=== PATIENT | male | born 1945 | race Caucasian/White ===

== ENCOUNTER → 2018-07-07 07:32 | Outpatient (CLI) | payer OTHER, SELFPAY ==
[2018-07-07 08:11] LABS: Add Manual Diff / Slide Review NO; Basophils Percent Auto 0.6 % (0-2); Eosinophils Percent Auto 6.1 % (2-4); Hemoglobin 13.8 g/dL (13.5-17.5); Lymphocytes Percent Auto 51.2 % (25-40); Mean Corpuscular HGB Conc 33.8 % (30-36); Mean Corpuscular Hemoglobin 30.9 PG (26-34); Mean Corpuscular Volume 91.4 fL (80-100); Monocytes Percent Auto 5.9 % (3-14); Neutrophils Absolute Auto 2000 /uL (3000-5900); Neutrophils Percent Auto 36.2 % (50-75); Platelet Count 222 X10^3/uL (150-400); Red Blood Cell Count 4.48 X10^6/uL (4.5-5.9); White Blood Cell Count 5.7 X10^3/uL (4.5-11.0)
[2018-07-07 08:58] LABS: Thyroid Stimulating Hormone 1.35 uIU/mL (0.47-4.68)
[2018-07-07 09:05] LABS: Alanine Aminotransferase 39 IU/L (21-72); Albumin 4.3 g/dL (3.5-5.0); Albumin Globulin Ratio 1.7 (1.0-2.8); Alkaline Phosphatase 44 U/L (38-126); Aspartate Aminotransferase 29 IU/L (17-59); BUN Creatinine Ratio 16.4 (6-22); Bilirubin Total 0.5 mg/dL (0.2-1.3); Blood Urea Nitrogen 18 mg/dL (9-20); Calcium 9.5 mg/dL (8.4-10.2); Carbon Dioxide 27 mmol/L (22-32); Chloride 106 mmol/L (98-107); Cholesterol 170 mg/dL (140-199); Estimated Glomerular Filt Rate > 60.0 mL/min (>60); Globulin 2.5 g/dL (1.7-4.1); Glucose 99 mg/dL (80-110); HDL Cholesterol 37 mg/dL (40-60); HEMOLYSIS < 15 (0-50); LDL Cholesterol Calculated 105 mg/dL (<100); Potassium 4.7 mmol/L (3.4-5.1); Sodium 142 mmol/L (137-145); Total Protein 6.8 g/dL (6.3-8.2); Triglycerides 141 mg/dL (35-150)
[2018-07-07 09:34] LABS: Prostate Specific Antigen Scrn 3.96 ng/mL (0.1-4.0)
== END ==
PROVIDERS: Family Provider Family Medicine; PCP Family Medicine; Visit Provider Family Medicine
DX: E78.5 Hyperlipidemia, unspecified (principal); I10 Essential (primary) hypertension; R97.20 Elevated prostate specific antigen [PSA]
CPT/HCPCS: 36415; 80053; 80061; 84443; 85025; G0103

== ENCOUNTER → 2018-07-14 11:29 | Outpatient (CLI) | payer OTHER, SELFPAY | PROVIDERS: Family Provider Family Medicine; PCP Family Medicine; Visit Provider Family Medicine | DX: R53.83 Other fatigue (principal) | CPT/HCPCS: 36415; 84403 ==

== ENCOUNTER → 2019-04-16 07:45 | Outpatient (CLI) | payer OTHER, SELFPAY ==
[2019-04-16 10:05] LABS: Prostate Specific Antigen 5.95 ng/mL (0.10-4.00)
== END ==
PROVIDERS: PCP Family Medicine; Visit Provider Family Medicine
DX: R35.0 Frequency of micturition (principal); Z87.898 Personal history of other specified conditions
CPT/HCPCS: 36415; 84153

== ENCOUNTER → 2019-04-28 10:04 | Outpatient (CLI) | payer OTHER, SELFPAY ==
--- NOTE | 2019-04-28 10:06 | DI.RAD.S_ITS ---
PROCEDURE: XR SHOULDER LT MIN 2V INDICATIONS: Pain TECHNIQUE: 3 views of the shoulder were acquired. COMPARISON: [facility], , SHOULDER MINIMUM 2VIEW RIGHT, 08/24/2014, 14:43. FINDINGS: Bones: No fractures or dislocations. No suspicious bony lesions. Visualized ribs appear intact. Soft tissues: No suspicious soft tissue calcifications. IMPRESSION: No trauma found. Source of pain is not seen. Dictated by: Spenser Bond M.D. on 04/28/2019 at 10:55 Approved by: Spenser Bond M.D. on 04/28/2019 at 10:55
--- NOTE | 2019-04-28 10:06 | DI.RAD.S_ITS ---
PROCEDURE: XR SHOULDER RT MIN 2V INDICATIONS: Pain TECHNIQUE: 3 views of the shoulder were acquired. COMPARISON: [facility], , SHOULDER MINIMUM 2VIEW RIGHT, 08/24/2014, 14:43. FINDINGS: Bones: No fractures or dislocations. Moderate a.c. joint osteoarthritis is again noted, similar to that present in the August 2014. No suspicious bony lesions. Visualized ribs appear intact. Soft tissues: No suspicious soft tissue calcifications. IMPRESSION: Moderate a.c. joint osteoarthritis, stable over time. Dictated by: Spenser Bond M.D. on 04/28/2019 at 11:09 Approved by: Spenser Bond M.D. on 04/28/2019 at 11:10
== END ==
PROVIDERS: PCP Family Medicine; Visit Provider Family Medicine
DX: M25.511 Pain in right shoulder (principal); M25.512 Pain in left shoulder; M19.011 Primary osteoarthritis, right shoulder
CPT/HCPCS: 73030

== ENCOUNTER → 2019-05-08 09:35 | Outpatient (CLI) | payer OTHER, SELFPAY ==
--- NOTE | 2019-05-08 09:36 | DI.MRI.S_ITS ---
PROCEDURE: MR SHOULDER RT WO CON INDICATIONS: Pain TECHNIQUE: Noncontrast oblique coronal T2 fast spin echo with fat saturation, oblique sagittal T1 spin echo and T2 fast spin echo with fat saturation, axial T1 spin echo and T2 fast spin echo with fat saturation through the shoulder. COMPARISON: [facility], MR, SHOULDER WITHOUT CONTRAST, 09/05/2014, 9:12. FINDINGS: Image quality: Excellent. Rotator cuff: The supraspinatus, infraspinatus, and subscapularis tendons appear intact throughout with left there is a finding of striations of elevated fluid signal within the supraspinatus portion of the rotator cuff, indicating presence of partial thickness tear, articular margin. This likely is chronic given presence of abnormal signal in that same area on prior MR scanning of the right shoulder 09/05/14. Sagittal images demonstrate no muscle atrophy. Bones and bursae: No bone marrow contusions or fractures. There is moderate acromioclavicular joint degeneration, and moderately severe such degeneration at the glenohumeral articulation where several subchondral cysts are seen in deep to the inferior third of the glenoid articular surface, previously present. The acromion demonstrates conventional anatomy, without an os acromiale. No pathologic subacromial-subdeltoid or subcoracoid bursal fluid is present. Capsule and soft tissues: In the absence of intra-articular contrast, the labrum and glenohumeral ligaments appear intact. The long head of the biceps tendon demonstrates normal location and morphology. The rotator interval appears normal, without fibrosis. The coracohumeral ligament is normal in thickness. IMPRESSION: Partial thickness likely chronic supraspinatus rotator cuff tear, given the striated elevated fluid signal in the same area prior supraspinatus tear that appeared acute identified 09/05/14 on prior shoulder MR scanning. No intra-articular loose body is seen. Moderate to moderately severe shoulder joint osteoarthritis contributing to chronic impingement against the normal course of the supraspinatus tendon. Dictated by: Spenser Bond M.D. on 05/10/2019 at 11:47 Approved by: Spenser Bond M.D. on 05/10/2019 at 12:47
== END ==
PROVIDERS: PCP Family Medicine; Visit Provider Family Medicine
DX: M25.511 Pain in right shoulder (principal); M75.111 Incomplete rotator cuff tear or rupture of right shoulder, not specified as traumatic; M75.41 Impingement syndrome of right shoulder; M19.011 Primary osteoarthritis, right shoulder
CPT/HCPCS: 73221

== ENCOUNTER 2019-06-08 11:15 | Outpatient (RCR) | payer OTHER, SELFPAY ==
--- NOTE | 2019-04-01 18:41 | PT.OIE ---
Current Diagnoses Pain in right shoulder (04/01/19) Pain in left shoulder (04/01/19) Past Medical History (Last Updated 07/13/18 @ 10:53 by Marcela Perkins) Elevated PSA (Chronic 2011) Hearing loss (Chronic 1995) Shoulder pain (Chronic 05/2014) Vertigo (Chronic 1997) Chicken pox (Resolved 1953) Measles (Resolved) Mumps (Resolved 1956) Past Surgical History (Last Updated 07/13/18 @ 10:53 by Marcela Perkins) No history of previous surgery (Resolved 01/2017) Provider Visit Care Team Role Provider Type Zac Polk MD Primary Care Provider Physician Specialty: Family Practice Address: [address] [place] [address] Email: [email or web address] KAY Ramirez Attending Provider Advanced Veneer Taping Machine Offbearer Specialty: [facility] Address: [address] [place] [address] Email: Physical Therapy Initial Evaluation PT-OP-A Visit Information Start: 03/26/19 16:55 Freq: Status: Active Protocol: Document 04/01/19 13:41 LRN (Rec: 04/01/19 13:57 LRN [id number]) Out-Patient Physical Therapy Visit Information Visit Information Visit Type Initial Evaluation Visit Start Time 13:45 Visit Stop Time 14:30 Total Visit Minutes 45 Visit Number 1 Number of BACK TUFTER Visits 0 Evaluation Information Evaluation Date 04/01/19 Precautions Precautions Controlled HBP PT-OP-B Current Condition Start: 03/26/19 16:55 Freq: Status: Active Protocol: Document 04/01/19 13:41 LRN (Rec: 04/01/19 13:57 LRN [id number]) Current Condition History of Current Condition Onset Date 1 month ago History of Current Condition Was in [place]. Was doing a lot of swimming and fishing for 3 weeks and woke with vance shoulder pain that continued to worsen. Sometimes it is on the top of the shoulder and sometimes it radiates down to the mid lateral arms. He reports recently he is able to move around better and doesn' t hurt as bad when waking up. He is taking medications for his feet (anti-inflammatory) & Alleve for 4 months. Pt reports his shoulder pain is 6 /10 at its worse. Currently while at rest his pain is 2/10 . Resting doesn't change his pain. He denies numbness or tingling in his UE's. Treatment Goals Patient/Caregiver Goals Pt goals: 1) to learn what to do to properly care for his shoulders 2) be able to reach above shoulder height without pain 3) have less pain with waking in the morning (2/10 or less) Prior Functional Status Baseline Function- ADL's Independent Baseline Function- Mobility Independent Baseline Function- Other No shoulder pain, bilaterally, upon walking or using the arms. Current Functional Impairments (Reported) Functional Limitations- ADL's Unable to lift his arms without onset of shoulder pain . Pain starts ~ 30 or 90 deg' s flexion, primarily on the right. Functional Limitations- Mobility/Gait Lifting overhead Functional Limitations- Other Waking up from sleeping is painful. Personal Factors Other Personal Factors That May Effect Controlled HBP Therapy/Recovery PT-OP-C Subjective Start: 03/26/19 16:55 Freq: Status: Active Protocol: Document 04/01/19 13:41 LRN (Rec: 04/01/19 13:57 LRN [id number]) Patient Questionnaires Quick Dash- Upper Extremity Quick Dash UE Score 45 Quick Dash UE Impairment 40 to 59% Impaired (Score 40- 59) OP-PT Pain Assessment Location R Shoulders Pain Location Details Subacromial Intensity 6 Scale Used Numeric (1 - 10) Description Pressure Tightness With Movement Description- Other At rest 2/10 pain Frequency Constant Pain Aggravating Factors Changing Position Pain Alleviating Factors Cold Heat Medication PT-OP-F Manual Assessment Start: 03/26/19 16:55 Freq: Status: Active Protocol: Document 04/01/19 13:41 LRN (Rec: 04/01/19 18:29 LRN [id number]) Manual Assessments Soft Tissue Assessment Soft Tissue Mobility Assessment Tenderness of bilateral subacromial region. Joint Mobility Assessment Joint Mobility Assessment Decreased PA mobility of C7-T6 due to pain. Decreased rotation mobility of T3-T6 due to pain. PT-OP-H Neuro Start: 03/26/19 16:55 Freq: Status: Active Protocol: Document 04/01/19 13:41 LRN (Rec: 04/01/19 18:29 LRN [id number]) Sensation Evaluation Gross Sensation Gross Sensation WNL PT-OP-J Posture/Palpation/Skin Start: 03/26/19 16:55 Freq: Status: Active Protocol: Document 04/01/19 13:41 LRN (Rec: 04/01/19 18:31 LRN [id number]) Posture Evaluation Position Standing Head/C-Spine Posture Side Bent Right T-Spine Posture Flattened L-Spine Posture Decreased Lordosis Shoulder Posture (L) Rounded (R) Rounded Scapula Posture (R) Rotated Down (R) Depressed PT-OP-K Range of Motion Start: 03/26/19 16:55 Freq: Status: Active Protocol: Document 04/01/19 13:41 LRN (Rec: 04/01/19 18:29 LRN [id number]) Cervical Spine Range of Motion Cervical Spine Active Degrees Testing Position Sitting Flexion 50 Extension 52 Rotation Left 60 Rotation Right 60 Lateral Flexion Left 20 Lateral Flexion Right 27 ROM Limitations Soft Tissue Tightness Shoulder Goniometric Range of Motion Shoulder Measured in Degrees Right Active Testing Position Sitting: Flex & AB. Supine: ER & IR Flexion 168 Abduction 180 External Rotation at 90 degrees 90 Abduction Internal Rotation 50 Left Active Testing Position Sitting: Flex & AB. Supine: ER & IR Flexion 150 Abduction 180 External Rotation at 90 degrees 82 Abduction Internal Rotation 65 PT-OP-L Special Tests Start: 03/26/19 16:55 Freq: Status: Active Protocol: Document 04/01/19 13:41 LRN (Rec: 04/01/19 18:29 LRN [id number]) Special Tests Shoulder Special Tests Lombardi Luis F Impingement Test Results + Right, - Left Elevation Impingement Test Results + Bilterally PT-OP-M Strength Start: 03/26/19 16:55 Freq: Status: Active Protocol: Document 04/01/19 13:41 LRN (Rec: 04/01/19 18:29 LRN [id number]) Shoulder Strength Shoulder Manual Muscle Testing Right Reason Not Measured WFL Comments A little pain with testing of shoulder ER's. Left Reason Not Measured WFL PT-OP-Q Treatments Start: 03/26/19 16:55 Freq: Status: Active Protocol: Document 04/01/19 13:41 LRN (Rec: 04/01/19 18:29 LRN [id number]) Self-Care/Home Management Treatment Education Patient Education Home Exercise Program Pain Management Other Education I/S pt in use or Cryotherapy for pain management after exercise. Pt to try use or heat if pain at other times. Activities Self-Care/Home Management Activities Pt I/S in stretch to subscapularis in supine and sidelie. PT-OP-T Assessment and Plan Start: 03/26/19 16:55 Freq: Status: Active Protocol: Document 04/01/19 13:41 LRN (Rec: 04/01/19 13:57 LRN [id number]) Physical Therapy Assessment Rehab Potential Rehabilitation Potential Good Evaluation Complexity Number of Personal Factors/Comorbidities 0 Number of Body Systems Impaired 4 or More Clinical Presentation at Evaluation Stable Impairments Impairments Activity Tolerance Pain Posture ROM Strength Goals Three Impairment Pain in shoulders upon waking. Senior Living Goal (LTG) Pt will be able to wake with minimal discomfort in the shoulders with pain no greater than 1/10. LTG Duration 06/25/19 Two Impairment Pt unable to reach overhead without pain. Implementation Lead Goal (LTG) Improve pt's shoulder mechanics for ability to reach overhead without pain. LTG Duration 06/25/19 One Impairment Pt lacks appropriate self care HEP. Implementation Lead Goal (LTG) Pt will be independent with a self care HEP. LTG Duration 06/25/19 Assessment Summary Assessment Pt presents with mechanical dysfunction of the scapulohumeral rhythm of the R shoulder with positive provocation tests for impingement syndrome. The L shoulder demonstrates one positive test for impingement syndrome with less dysfunction in the left compared to the right shoulder. The pt appears to have normal strength in the rotator cuff muscles, but shows dysfunction of the scapular stabilizers. He also presents with postural dysfunction of the upper thoracic spine and tenderness with palpation along the spine and laterally. The pt will benefit from skilled physical therapy to improve the strength of the scapular stabilizers and normalize the scapulohumeral rhythm, eliminating his signs of impingement. The pt does report a history of a tear of a muscle in the shoulder at one time; therefore his progress may be hindered by his previous injury. Physical Therapy Plan Frequency and Duration Plan of Care Start Date 04/01/19 Plan of Care End Date 06/25/19 Therapeutic Interventions Therapeutic Interventions Aquatic Therapy Home Exercise Program Joint Mobilizations Manual Therapy Neuromuscular Re-education Patient/Caregiver Education Self-Care/Home Management Soft Tissue Mobilization Taping Therapeutic Exercises Modalities Cold Pack/Ice Massage Electric Stimulation Hot Packs Iontophoresis Ultrasound Next Visit Focus/Plan Next Note Type Treatment Note Next Visit Plan Review HEP: stretch into shoulder IR & sidelie IR stretch. Initiate scapular stabilization ex's and MWM for retraining of proper SHR. Ultrasound if needed for pain management. Manual mob for upper T/S to improve flex and ex to decrease curvature of the spine (apex L). End with modalities if needed.
--- NOTE | 2019-04-01 18:42 | PT.OPPOC ---
Current Diagnoses Pain in right shoulder (04/01/19) Pain in left shoulder (04/01/19) Provider Visit Care Team Role Provider Type Zac Polk MD Primary Care Provider Physician Specialty: Family Practice Address: [address] [place] [address], [id number] Email: [email or web address] KAY Ramirez Attending Provider Advanced Heddle Machine Operator Specialty: Family Practice Address: [address] [place] [address], [id number] Email: Plan Of Care PT-OP-T Assessment and Plan Start: 03/26/19 16:55 Freq: Status: Active Protocol: Document 04/01/19 13:41 LRN (Rec: 04/01/19 13:57 LRN [id number]) Physical Therapy Assessment Rehab Potential Rehabilitation Potential Good Evaluation Complexity Number of Personal Factors/Comorbidities 0 Number of Body Systems Impaired 4 or More Clinical Presentation at Evaluation Stable Impairments Impairments Activity Tolerance Pain Posture ROM Strength Goals Three Impairment Pain in shoulders upon waking. Freelance Graphic Designer Goal (LTG) Pt will be able to wake with minimal discomfort in the shoulders with pain no greater than 1/10. LTG Duration 06/25/19 Two Impairment Pt unable to reach overhead without pain. Senior Living Goal (LTG) Improve pt's shoulder mechanics for ability to reach overhead without pain. LTG Duration 06/25/19 One Impairment Pt lacks appropriate self care HEP. Freelance Graphic Designer Goal (LTG) Pt will be independent with a self care HEP. LTG Duration 06/25/19 Assessment Summary Assessment Pt presents with mechanical dysfunction of the scapulohumeral rhythm of the R shoulder with positive provocation tests for impingement syndrome. The L shoulder demonstrates one positive test for impingement syndrome with less dysfunction in the left compared to the right shoulder. The pt appears to have normal strength in the rotator cuff muscles, but shows dysfunction of the scapular stabilizers. He also presents with postural dysfunction of the upper thoracic spine and tenderness with palpation along the spine and laterally. The pt will benefit from skilled physical therapy to improve the strength of the scapular stabilizers and normalize the scapulohumeral rhythm, eliminating his signs of impingement. The pt does report a history of a tear of a muscle in the shoulder at one time; therefore his progress may be hindered by his previous injury. Physical Therapy Plan Frequency and Duration Plan of Care Start Date 04/01/19 Plan of Care End Date 06/25/19 Therapeutic Interventions Therapeutic Interventions Aquatic Therapy Home Exercise Program Joint Mobilizations Manual Therapy Neuromuscular Re-education Patient/Caregiver Education Self-Care/Home Management Soft Tissue Mobilization Taping Therapeutic Exercises Modalities Cold Pack/Ice Massage Electric Stimulation Hot Packs Iontophoresis Ultrasound Next Visit Focus/Plan Next Note Type Treatment Note Next Visit Plan Review HEP: stretch into shoulder IR & sidelie IR stretch. Initiate scapular stabilization ex's and MWM for retraining of proper SHR. Ultrasound if needed for pain management. Manual mob for upper T/S to improve flex and ex to decrease curvature of the spine (apex L). End with modalities if needed. Plan of Care Dates Plan of Care Start Date 04/01/19 Plan of Care End Date 06/25/19 Please Sign and Return: I have reviewed this Plan of Care and certify that the skilled therapy services above are required to meet the patient?s needs. Physician Signature Date Printed Name and Credentials Clinical Instructor Signature Printed Name and Credentials
--- NOTE | 2019-04-05 16:13 | PT.OTN ---
Current Diagnoses Pain in right shoulder (04/05/19) Pain in left shoulder (04/05/19) Physical Therapy Treatment Note PT-OP-A Visit Information Start: 03/26/19 16:55 Freq: Status: Active Protocol: Document 04/05/19 10:37 LRN (Rec: 04/05/19 11:21 LRN [id number]) Out-Patient Physical Therapy Visit Information Visit Information Visit Type Treatment Note Visit Start Time 10:39 Visit Stop Time 11:19 Total Visit Minutes 40 Visit Number 2 Number of COLLAR PADDER BLINDSTITCH Visits 0 Evaluation Information Evaluation Date 04/01/19 Precautions Precautions Controlled HBP PT-OP-B Current Condition Start: 03/26/19 16:55 Freq: Status: Active Protocol: Document 04/01/19 13:41 LRN (Rec: 04/01/19 13:57 LRN [id number]) Current Condition History of Current Condition Onset Date 1 month ago History of Current Condition Was in [place]. Was doing a lot of swimming and fishing for 3 weeks and woke with vance shoulder pain that continued to worsen. Sometimes it is on the top of the shoulder and sometimes it radiates down to the mid lateral arms. He reports recently he is able to move around better and doesn' t hurt as bad when waking up. He is taking medications for his feet (anti-inflammatory) & Alleve for 4 months. Pt reports his shoulder pain is 6 /10 at its worse. Currently while at rest his pain is 2/10 . Resting doesn't change his pain. He denies numbness or tingling in his UE's. Treatment Goals Patient/Caregiver Goals Pt goals: 1) to learn what to do to properly care for his shoulders 2) be able to reach above shoulder height without pain 3) have less pain with waking in the morning (2/10 or less) Prior Functional Status Baseline Function- ADL's Independent Baseline Function- Mobility Independent Baseline Function- Other No shoulder pain, bilaterally, upon walking or using the arms. Current Functional Impairments (Reported) Functional Limitations- ADL's Unable to lift his arms without onset of shoulder pain . Pain starts ~ 30 or 90 deg' s flexion, primarily on the right. Functional Limitations- Mobility/Gait Lifting overhead Functional Limitations- Other Waking up from sleeping is painful. Personal Factors Other Personal Factors That May Effect Controlled HBP Therapy/Recovery PT-OP-C Subjective Start: 03/26/19 16:55 Freq: Status: Active Protocol: Document 04/05/19 10:37 LRN (Rec: 04/05/19 11:21 LRN [id number]) OP-PT Subjective Patient Comments Patient Comments No change PT-OP-F Manual Assessment Start: 03/26/19 16:55 Freq: Status: Active Protocol: Document 04/01/19 13:41 LRN (Rec: 04/01/19 18:29 LRN [id number]) Manual Assessments Soft Tissue Assessment Soft Tissue Mobility Assessment Tenderness of bilateral subacromial region. Joint Mobility Assessment Joint Mobility Assessment Decreased PA mobility of C7-T6 due to pain. Decreased rotation mobility of T3-T6 due to pain. PT-OP-H Neuro Start: 03/26/19 16:55 Freq: Status: Active Protocol: Document 04/01/19 13:41 LRN (Rec: 04/01/19 18:29 LRN [id number]) Sensation Evaluation Gross Sensation Gross Sensation WNL PT-OP-J Posture/Palpation/Skin Start: 03/26/19 16:55 Freq: Status: Active Protocol: Document 04/01/19 13:41 LRN (Rec: 04/01/19 18:31 LRN [id number]) Posture Evaluation Position Standing Head/C-Spine Posture Side Bent Right T-Spine Posture Flattened L-Spine Posture Decreased Lordosis Shoulder Posture (L) Rounded (R) Rounded Scapula Posture (R) Rotated Down (R) Depressed PT-OP-K Range of Motion Start: 03/26/19 16:55 Freq: Status: Active Protocol: Document 04/01/19 13:41 LRN (Rec: 04/01/19 18:29 LRN [id number]) Cervical Spine Range of Motion Cervical Spine Active Degrees Testing Position Sitting Flexion 50 Extension 52 Rotation Left 60 Rotation Right 60 Lateral Flexion Left 20 Lateral Flexion Right 27 ROM Limitations Soft Tissue Tightness Shoulder Goniometric Range of Motion Shoulder Measured in Degrees Right Active Testing Position Sitting: Flex & AB. Supine: ER & IR Flexion 168 Abduction 180 External Rotation at 90 degrees 90 Abduction Internal Rotation 50 Left Active Testing Position Sitting: Flex & AB. Supine: ER & IR Flexion 150 Abduction 180 External Rotation at 90 degrees 82 Abduction Internal Rotation 65 PT-OP-L Special Tests Start: 03/26/19 16:55 Freq: Status: Active Protocol: Document 04/01/19 13:41 LRN (Rec: 04/01/19 18:29 LRN [id number]) Special Tests Shoulder Special Tests Lombardi Luis F Impingement Test Results + Right, - Left Elevation Impingement Test Results + Bilterally PT-OP-M Strength Start: 03/26/19 16:55 Freq: Status: Active Protocol: Document 04/01/19 13:41 LRN (Rec: 04/01/19 18:29 LRN [id number]) Shoulder Strength Shoulder Manual Muscle Testing Right Reason Not Measured WFL Comments A little pain with testing of shoulder ER's. Left Reason Not Measured WFL PT-OP-Q Treatments Start: 03/26/19 16:55 Freq: Status: Active Protocol: Document 04/05/19 10:37 LRN (Rec: 04/05/19 11:21 LRN [id number]) Therapeutic Exercises Supine Exercises Lat pull down Supine Exercise Name Lat Pull Down Side bilateral Resistance Lev 2 TBand Reps/Minutes 10 x 3 Comments Starting@ 90 deg's flex R shoulder IR Side right Reps/Minutes 2 Sidelying Exercises Shoulder IR stretch Side right Reps/Minutes 2 Sitting Exercises Upper thoracic flex stretch Sitting Exercise Name Forward bend Reps/Minutes 3' Comments Extra time for training. Standing Exercises L Sidebend Standing Exercise Name Upper back L sidebend lifting R shoulder Reps/Minutes 3 Rhomboid Doorway stretdchj Reps/Minutes 3 Comments Extra time taken for training. Manual Therapy Treatment Soft Tissue Mobilization Pec Stretch Body Location Pec Minor Mobilization Type Sustained Pressure Intensity/Depth Moderate Body Position Supine Manual Techniques MWM Scapula Type Assist scapula for depression and retraction and rotation Body Location Scapula/Lat Dorsi - bilaterally, individually Body Position Supine Reps/Duration 25' Comments Performed x 2 each Self-Care/Home Management Treatment Education Patient Education Home Exercise Program Activities Self-Care/Home Management Activities Issued Lev 2 T-Band 2 with I/S in Lat pull down ex at home ( no arching of back). PT-OP-T Assessment and Plan Start: 03/26/19 16:55 Freq: Status: Active Protocol: Document 04/05/19 10:37 LRN (Rec: 04/05/19 11:21 LRN [id number]) Physical Therapy Assessment Assessment Summary Assessment Pt presents with mechanical dysfunction of the scapulohumeral rhythm of the R shoulder with positive provocation tests for impingement syndrome with less dysfunction in the left compared to the right shoulder . He showed +response to MWM training for painfree bilateral shoulder ROM in supine. Normal strength in the rotator cuff muscles. He also presents with postural dysfunction of the upper thoracic spine and tenderness with palpation along the spine and laterally. The pt does report a history of a tear of a muscle in the shoulder at one time; therefore his progress may be hindered by his previous injury. Physical Therapy Plan Frequency and Duration Frequency of Treatment 2x/Week Plan of Care Start Date 04/01/19 Plan of Care End Date 06/25/19 Next Visit Focus/Plan Next Note Type Treatment Note Next Visit Plan Due to scheduling difficulties the pt is needing appts this month. Pt might need placement with MADDIE Allen to continue therapy. Cont scapular stabilization ex's and MWM for retraining of proper SHR. Ultrasound if needed for pain management. Cont manual mob for upper T/S to improve flex and ex to decrease curvature of the spine (apex L). End with modalities if needed.
--- NOTE | 2019-04-09 11:42 | PT.OTN ---
Current Diagnoses Pain in right shoulder (04/09/19) Pain in left shoulder (04/09/19) Physical Therapy Treatment Note PT-OP-A Visit Information Start: 03/26/19 16:55 Freq: Status: Active Protocol: Document 04/09/19 10:34 LRN (Rec: 04/09/19 11:22 LRN [id number]) Out-Patient Physical Therapy Visit Information Visit Information Visit Type Treatment Note Visit Start Time 10:38 Visit Stop Time 11:26 Total Visit Minutes 48 Visit Number 3 Number of EXHIBIT DESIGNER Visits 0 Evaluation Information Evaluation Date 04/01/19 Precautions Precautions Controlled HBP PT-OP-B Current Condition Start: 03/26/19 16:55 Freq: Status: Active Protocol: Document 04/01/19 13:41 LRN (Rec: 04/01/19 13:57 LRN [id number]) Current Condition History of Current Condition Onset Date 1 month ago History of Current Condition Was in [place]. Was doing a lot of swimming and fishing for 3 weeks and woke with vance shoulder pain that continued to worsen. Sometimes it is on the top of the shoulder and sometimes it radiates down to the mid lateral arms. He reports recently he is able to move around better and doesn' t hurt as bad when waking up. He is taking medications for his feet (anti-inflammatory) & Alleve for 4 months. Pt reports his shoulder pain is 6 /10 at its worse. Currently while at rest his pain is 2/10 . Resting doesn't change his pain. He denies numbness or tingling in his UE's. Treatment Goals Patient/Caregiver Goals Pt goals: 1) to learn what to do to properly care for his shoulders 2) be able to reach above shoulder height without pain 3) have less pain with waking in the morning (2/10 or less) Prior Functional Status Baseline Function- ADL's Independent Baseline Function- Mobility Independent Baseline Function- Other No shoulder pain, bilaterally, upon walking or using the arms. Current Functional Impairments (Reported) Functional Limitations- ADL's Unable to lift his arms without onset of shoulder pain . Pain starts ~ 30 or 90 deg' s flexion, primarily on the right. Functional Limitations- Mobility/Gait Lifting overhead Functional Limitations- Other Waking up from sleeping is painful. Personal Factors Other Personal Factors That May Effect Controlled HBP Therapy/Recovery PT-OP-C Subjective Start: 03/26/19 16:55 Freq: Status: Active Protocol: Document 04/09/19 10:34 LRN (Rec: 04/09/19 11:22 LRN [id number]) OP-PT Subjective Patient Comments Patient Comments MD appt for 04/28/19. Shoulder pain is 5/10 and worse at night. After manual traction: L is 2/10, R is 0/10. PT-OP-F Manual Assessment Start: 03/26/19 16:55 Freq: Status: Active Protocol: Document 04/01/19 13:41 LRN (Rec: 04/01/19 18:29 LRN [id number]) Manual Assessments Soft Tissue Assessment Soft Tissue Mobility Assessment Tenderness of bilateral subacromial region. Joint Mobility Assessment Joint Mobility Assessment Decreased PA mobility of C7-T6 due to pain. Decreased rotation mobility of T3-T6 due to pain. PT-OP-H Neuro Start: 03/26/19 16:55 Freq: Status: Active Protocol: Document 04/01/19 13:41 LRN (Rec: 04/01/19 18:29 LRN [id number]) Sensation Evaluation Gross Sensation Gross Sensation WNL PT-OP-J Posture/Palpation/Skin Start: 03/26/19 16:55 Freq: Status: Active Protocol: Document 04/01/19 13:41 LRN (Rec: 04/01/19 18:31 LRN [id number]) Posture Evaluation Position Standing Head/C-Spine Posture Side Bent Right T-Spine Posture Flattened L-Spine Posture Decreased Lordosis Shoulder Posture (L) Rounded (R) Rounded Scapula Posture (R) Rotated Down (R) Depressed PT-OP-K Range of Motion Start: 03/26/19 16:55 Freq: Status: Active Protocol: Document 04/01/19 13:41 LRN (Rec: 04/01/19 18:29 LRN [id number]) Cervical Spine Range of Motion Cervical Spine Active Degrees Testing Position Sitting Flexion 50 Extension 52 Rotation Left 60 Rotation Right 60 Lateral Flexion Left 20 Lateral Flexion Right 27 ROM Limitations Soft Tissue Tightness Shoulder Goniometric Range of Motion Shoulder Measured in Degrees Right Active Testing Position Sitting: Flex & AB. Supine: ER & IR Flexion 168 Abduction 180 External Rotation at 90 degrees 90 Abduction Internal Rotation 50 Left Active Testing Position Sitting: Flex & AB. Supine: ER & IR Flexion 150 Abduction 180 External Rotation at 90 degrees 82 Abduction Internal Rotation 65 PT-OP-L Special Tests Start: 03/26/19 16:55 Freq: Status: Active Protocol: Document 04/01/19 13:41 LRN (Rec: 04/01/19 18:29 LRN [id number]) Special Tests Shoulder Special Tests Lombardi Luis F Impingement Test Results + Right, - Left Elevation Impingement Test Results + Bilterally PT-OP-M Strength Start: 03/26/19 16:55 Freq: Status: Active Protocol: Document 04/01/19 13:41 LRN (Rec: 04/01/19 18:29 LRN [id number]) Shoulder Strength Shoulder Manual Muscle Testing Right Reason Not Measured WFL Comments A little pain with testing of shoulder ER's. Left Reason Not Measured WFL PT-OP-Q Treatments Start: 03/26/19 16:55 Freq: Status: Active Protocol: Document 04/09/19 10:34 LRN (Rec: 04/09/19 11:22 LRN [id number]) Therapeutic Exercises Supine Exercises Cervical Rotation Supine Exercise Name Actvie C/S Rotation Side bilateral Reps/Minutes 3' Deep Cervical Neck Flexors Supine Exercise Name Deep Cervical Flexors Isometric Reps/Minutes 10' Comments Extra time taken for training Shoulder PROM Supine Exercise Name Flex Side right Reps/Minutes 2' Manual Therapy Treatment Soft Tissue Mobilization UT Body Location L UT Mobilization Type Sustained Pressure Trigger Point Release Intensity/Depth Moderate Body Position Supine Joint Mobilizations Cervicothoracic junction Joint C7-T2 Direction PA Grade II Body Position Supine Reps/Duration 4' Manual Traction Cervical Details Cervical Axial traction Body Position Supine Reps/Duration 8' Comments Intermittent traction Manual Techniques MWM Scapula Type Assist scapula for depression and retraction and rotation Body Location Scapula/Lat Dorsi - bilaterally, individually Body Position Supine Reps/Duration 1' Comments Pt did not tolerate on R; therefore deferred treatment. PT-OP-R Modalities Start: 03/26/19 16:55 Freq: Status: Active Protocol: Document 04/09/19 10:38 LRN (Rec: 04/09/19 11:42 LRN [id number]) Electric Stimulation Electric Stimulation Interferential Current (IFC) Body Location Neck > Upper Thoracic Paraspinals Duration (Minutes) 15 Intensity 30 Target/Sweep Sweep Patient Position Hooklying Combined With Heat/Cold Hot Pack PT-OP-T Assessment and Plan Start: 03/26/19 16:55 Freq: Status: Active Protocol: Document 04/09/19 10:34 LRN (Rec: 04/09/19 11:22 LRN [id number]) Physical Therapy Assessment Assessment Summary Assessment + response to manual cervical traction with resolution of R shoulder pain except with repetitive shoulder flex, and decrease L shoulder pain to 2/ 10. Deferred scapular stabilization and SHR training due to bilateral shoulder pain that appears cervical in nature. Today L is worse than R. Deferred treatment for postural dysfunction of the upper T/S spine and tenderness along the spine and laterally . Progress hindered by new cervical involvement and his previous injury of a muscle tear in the shoulder. Physical Therapy Plan Frequency and Duration Frequency of Treatment 2x/Week Plan of Care Start Date 04/01/19 Plan of Care End Date 06/25/19 Next Visit Focus/Plan Next Note Type Treatment Note Next Visit Plan Danny Gaytan traction at end of therapy if cervical involvement is still present. Cont scapular stabilization ex's and MWM for retraining of proper SHR. Cont manual mob for upper T/S to improve flex and ex to decrease curvature of the spine (apex L).
--- NOTE | 2019-04-16 14:12 | PT.OTN ---
Current Diagnoses Pain in right shoulder (04/16/19) Pain in left shoulder (04/16/19) Physical Therapy Treatment Note PT-OP-A Visit Information Start: 03/26/19 16:55 Freq: Status: Active Protocol: Document 04/16/19 11:25 LRN (Rec: 04/16/19 14:11 LRN [id number]) Out-Patient Physical Therapy Visit Information Visit Information Visit Type Treatment Note Visit Start Time 11:25 Visit Stop Time 12:15 Total Visit Minutes 50 Visit Number 4 Number of RESEARCH STATISTICIAN Visits 0 Evaluation Information Evaluation Date 04/01/19 Precautions Precautions Controlled HBP PT-OP-B Current Condition Start: 03/26/19 16:55 Freq: Status: Active Protocol: Document 04/01/19 13:41 LRN (Rec: 04/01/19 13:57 LRN [id number]) Current Condition History of Current Condition Onset Date 1 month ago History of Current Condition Was in [place]. Was doing a lot of swimming and fishing for 3 weeks and woke with vance shoulder pain that continued to worsen. Sometimes it is on the top of the shoulder and sometimes it radiates down to the mid lateral arms. He reports recently he is able to move around better and doesn' t hurt as bad when waking up. He is taking medications for his feet (anti-inflammatory) & Alleve for 4 months. Pt reports his shoulder pain is 6 /10 at its worse. Currently while at rest his pain is 2/10 . Resting doesn't change his pain. He denies numbness or tingling in his UE's. Treatment Goals Patient/Caregiver Goals Pt goals: 1) to learn what to do to properly care for his shoulders 2) be able to reach above shoulder height without pain 3) have less pain with waking in the morning (2/10 or less) Prior Functional Status Baseline Function- ADL's Independent Baseline Function- Mobility Independent Baseline Function- Other No shoulder pain, bilaterally, upon walking or using the arms. Current Functional Impairments (Reported) Functional Limitations- ADL's Unable to lift his arms without onset of shoulder pain . Pain starts ~ 30 or 90 deg' s flexion, primarily on the right. Functional Limitations- Mobility/Gait Lifting overhead Functional Limitations- Other Waking up from sleeping is painful. Personal Factors Other Personal Factors That May Effect Controlled HBP Therapy/Recovery PT-OP-C Subjective Start: 03/26/19 16:55 Freq: Status: Active Protocol: Document 04/16/19 11:25 LRN (Rec: 04/16/19 14:11 LRN [id number]) OP-PT Subjective Patient Comments Patient Comments Improved. He was able to pour a cup of coffee without pain. Pain now in bilateral shoulders, and hurts to raise arms. PT-OP-F Manual Assessment Start: 03/26/19 16:55 Freq: Status: Active Protocol: Document 04/01/19 13:41 LRN (Rec: 04/01/19 18:29 LRN [id number]) Manual Assessments Soft Tissue Assessment Soft Tissue Mobility Assessment Tenderness of bilateral subacromial region. Joint Mobility Assessment Joint Mobility Assessment Decreased PA mobility of C7-T6 due to pain. Decreased rotation mobility of T3-T6 due to pain. PT-OP-H Neuro Start: 03/26/19 16:55 Freq: Status: Active Protocol: Document 04/01/19 13:41 LRN (Rec: 04/01/19 18:29 LRN [id number]) Sensation Evaluation Gross Sensation Gross Sensation WNL PT-OP-J Posture/Palpation/Skin Start: 03/26/19 16:55 Freq: Status: Active Protocol: Document 04/01/19 13:41 LRN (Rec: 04/01/19 18:31 LRN [id number]) Posture Evaluation Position Standing Head/C-Spine Posture Side Bent Right T-Spine Posture Flattened L-Spine Posture Decreased Lordosis Shoulder Posture (L) Rounded (R) Rounded Scapula Posture (R) Rotated Down (R) Depressed PT-OP-K Range of Motion Start: 03/26/19 16:55 Freq: Status: Active Protocol: Document 04/01/19 13:41 LRN (Rec: 04/01/19 18:29 LRN [id number]) Cervical Spine Range of Motion Cervical Spine Active Degrees Testing Position Sitting Flexion 50 Extension 52 Rotation Left 60 Rotation Right 60 Lateral Flexion Left 20 Lateral Flexion Right 27 ROM Limitations Soft Tissue Tightness Shoulder Goniometric Range of Motion Shoulder Measured in Degrees Right Active Testing Position Sitting: Flex & AB. Supine: ER & IR Flexion 168 Abduction 180 External Rotation at 90 degrees 90 Abduction Internal Rotation 50 Left Active Testing Position Sitting: Flex & AB. Supine: ER & IR Flexion 150 Abduction 180 External Rotation at 90 degrees 82 Abduction Internal Rotation 65 PT-OP-L Special Tests Start: 03/26/19 16:55 Freq: Status: Active Protocol: Document 04/01/19 13:41 LRN (Rec: 04/01/19 18:29 LRN [id number]) Special Tests Shoulder Special Tests Lombardi Luis F Impingement Test Results + Right, - Left Elevation Impingement Test Results + Bilterally PT-OP-M Strength Start: 03/26/19 16:55 Freq: Status: Active Protocol: Document 04/01/19 13:41 LRN (Rec: 04/01/19 18:29 LRN [id number]) Shoulder Strength Shoulder Manual Muscle Testing Right Reason Not Measured WFL Comments A little pain with testing of shoulder ER's. Left Reason Not Measured WFL PT-OP-Q Treatments Start: 03/26/19 16:55 Freq: Status: Active Protocol: Document 04/16/19 11:25 LRN (Rec: 04/16/19 14:11 LRN [id number]) Therapeutic Exercises Supine Exercises Shoulder PROM Supine Exercise Name Flex Side bilateral Reps/Minutes 1' Lat pull down Supine Exercise Name Lat Pull Down Side bilateral Resistance Lev 2 TBand Reps/Minutes 10 x 3 Comments Starting@ neutral R shoulder IR Supine Exercise Name AROM Side right Reps/Minutes 1' Manual Therapy Treatment Soft Tissue Mobilization UT Body Location L UT Mobilization Type Sustained Pressure Trigger Point Release Intensity/Depth Moderate Body Position Supine Joint Mobilizations Cervicothoracic junction Joint C7-T2 Direction PA Grade II Body Position Supine Reps/Duration 4' Manual Traction Cervical Details Cervical Axial traction Body Position Supine Reps/Duration 8' Comments Intermittent traction Traction with mid range cervical rot & SB Manual Techniques MWM Scapula Type Assist scapula for depression and retraction & rotation with shoulder flex Body Location Scapula/Lat Dorsi - bilaterally, individually Body Position Supine Reps/Duration 3' Comments Pt did not tolerate on R; therefore deferred treatment. PT-OP-R Modalities Start: 03/26/19 16:55 Freq: Status: Active Protocol: Document 04/09/19 10:38 LRN (Rec: 04/09/19 11:42 LRN [id number]) Electric Stimulation Electric Stimulation Interferential Current (IFC) Body Location Neck > Upper Thoracic Paraspinals Duration (Minutes) 15 Intensity 30 Target/Sweep Sweep Patient Position Hooklying Combined With Heat/Cold Hot Pack PT-OP-T Assessment and Plan Start: 03/26/19 16:55 Freq: Status: Active Protocol: Document 04/16/19 11:25 LRN (Rec: 04/16/19 14:11 LRN [id number]) Physical Therapy Assessment Goals Three Impairment Pain in shoulders upon waking. Mcfp Goal (LTG) Pt will be able to wake with minimal discomfort in the shoulders with pain no greater than 1/10. LTG Duration 06/25/19 Two Impairment Pt unable to reach overhead without pain. Mcfp Goal (LTG) Improve pt's shoulder mechanics for ability to reach overhead without pain. LTG Duration 06/25/19 One Impairment Pt lacks appropriate self care HEP. Surveillance Director Goal (LTG) Pt will be independent with a self care HEP. LTG Duration 06/25/19 Assessment Summary Assessment Pt has end-range vance shoulder pain and R shoulder at @ ~20 deg's flex was not alleviated with C/S traction during movement. R shoulder pain in the first ~20 deg's of active flexion was reduced with MWM of R shoulder and scapula (PA pressure & scapula ADD/ retracted) in supine. Impingement bilaterally and poor scapular stabilization. Physical Therapy Plan Frequency and Duration Frequency of Treatment 2x/Week Plan of Care Start Date 04/01/19 Plan of Care End Date 06/25/19 Therapeutic Interventions Therapeutic Interventions Aquatic Therapy Home Exercise Program Joint Mobilizations Manual Therapy Neuromuscular Re-education Patient/Caregiver Education Self-Care/Home Management Soft Tissue Mobilization Taping Therapeutic Exercises Modalities Cold Pack/Ice Massage Electric Stimulation Hot Packs Iontophoresis Ultrasound Next Visit Focus/Plan Next Note Type Treatment Note Next Visit Plan Delgado C. traction at end of therapy if cervical involvement is still present. Cont scapular stabilization ex's and MWM for retraining of proper SHR. Cont manual mob for upper T/S to improve flex and ex to decrease curvature of the spine (apex L). Might try US if painful arc persists.
--- NOTE | 2019-04-20 12:07 | PT.OTN ---
Current Diagnoses Pain in right shoulder (04/20/19) Pain in left shoulder (04/20/19) Physical Therapy Treatment Note PT-OP-A Visit Information Start: 03/26/19 16:55 Freq: Status: Active Protocol: Document 04/20/19 08:15 LRN (Rec: 04/20/19 09:01 LRN [id number]) Out-Patient Physical Therapy Visit Information Visit Information Visit Type Treatment Note Visit Start Time 08:15 Visit Stop Time 09:05 Total Visit Minutes 50 Visit Number 5 Number of ACLS NURSE Visits 0 Evaluation Information Evaluation Date 04/01/19 Precautions Precautions Controlled HBP PT-OP-B Current Condition Start: 03/26/19 16:55 Freq: Status: Active Protocol: Document 04/01/19 13:41 LRN (Rec: 04/01/19 13:57 LRN [id number]) Current Condition History of Current Condition Onset Date 1 month ago History of Current Condition Was in [place]. Was doing a lot of swimming and fishing for 3 weeks and woke with vance shoulder pain that continued to worsen. Sometimes it is on the top of the shoulder and sometimes it radiates down to the mid lateral arms. He reports recently he is able to move around better and doesn' t hurt as bad when waking up. He is taking medications for his feet (anti-inflammatory) & Alleve for 4 months. Pt reports his shoulder pain is 6 /10 at its worse. Currently while at rest his pain is 2/10 . Resting doesn't change his pain. He denies numbness or tingling in his UE's. Treatment Goals Patient/Caregiver Goals Pt goals: 1) to learn what to do to properly care for his shoulders 2) be able to reach above shoulder height without pain 3) have less pain with waking in the morning (2/10 or less) Prior Functional Status Baseline Function- ADL's Independent Baseline Function- Mobility Independent Baseline Function- Other No shoulder pain, bilaterally, upon walking or using the arms. Current Functional Impairments (Reported) Functional Limitations- ADL's Unable to lift his arms without onset of shoulder pain . Pain starts ~ 30 or 90 deg' s flexion, primarily on the right. Functional Limitations- Mobility/Gait Lifting overhead Functional Limitations- Other Waking up from sleeping is painful. Personal Factors Other Personal Factors That May Effect Controlled HBP Therapy/Recovery PT-OP-C Subjective Start: 03/26/19 16:55 Freq: Status: Active Protocol: Document 04/20/19 08:15 LRN (Rec: 04/20/19 09:01 LRN [id number]) OP-PT Subjective Patient Comments Patient Comments Pain 2/10 after MWM on Biodex. Pn 2/10 after Delgado C. traction. PT-OP-F Manual Assessment Start: 03/26/19 16:55 Freq: Status: Active Protocol: Document 04/01/19 13:41 LRN (Rec: 04/01/19 18:29 LRN [id number]) Manual Assessments Soft Tissue Assessment Soft Tissue Mobility Assessment Tenderness of bilateral subacromial region. Joint Mobility Assessment Joint Mobility Assessment Decreased PA mobility of C7-T6 due to pain. Decreased rotation mobility of T3-T6 due to pain. PT-OP-H Neuro Start: 03/26/19 16:55 Freq: Status: Active Protocol: Document 04/01/19 13:41 LRN (Rec: 04/01/19 18:29 LRN [id number]) Sensation Evaluation Gross Sensation Gross Sensation WNL PT-OP-J Posture/Palpation/Skin Start: 03/26/19 16:55 Freq: Status: Active Protocol: Document 04/01/19 13:41 LRN (Rec: 04/01/19 18:31 LRN [id number]) Posture Evaluation Position Standing Head/C-Spine Posture Side Bent Right T-Spine Posture Flattened L-Spine Posture Decreased Lordosis Shoulder Posture (L) Rounded (R) Rounded Scapula Posture (R) Rotated Down (R) Depressed PT-OP-K Range of Motion Start: 03/26/19 16:55 Freq: Status: Active Protocol: Document 04/01/19 13:41 LRN (Rec: 04/01/19 18:29 LRN [id number]) Cervical Spine Range of Motion Cervical Spine Active Degrees Testing Position Sitting Flexion 50 Extension 52 Rotation Left 60 Rotation Right 60 Lateral Flexion Left 20 Lateral Flexion Right 27 ROM Limitations Soft Tissue Tightness Shoulder Goniometric Range of Motion Shoulder Measured in Degrees Right Active Testing Position Sitting: Flex & AB. Supine: ER & IR Flexion 168 Abduction 180 External Rotation at 90 degrees 90 Abduction Internal Rotation 50 Left Active Testing Position Sitting: Flex & AB. Supine: ER & IR Flexion 150 Abduction 180 External Rotation at 90 degrees 82 Abduction Internal Rotation 65 PT-OP-L Special Tests Start: 03/26/19 16:55 Freq: Status: Active Protocol: Document 04/01/19 13:41 LRN (Rec: 04/01/19 18:29 LRN [id number]) Special Tests Shoulder Special Tests Lombardi Luis F Impingement Test Results + Right, - Left Elevation Impingement Test Results + Bilterally PT-OP-M Strength Start: 03/26/19 16:55 Freq: Status: Active Protocol: Document 04/01/19 13:41 LRN (Rec: 04/01/19 18:29 LRN [id number]) Shoulder Strength Shoulder Manual Muscle Testing Right Reason Not Measured WFL Comments A little pain with testing of shoulder ER's. Left Reason Not Measured WFL PT-OP-Q Treatments Start: 03/26/19 16:55 Freq: Status: Active Protocol: Document 04/20/19 08:15 LRN (Rec: 04/20/19 09:01 LRN [id number]) Cardio Equipment Recumbent Elliptical (Arctrieval) Duration (Minutes) 7 Resistance 2 Other No use of LE's Therapeutic Exercises Supine Exercises Cervical Rotation Supine Exercise Name Actvie C/S Rotation Side bilateral Reps/Minutes 3' Shoulder PROM Supine Exercise Name Flex, ER, IR Side bilateral Reps/Minutes 4' Comments PROM R > L, R shoulder end- range flex. Lat pull down Supine Exercise Name Lat Pull Down Side bilateral Resistance Lev 2 TBand Reps/Minutes 10 x 3 Comments Full range Standing Exercises Rhomboid Doorway stretdchj Standing Exercise Name Focus on R upper Rhomboid Reps/Minutes 3 Comments Extra time taken for finding correct stretch location. Manual Therapy Treatment Soft Tissue Mobilization UT Body Location L UT Mobilization Type Sustained Pressure Trigger Point Release Intensity/Depth Moderate Body Position Supine Joint Mobilizations Cervicothoracic junction Joint C7-T5 Direction PA, R rot in T/S region Grade II Body Position Prone Reps/Duration 12' Manual Traction Cervical Details Manual C. traction Body Position Supine Reps/Duration 1' Comments Immediate relief of R shoulder pain. Manual Techniques MWM Scapula Type Assist scapula for depression and retraction & rotation with shoulder flex Body Location Scapula/Lat Dorsi - bilaterally, individually Body Position Supine Comments On Biodex and with supine PROM ex PT-OP-R Modalities Start: 03/26/19 16:55 Freq: Status: Active Protocol: Document 04/20/19 08:15 LRN (Rec: 04/20/19 12:06 LRN [id number]) Spinal Traction Traction Treatment Cervical Method Mechanical Static Patient Position Hooklying Force Applied (Pounds) 10 Duration of Treatment (Minutes) 8 Heating Pad Applied No Traction Treatment Comment Force variable starting 12# slowly decreased to 10# PT-OP-T Assessment and Plan Start: 03/26/19 16:55 Freq: Status: Active Protocol: Document 04/20/19 08:15 LRN (Rec: 04/20/19 09:01 LRN [id number]) Physical Therapy Assessment Progress Towards Goals Progress Comments #1. Progressing HEP. #2. End-range pain with reaching overhead. #3. No change with pain with sleeping. Pain 5/10. Assessment Summary Assessment Pt showed +response initially on Biodex to MWM for approximation of R GHJ and scapular stabilization. Pt had immediate shoulder pain relief with manual C.traction, but minimal effect with Delgado' C/S traction. Pt has good R shoulder mobility with R>L, but pain with use and end-range flexion. Supraspinatus involvement is likely, with + impringement. Strengthening of R shoulder scap stab. C/S involvement is variable. Physical Therapy Plan Frequency and Duration Frequency of Treatment 2x/Week Plan of Care Start Date 04/01/19 Plan of Care End Date 06/25/19 Next Visit Focus/Plan Next Note Type Treatment Note Next Visit Plan Assess response to Delgado C. traction. Cont scapular stabilization ex's and MWM for retraining of proper SHR. Cont manual mob for upper T/S to improve flex and ex to decrease curvature of the spine (apex L). Might try US if painful arc persists.
--- NOTE | 2019-04-22 17:10 | PT.OTN ---
Current Diagnoses Pain in right shoulder (04/22/19) Pain in left shoulder (04/22/19) Physical Therapy Treatment Note PT-OP-A Visit Information Start: 03/26/19 16:55 Freq: Status: Active Protocol: Document 04/22/19 08:15 LRN (Rec: 04/22/19 09:06 LRN [id number]) Out-Patient Physical Therapy Visit Information Visit Information Visit Type Treatment Note Visit Start Time 08:15 Visit Stop Time 09:06 Total Visit Minutes 51 Visit Number 6 Number of ROLL PLUGGER Visits 0 Evaluation Information Evaluation Date 04/01/19 Precautions Precautions Controlled HBP PT-OP-B Current Condition Start: 03/26/19 16:55 Freq: Status: Active Protocol: Document 04/01/19 13:41 LRN (Rec: 04/01/19 13:57 LRN [id number]) Current Condition History of Current Condition Onset Date 1 month ago History of Current Condition Was in [place]. Was doing a lot of swimming and fishing for 3 weeks and woke with vance shoulder pain that continued to worsen. Sometimes it is on the top of the shoulder and sometimes it radiates down to the mid lateral arms. He reports recently he is able to move around better and doesn' t hurt as bad when waking up. He is taking medications for his feet (anti-inflammatory) & Alleve for 4 months. Pt reports his shoulder pain is 6 /10 at its worse. Currently while at rest his pain is 2/10 . Resting doesn't change his pain. He denies numbness or tingling in his UE's. Treatment Goals Patient/Caregiver Goals Pt goals: 1) to learn what to do to properly care for his shoulders 2) be able to reach above shoulder height without pain 3) have less pain with waking in the morning (2/10 or less) Prior Functional Status Baseline Function- ADL's Independent Baseline Function- Mobility Independent Baseline Function- Other No shoulder pain, bilaterally, upon walking or using the arms. Current Functional Impairments (Reported) Functional Limitations- ADL's Unable to lift his arms without onset of shoulder pain . Pain starts ~ 30 or 90 deg' s flexion, primarily on the right. Functional Limitations- Mobility/Gait Lifting overhead Functional Limitations- Other Waking up from sleeping is painful. Personal Factors Other Personal Factors That May Effect Controlled HBP Therapy/Recovery PT-OP-C Subjective Start: 03/26/19 16:55 Freq: Status: Active Protocol: Document 04/22/19 08:15 LRN (Rec: 04/22/19 09:18 LRN [id number]) OP-PT Subjective Patient Comments Patient Comments States felt better for a little bit after therapy, same as with use of E-Stim. Prefers use of E-stim for comfort. Has been doing stretch at home (Rhomboid). PT-OP-F Manual Assessment Start: 03/26/19 16:55 Freq: Status: Active Protocol: Document 04/01/19 13:41 LRN (Rec: 04/01/19 18:29 LRN [id number]) Manual Assessments Soft Tissue Assessment Soft Tissue Mobility Assessment Tenderness of bilateral subacromial region. Joint Mobility Assessment Joint Mobility Assessment Decreased PA mobility of C7-T6 due to pain. Decreased rotation mobility of T3-T6 due to pain. PT-OP-H Neuro Start: 03/26/19 16:55 Freq: Status: Active Protocol: Document 04/01/19 13:41 LRN (Rec: 04/01/19 18:29 LRN [id number]) Sensation Evaluation Gross Sensation Gross Sensation WNL PT-OP-J Posture/Palpation/Skin Start: 03/26/19 16:55 Freq: Status: Active Protocol: Document 04/01/19 13:41 LRN (Rec: 04/01/19 18:31 LRN [id number]) Posture Evaluation Position Standing Head/C-Spine Posture Side Bent Right T-Spine Posture Flattened L-Spine Posture Decreased Lordosis Shoulder Posture (L) Rounded (R) Rounded Scapula Posture (R) Rotated Down (R) Depressed PT-OP-K Range of Motion Start: 03/26/19 16:55 Freq: Status: Active Protocol: Document 04/01/19 13:41 LRN (Rec: 04/01/19 18:29 LRN [id number]) Cervical Spine Range of Motion Cervical Spine Active Degrees Testing Position Sitting Flexion 50 Extension 52 Rotation Left 60 Rotation Right 60 Lateral Flexion Left 20 Lateral Flexion Right 27 ROM Limitations Soft Tissue Tightness Shoulder Goniometric Range of Motion Shoulder Measured in Degrees Right Active Testing Position Sitting: Flex & AB. Supine: ER & IR Flexion 168 Abduction 180 External Rotation at 90 degrees 90 Abduction Internal Rotation 50 Left Active Testing Position Sitting: Flex & AB. Supine: ER & IR Flexion 150 Abduction 180 External Rotation at 90 degrees 82 Abduction Internal Rotation 65 PT-OP-L Special Tests Start: 03/26/19 16:55 Freq: Status: Active Protocol: Document 04/01/19 13:41 LRN (Rec: 04/01/19 18:29 LRN [id number]) Special Tests Shoulder Special Tests Lombardi Luis F Impingement Test Results + Right, - Left Elevation Impingement Test Results + Bilterally PT-OP-M Strength Start: 03/26/19 16:55 Freq: Status: Active Protocol: Document 04/01/19 13:41 LRN (Rec: 04/01/19 18:29 LRN [id number]) Shoulder Strength Shoulder Manual Muscle Testing Right Reason Not Measured WFL Comments A little pain with testing of shoulder ER's. Left Reason Not Measured WFL PT-OP-Q Treatments Start: 03/26/19 16:55 Freq: Status: Active Protocol: Document 04/22/19 08:15 LRN (Rec: 04/22/19 09:06 LRN [id number]) Therapeutic Exercises Supine Exercises Scapular protraction Supine Exercise Name Scapular protraction/ retraction Side bilateral Equipment Used 2# Reps/Minutes 4' Comments Extra time for training Shoulder PROM Supine Exercise Name Flex, ER, IR Side bilateral Reps/Minutes 4' Comments PROM R > L, R shoulder end- range flex. Lat pull down Supine Exercise Name Lat Pull Down Side bilateral Resistance Lev 2 TBand Reps/Minutes 10 x 3 Comments Full range Sidelying Exercises AB Sidelying Exercise Name Shoulder AB Side right Reps/Minutes 10x3 Comments No pain Standing Exercises Scap protraction Standing Exercise Name Wall: Scap protract w/retract Side bilateral Reps/Minutes 4' Comments Extra time for training Rhomboid Doorway stretdchj Standing Exercise Name Focus on R upper Rhomboid (not in doorway) Reps/Minutes 3 Comments Extra time taken for finding correct stretch location. Manual Therapy Treatment Soft Tissue Mobilization Pec Stretch Body Location Pec Minor Mobilization Type Sustained Pressure Intensity/Depth Moderate Body Position Supine Joint Mobilizations Thoracic Joint T3-T5 Direction AP Body Position Sitting Reps/Duration 3'1 Manual Traction Cervical Details Manual C. traction Body Position Supine Reps/Duration 10' Comments Immediate relief of R shoulder pain except pain with movement of arm into flexion. Pain in Biceps region. Manual Techniques MWM Scapula Type Assist scapula for depression and retraction & rotation with shoulder flex Body Location Scapula/Lat Dorsi - bilaterally, individually Body Position Supine Comments On Biodex and with supine PROM ex Self-Care/Home Management Treatment Activities Self-Care/Home Management Activities I/S pt to do wall scap protract/retract and shoulder flex without pain. PT-OP-R Modalities Start: 03/26/19 16:55 Freq: Status: Active Protocol: Document 04/22/19 08:15 LRN (Rec: 04/22/19 09:06 LRN [id number]) Ultrasound Therapy Treatment R shoulder Treatment Duration (minutes) 8 Patient Position Supine Coupling Medium Ultrasound Gel Applicator Size (cm2) 5 Comments 4' Around R ACJ and biceps tendon @ 1.0 W/cm2, 3 mHz, 50% 4' @ R Supraspinatus @ 1.5 W/ cm@, 1 mHz, cont. PT-OP-T Assessment and Plan Start: 03/26/19 16:55 Freq: Status: Active Protocol: Document 04/22/19 08:15 LRN (Rec: 04/22/19 09:06 LRN [id number]) Physical Therapy Assessment Assessment Summary Assessment Pt demonstrates very weak serratus anterior strength with visible winging of the R scapula. With Cervical traction the pt had resolution of L shoulder pain, but no lasting affect on the R shoulder. Good tolerance to US today. Pt appears to have scap stabilizer dysfunction on the R in addition to possible cervical involvement. The pt 's availability for attending therapy is inconsistent; therefore progression is slow. Physical Therapy Plan Frequency and Duration Frequency of Treatment 2x/Week Plan of Care Start Date 04/01/19 Plan of Care End Date 06/25/19 Next Visit Focus/Plan Next Note Type Treatment Note Next Visit Plan Cont scapular stabilization ex 's and MWM for retraining of proper SHR. Cont manual mob for upper T/S to improve flex and ex to decrease curvature of the spine (apex L).
--- NOTE | 2019-05-25 11:45 | PT.OTN ---
Current Diagnoses Pain in right shoulder (05/25/19) Pain in left shoulder (05/25/19) Physical Therapy Treatment Note PT-OP-A Visit Information Start: 03/26/19 16:55 Freq: Status: Active Protocol: Document 05/25/19 11:35 SA (Rec: 05/25/19 11:45 SA [id number]) Out-Patient Physical Therapy Visit Information Visit Information Visit Type Treatment Note Visit Start Time 10:30 Visit Stop Time 11:11 Total Visit Minutes 41 Visit Number 7 Number of PROFILER HAND Visits 1 PT-OP-B Current Condition Start: 03/26/19 16:55 Freq: Status: Active Protocol: Document 04/01/19 13:41 LRN (Rec: 04/01/19 13:57 LRN [id number]) Current Condition History of Current Condition Onset Date 1 month ago History of Current Condition Was in [place]. Was doing a lot of swimming and fishing for 3 weeks and woke with vance shoulder pain that continued to worsen. Sometimes it is on the top of the shoulder and sometimes it radiates down to the mid lateral arms. He reports recently he is able to move around better and doesn' t hurt as bad when waking up. He is taking medications for his feet (anti-inflammatory) & Alleve for 4 months. Pt reports his shoulder pain is 6 /10 at its worse. Currently while at rest his pain is 2/10 . Resting doesn't change his pain. He denies numbness or tingling in his UE's. Treatment Goals Patient/Caregiver Goals Pt goals: 1) to learn what to do to properly care for his shoulders 2) be able to reach above shoulder height without pain 3) have less pain with waking in the morning (2/10 or less) Prior Functional Status Baseline Function- ADL's Independent Baseline Function- Mobility Independent Baseline Function- Other No shoulder pain, bilaterally, upon walking or using the arms. Current Functional Impairments (Reported) Functional Limitations- ADL's Unable to lift his arms without onset of shoulder pain . Pain starts ~ 30 or 90 deg' s flexion, primarily on the right. Functional Limitations- Mobility/Gait Lifting overhead Functional Limitations- Other Waking up from sleeping is painful. Personal Factors Other Personal Factors That May Effect Controlled HBP Therapy/Recovery PT-OP-C Subjective Start: 03/26/19 16:55 Freq: Status: Active Protocol: Document 05/25/19 11:35 SA (Rec: 05/25/19 11:45 SA [id number]) OP-PT Subjective Patient Comments Patient Comments Pt states he recieved a cortisone injection to R shoulder from Dr. Sanabria last week and his his shoulder pain is almost completly gone. PT-OP-F Manual Assessment Start: 03/26/19 16:55 Freq: Status: Active Protocol: Document 04/01/19 13:41 LRN (Rec: 04/01/19 18:29 LRN [id number]) Manual Assessments Soft Tissue Assessment Soft Tissue Mobility Assessment Tenderness of bilateral subacromial region. Joint Mobility Assessment Joint Mobility Assessment Decreased PA mobility of C7-T6 due to pain. Decreased rotation mobility of T3-T6 due to pain. PT-OP-H Neuro Start: 03/26/19 16:55 Freq: Status: Active Protocol: Document 04/01/19 13:41 LRN (Rec: 04/01/19 18:29 LRN [id number]) Sensation Evaluation Gross Sensation Gross Sensation WNL PT-OP-J Posture/Palpation/Skin Start: 03/26/19 16:55 Freq: Status: Active Protocol: Document 04/01/19 13:41 LRN (Rec: 04/01/19 18:31 LRN [id number]) Posture Evaluation Position Standing Head/C-Spine Posture Side Bent Right T-Spine Posture Flattened L-Spine Posture Decreased Lordosis Shoulder Posture (L) Rounded (R) Rounded Scapula Posture (R) Rotated Down (R) Depressed PT-OP-K Range of Motion Start: 03/26/19 16:55 Freq: Status: Active Protocol: Document 04/01/19 13:41 LRN (Rec: 04/01/19 18:29 LRN [id number]) Cervical Spine Range of Motion Cervical Spine Active Degrees Testing Position Sitting Flexion 50 Extension 52 Rotation Left 60 Rotation Right 60 Lateral Flexion Left 20 Lateral Flexion Right 27 ROM Limitations Soft Tissue Tightness Shoulder Goniometric Range of Motion Shoulder Right Active Testing Position Sitting: Flex & AB. Supine: ER & IR Flexion 168 Abduction 180 External Rotation at 90 degrees 90 Abduction Internal Rotation 50 Left Active Testing Position Sitting: Flex & AB. Supine: ER & IR Flexion 150 Abduction 180 External Rotation at 90 degrees 82 Abduction Internal Rotation 65 PT-OP-L Special Tests Start: 03/26/19 16:55 Freq: Status: Active Protocol: Document 04/01/19 13:41 LRN (Rec: 04/01/19 18:29 LRN [id number]) Special Tests Shoulder Special Tests Lombardi Luis F Impingement Test Results + Right, - Left Elevation Impingement Test Results + Bilterally PT-OP-M Strength Start: 03/26/19 16:55 Freq: Status: Active Protocol: Document 04/01/19 13:41 LRN (Rec: 04/01/19 18:29 LRN [id number]) Shoulder Strength Shoulder Manual Muscle Testing Right Reason Not Measured WFL Comments A little pain with testing of shoulder ER's. Left Reason Not Measured WFL PT-OP-Q Treatments Start: 03/26/19 16:55 Freq: Status: Active Protocol: Document 05/25/19 11:35 SA (Rec: 05/25/19 11:45 SA [id number]) Cardio Equipment Upper Body Ergometer (UBE) Duration (Minutes) 6 RPM 60 Other 3 fwd/3 back Therapeutic Exercises Supine Exercises Scapular protraction Supine Exercise Name Scapular protraction/ retraction Side bilateral Equipment Used 2# Reps/Minutes 4' Lat pull down Supine Exercise Name Lat Pull Down Side bilateral Resistance Lev 2 TBand Reps/Minutes 10 x 3 Comments Full range R shoulder IR Supine Exercise Name AROM Side right Reps/Minutes 1' Sidelying Exercises Shouler ER Side right Resistance 2# Reps/Minutes 2 x 10 AB Sidelying Exercise Name Shoulder AB Side right Equipment Used 1# Reps/Minutes 10x3 Comments No pain Standing Exercises Shoulder EXT Side bilateral Resistance 3# TB Reps/Minutes 2 x 10 Scapular Rows Side bilateral Resistance 3# TB Reps/Minutes 2 x 10 Rhomboid Doorway stretdchj Standing Exercise Name Focus on R upper Rhomboid (not in doorway) Reps/Minutes 3 Comments Extra time taken for finding correct stretch location. Manual Therapy Treatment Soft Tissue Mobilization Pec Stretch Body Location Pec Minor Mobilization Type Sustained Pressure Intensity/Depth Moderate Body Position Supine Manual Techniques AAROM to R shoulder Type Flex/ABD/IR/ER Body Position Supine Comments Gentle end range stretch, pain free MWM Scapula Type Assist scapula for depression and retraction & rotation with shoulder flex Body Location Scapula/Lat Dorsi - bilaterally, individually Body Position Supine Comments On Biodex and with supine PROM ex PT-OP-R Modalities Start: 03/26/19 16:55 Freq: Status: Active Protocol: Document 04/22/19 08:15 LRN (Rec: 04/22/19 09:06 LRN [id number]) Ultrasound Therapy Treatment R shoulder Treatment Duration (minutes) 8 Patient Position Supine Coupling Medium Ultrasound Gel Applicator Size (cm2) 5 Comments 4' Around R ACJ and biceps tendon @ 1.0 W/cm2, 3 mHz, 50% 4' @ R Supraspinatus @ 1.5 W/ cm@, 1 mHz, cont. PT-OP-T Assessment and Plan Start: 03/26/19 16:55 Freq: Status: Active Protocol: Document 05/25/19 11:35 SA (Rec: 05/25/19 11:45 SA [id number]) Physical Therapy Assessment Assessment Summary Assessment Pt with significant decrease in pain, tolerated exercise and stretching progressions well. Wants to d/c nest visit but encouraged pt to continue strength and ROM training while he is pain free, to follow up with primary therapist. Physical Therapy Plan Next Visit Focus/Plan Next Note Type Treatment Note Next Visit Plan Follow up with symptoms, progress strength and scapular stability and shoulder/ cervical ROM as tolerated.
--- NOTE | 2019-05-27 14:25 | PT.OTN ---
Current Diagnoses Pain in right shoulder (05/27/19) Pain in left shoulder (05/27/19) Physical Therapy Treatment Note PT-OP-A Visit Information Start: 03/26/19 16:55 Freq: Status: Active Protocol: Document 05/27/19 13:45 GGD (Rec: 05/27/19 14:25 GGD [id number]) Out-Patient Physical Therapy Visit Information Visit Information Visit Type Treatment Note Visit Start Time 13:00 Visit Stop Time 13:40 Total Visit Minutes 40 Visit Number 8 Number of HARPOONER Visits 2 PT-OP-B Current Condition Start: 03/26/19 16:55 Freq: Status: Active Protocol: Document 04/01/19 13:41 LRN (Rec: 04/01/19 13:57 LRN [id number]) Current Condition History of Current Condition Onset Date 1 month ago History of Current Condition Was in [place]. Was doing a lot of swimming and fishing for 3 weeks and woke with vance shoulder pain that continued to worsen. Sometimes it is on the top of the shoulder and sometimes it radiates down to the mid lateral arms. He reports recently he is able to move around better and doesn' t hurt as bad when waking up. He is taking medications for his feet (anti-inflammatory) & Alleve for 4 months. Pt reports his shoulder pain is 6 /10 at its worse. Currently while at rest his pain is 2/10 . Resting doesn't change his pain. He denies numbness or tingling in his UE's. Treatment Goals Patient/Caregiver Goals Pt goals: 1) to learn what to do to properly care for his shoulders 2) be able to reach above shoulder height without pain 3) have less pain with waking in the morning (2/10 or less) Prior Functional Status Baseline Function- ADL's Independent Baseline Function- Mobility Independent Baseline Function- Other No shoulder pain, bilaterally, upon walking or using the arms. Current Functional Impairments (Reported) Functional Limitations- ADL's Unable to lift his arms without onset of shoulder pain . Pain starts ~ 30 or 90 deg' s flexion, primarily on the right. Functional Limitations- Mobility/Gait Lifting overhead Functional Limitations- Other Waking up from sleeping is painful. Personal Factors Other Personal Factors That May Effect Controlled HBP Therapy/Recovery PT-OP-C Subjective Start: 03/26/19 16:55 Freq: Status: Active Protocol: Document 05/27/19 13:45 GGD (Rec: 05/27/19 14:25 GGD [id number]) OP-PT Subjective Patient Comments Patient Comments PT states he is still improving, hopes to return to gym for strengthening. PT-OP-F Manual Assessment Start: 03/26/19 16:55 Freq: Status: Active Protocol: Document 04/01/19 13:41 LRN (Rec: 04/01/19 18:29 LRN [id number]) Manual Assessments Soft Tissue Assessment Soft Tissue Mobility Assessment Tenderness of bilateral subacromial region. Joint Mobility Assessment Joint Mobility Assessment Decreased PA mobility of C7-T6 due to pain. Decreased rotation mobility of T3-T6 due to pain. PT-OP-H Neuro Start: 03/26/19 16:55 Freq: Status: Active Protocol: Document 04/01/19 13:41 LRN (Rec: 04/01/19 18:29 LRN [id number]) Sensation Evaluation Gross Sensation Gross Sensation WNL PT-OP-J Posture/Palpation/Skin Start: 03/26/19 16:55 Freq: Status: Active Protocol: Document 04/01/19 13:41 LRN (Rec: 04/01/19 18:31 LRN [id number]) Posture Evaluation Position Standing Head/C-Spine Posture Side Bent Right T-Spine Posture Flattened L-Spine Posture Decreased Lordosis Shoulder Posture (L) Rounded (R) Rounded Scapula Posture (R) Rotated Down (R) Depressed PT-OP-K Range of Motion Start: 03/26/19 16:55 Freq: Status: Active Protocol: Document 05/27/19 13:45 GGD (Rec: 05/27/19 14:25 GGD [id number]) Shoulder Goniometric Range of Motion Shoulder Right Active Testing Position Sitting: Flex & AB. Supine: ER & IR Flexion 175 Abduction 180 External Rotation at 90 degrees 90 Abduction Internal Rotation 65 PT-OP-L Special Tests Start: 03/26/19 16:55 Freq: Status: Active Protocol: Document 04/01/19 13:41 LRN (Rec: 04/01/19 18:29 LRN [id number]) Special Tests Shoulder Special Tests Lombardi Luis F Impingement Test Results + Right, - Left Elevation Impingement Test Results + Bilterally PT-OP-M Strength Start: 03/26/19 16:55 Freq: Status: Active Protocol: Document 05/27/19 13:45 GGD (Rec: 05/27/19 14:25 GGD [id number]) Shoulder Strength Shoulder Manual Muscle Testing Right Reason Not Measured WFL Comments A no pain with testing of shoulder ER's. PT-OP-Q Treatments Start: 03/26/19 16:55 Freq: Status: Active Protocol: Document 05/27/19 13:45 GGD (Rec: 05/27/19 14:25 GGD [id number]) Cardio Equipment Upper Body Ergometer (UBE) Duration (Minutes) 6 RPM 60 Other 3 fwd/3 back Therapeutic Exercises Supine Exercises Horiz Add Side bilateral Resistance 5# Reps/Minutes 20 SA punches Supine Exercise Name SA punches Side bilateral Resistance 5# Scapular protraction Supine Exercise Name Scapular protraction/ retraction Side bilateral Equipment Used 2# Reps/Minutes 4' Lat pull down Supine Exercise Name Lat Pull Down Side bilateral Resistance 3 plates Reps/Minutes 10 x 3 Comments Full range Sidelying Exercises Shouler ER Side right Resistance 5# Reps/Minutes 2 x 10 AB Sidelying Exercise Name Shoulder AB Side right Equipment Used 5# Reps/Minutes 10x3 Comments No pain Standing Exercises walk at rail. Standing Exercise Name walk hands on rail. Side bilateral Resistance Level 1 band Reps/Minutes [address] wall clocks Standing Exercise Name wall clocks Side bilateral Resistance Level 1 band wall push ups Standing Exercise Name wall push ups Side bilateral Reps/Minutes 10 Shoulder EXT Side bilateral Resistance 3# TB Reps/Minutes 2 x 10 Scapular Rows Side bilateral Resistance 3# TB Reps/Minutes 2 x 10 Rhomboid Door[address] stretdchj Standing Exercise Name Focus on R upper Rhomboid (not in doorway) Reps/Minutes 3 Comments Extra time taken for finding correct stretch location. PT-OP-R Modalities Start: 03/26/19 16:55 Freq: Status: Active Protocol: Document 04/22/19 08:15 LRN (Rec: 04/22/19 09:06 LRN [id number]) Ultrasound Therapy Treatment R shoulder Treatment Duration (minutes) 8 Patient Position Supine Coupling Medium Ultrasound Gel Applicator Size (cm2) 5 Comments 4' Around R ACJ and biceps tendon @ 1.0 W/cm2, 3 mHz, 50% 4' @ R Supraspinatus @ 1.5 W/ cm@, 1 mHz, cont. PT-OP-T Assessment and Plan Start: 03/26/19 16:55 Freq: Status: Active Protocol: Document 05/27/19 13:45 GGD (Rec: 05/27/19 14:25 GGD [id number]) Physical Therapy Assessment Goals Three Impairment Pain in shoulders upon waking. Detention Goal (LTG) Pt will be able to wake with minimal discomfort in the shoulders with pain no greater than 1/10. LTG Duration 06/25/19 Two Impairment Pt unable to reach overhead without pain. Detention Goal (LTG) Improve pt's shoulder mechanics for ability to reach overhead without pain. LTG Duration 06/25/19 One Impairment Pt lacks appropriate self care HEP. Program Medical Director Goal (LTG) Pt will be independent with a self care HEP. LTG Duration 06/25/19 Assessment Summary Assessment Pt able to progress strengthening. He improved with AROM and pain control. Pt to recheck in 1 week to asses HEP. Physical Therapy Plan Frequency and Duration Frequency of Treatment 2x/Week Plan of Care Start Date 04/01/19 Plan of Care End Date 06/25/19 Next Visit Focus/Plan Next Note Type Treatment Note Next Visit Plan Review HEP/ gym program, progress strengthening.
--- NOTE | 2019-06-08 12:13 | PT.OTN ---
Current Diagnoses Pain in right shoulder (06/08/19) Pain in left shoulder (06/08/19) Physical Therapy Treatment Note PT-OP-A Visit Information Start: 03/26/19 16:55 Freq: Status: Active Protocol: Document 06/08/19 11:13 LRN (Rec: 06/08/19 12:13 LRN [id number]) Out-Patient Physical Therapy Visit Information Visit Information Visit Type Treatment Note Visit Start Time 11:13 Visit Stop Time 11:43 Total Visit Minutes 30 Visit Number 9 Number of SERVICE OPERATIONS MANAGER Visits 0 Evaluation Information Evaluation Date 04/01/19 Precautions Precautions Controlled HBP PT-OP-B Current Condition Start: 03/26/19 16:55 Freq: Status: Active Protocol: Document 04/01/19 13:41 LRN (Rec: 04/01/19 13:57 LRN [id number]) Current Condition History of Current Condition Onset Date 1 month ago History of Current Condition Was in [place]. Was doing a lot of swimming and fishing for 3 weeks and woke with vance shoulder pain that continued to worsen. Sometimes it is on the top of the shoulder and sometimes it radiates down to the mid lateral arms. He reports recently he is able to move around better and doesn' t hurt as bad when waking up. He is taking medications for his feet (anti-inflammatory) & Alleve for 4 months. Pt reports his shoulder pain is 6 /10 at its worse. Currently while at rest his pain is 2/10 . Resting doesn't change his pain. He denies numbness or tingling in his UE's. Treatment Goals Patient/Caregiver Goals Pt goals: 1) to learn what to do to properly care for his shoulders 2) be able to reach above shoulder height without pain 3) have less pain with waking in the morning (2/10 or less) Prior Functional Status Baseline Function- ADL's Independent Baseline Function- Mobility Independent Baseline Function- Other No shoulder pain, bilaterally, upon walking or using the arms. Current Functional Impairments (Reported) Functional Limitations- ADL's Unable to lift his arms without onset of shoulder pain . Pain starts ~ 30 or 90 deg' s flexion, primarily on the right. Functional Limitations- Mobility/Gait Lifting overhead Functional Limitations- Other Waking up from sleeping is painful. Personal Factors Other Personal Factors That May Effect Controlled HBP Therapy/Recovery PT-OP-C Subjective Start: 03/26/19 16:55 Freq: Status: Active Protocol: Document 06/08/19 11:13 LRN (Rec: 06/08/19 12:13 LRN [id number]) OP-PT Subjective Patient Comments Patient Comments States he is much better since cortisone injectionS and he doesn't feel he needs to return to therapy. No pain with sleeping on shoulders and no pain with reaching overhead. Would like the handouts for his HEP. Patient Questionnaires Quick Dash- Upper Extremity Quick Dash UE Score 16 Quick Dash UE Impairment 1 to 19% Impaired (Score 1-19) OP-PT Pain Assessment Location R Shoulders Pain Location Details Subacromial R shoulder Intensity 0 PT-OP-F Manual Assessment Start: 03/26/19 16:55 Freq: Status: Active Protocol: Document 06/08/19 11:13 LRN (Rec: 06/08/19 12:13 LRN [id number]) Manual Assessments Soft Tissue Assessment Soft Tissue Mobility Assessment NO Tenderness of bilateral subacromial region. PT-OP-H Neuro Start: 03/26/19 16:55 Freq: Status: Active Protocol: Document 04/01/19 13:41 LRN (Rec: 04/01/19 18:29 LRN [id number]) Sensation Evaluation Gross Sensation Gross Sensation WNL PT-OP-J Posture/Palpation/Skin Start: 03/26/19 16:55 Freq: Status: Active Protocol: Document 04/01/19 13:41 LRN (Rec: 04/01/19 18:31 LRN [id number]) Posture Evaluation Position Standing Head/C-Spine Posture Side Bent Right T-Spine Posture Flattened L-Spine Posture Decreased Lordosis Shoulder Posture (L) Rounded (R) Rounded Scapula Posture (R) Rotated Down (R) Depressed PT-OP-K Range of Motion Start: 03/26/19 16:55 Freq: Status: Active Protocol: Document 06/08/19 11:13 LRN (Rec: 06/08/19 12:13 LRN [id number]) Shoulder Goniometric Range of Motion Shoulder Right Active Shoulder ROM WFL Yes Left Active Shoulder ROM WFL Yes Shoulder ROM Limitations Comments Bilateral shoulder AROM is equal. Pt has achieved his prior level of function. PT-OP-L Special Tests Start: 04/26/19 16:55 Freq: Status: Active Protocol: Document 06/08/19 11:13 LRN (Rec: 06/08/19 12:13 LRN [id number]) Special Tests Shoulder Special Tests Lombardi Luis F Impingement Comments Deferred. Pt is painfree in ROM and with shoulder MMT. Elevation Impingement Test Results Negative PT-OP-M Strength Start: 03/26/19 16:55 Freq: Status: Active Protocol: Document 06/08/19 11:13 LRN (Rec: 06/08/19 12:13 LRN [id number]) Shoulder Strength Shoulder Manual Muscle Testing Right Reason Not Measured WFL Comments No pain with testing of shoulder ER's. Left Reason Not Measured WFL Comments No pain with MMT PT-OP-Q Treatments Start: 03/26/19 16:55 Freq: Status: Active Protocol: Document 06/08/19 11:13 LRN (Rec: 06/08/19 12:13 LRN [id number]) Therapeutic Exercises Standing Exercises Shoulder IR Standing Exercise Name Shoulder IR Side bilateral Resistance Lev 2 T-Band Reps/Minutes 2 x 15 Shoulder ER Standing Exercise Name Shoulder ER Side bilateral Resistance Lev 2 T-Band Reps/Minutes 2 x 15 T-Band Lat pull down Standing Exercise Name T-Band Lat Pull down Side bilateral Resistance Lev 2 T-Band Reps/Minutes 2 x 15 Doorway Pec stretch Standing Exercise Name Doorway Pec stretch Comments Reviewed and recommended pt not stretch into discomfort. walk at rail. Standing Exercise Name walk hands on rail. Side bilateral Resistance Level 2 band Comments Reviewed wall clocks Comments Reviewed wall push ups Comments Reviewed Shoulder EXT Side bilateral Resistance 2# TB Reps/Minutes 2 x 15 Scapular Rows Side bilateral Resistance 2# TB Reps/Minutes 2 x 15 Self-Care/Home Management Treatment Education Patient Education Home Exercise Program Activities Self-Care/Home Management Activities Issued & reviewed HEP of T- Band shoulder ex's, 4 pgs of handouts for shoulder AROM, ARROM, proprioception ex's. PT-OP-R Modalities Start: 03/26/19 16:55 Freq: Status: Active Protocol: Document 04/22/19 08:15 LRN (Rec: 04/22/19 09:06 LRN [id number]) Ultrasound Therapy Treatment R shoulder Treatment Duration (minutes) 8 Patient Position Supine Coupling Medium Ultrasound Gel Applicator Size (cm2) 5 Comments 4' Around R ACJ and biceps tendon @ 1.0 W/cm2, 3 mHz, 50% 4' @ R Supraspinatus @ 1.5 W/ cm@, 1 mHz, cont. PT-OP-T Assessment and Plan Start: 03/26/19 16:55 Freq: Status: Active Protocol: Document 06/08/19 11:13 LRN (Rec: 06/08/19 12:13 LRN [id number]) Physical Therapy Assessment Goals Three Impairment Pain in shoulders upon waking. Outbound Sales Agent Goal (LTG) Pt will be able to wake with minimal discomfort in the shoulders with pain no greater than 1/10. LTG Duration 06/25/19 (06/08/19: GOAL MET) Two Impairment Pt unable to reach overhead without pain. Outbound Sales Agent Goal (LTG) Improve pt's shoulder mechanics for ability to reach overhead without pain. LTG Duration 06/25/19 (06/08/19: GOAL MET) One Impairment Pt lacks appropriate self care HEP. Assisted Goal (LTG) Pt will be independent with a self care HEP. LTG Duration 06/25/19 (06/08/19: GOAL MET) Assessment Summary Assessment Pt has achieved all goals and appears to have returned to his prior level of function. Pt is ready for discharge to his independent HEP. Physical Therapy Plan Discharge Physical Therapy Discharge Reasons Goals Met Discharge Comments Pt has no pain with shoulder strengthening ex's. Pt feels ready for discharge to an independent HEP.
== END 2019-06-08 13:05 | disposition home or self-care (01) ==
LOC: PHYS 11:15
PROVIDERS: PCP Family Medicine; Visit Provider Nurse Practitioner
DX: M25.511 Pain in right shoulder (principal); M25.512 Pain in left shoulder
CPT/HCPCS: 97012; 97014; 97035; 97110; 97140; 97161; 97535; G0283

== ENCOUNTER → 2019-11-29 09:49 | Outpatient (CLI) | payer OTHER, SELFPAY ==
--- NOTE | 2019-11-29 09:51 | DI.RAD.S_ITS ---
PROCEDURE: XR FOOT RT MIN 3V INDICATIONS: 2nd toe PIP point tender, r/o bony abnormality TECHNIQUE: 3 views of the foot were acquired. COMPARISON: [facility], , FOOT 3V RIGHT, 10/21/2017, 14:42. FINDINGS: Bones: No acute fracture identified. No dislocation. Tiny corticated ossicle at the dorsal aspect near the region of the third digit PIP joint seen on the lateral projection. This could represent remote avulsion fracture. Multifocal interphalangeal joint space narrowing and small osteophytes. Small calcaneal spurs. No suspicious bony lesions. Soft tissues: No tibiotalar joint effusion. Achilles tendon appears normal. Small linear foreign body adjacent to the first digit interphalangeal joint which appears unchanged compared to 10/21/2017. Vascular calcifications. IMPRESSION: No acute fracture or dislocation identified. A well-corticated ossicle at the dorsal aspect near the third digit PIP joint seen only on the lateral projection. This may represent remote avulsion fracture. Stable tiny linear foreign body adjacent to the first digit IP joint. Dictated by: Aleksandar Valiente M.D. on 11/29/2019 at 10:11 Approved by: Aleksandar Valiente M.D. on 11/29/2019 at 10:20
== END ==
PROVIDERS: PCP Family Medicine; Visit Provider Physician Assistant
DX: M79.674 Pain in right toe(s) (principal)
CPT/HCPCS: 73630

== ENCOUNTER → 2020-06-30 07:09 | Outpatient (CLI) | payer OTHER, SELFPAY ==
[2020-06-30 07:59] LABS: Add Manual Diff / Slide Review NO; Basophils Absolute Auto 0 /uL (0-100); Basophils Percent Auto 0.7 % (0-2); Eosinophils Absolute Auto 400 /uL (0-450); Eosinophils Percent Auto 6.2 % (2-4); Hemoglobin 12.9 g/dL (13.5-17.5); Lymphocytes Absolute Auto 2800 /uL (1100-4500); Lymphocytes Percent Auto 47.9 % (25-40); Mean Corpuscular Hemoglobin 31.1 PG (26-34); Mean Corpuscular Volume 91.6 fL (80-100); Monocytes Absolute Auto 300 /uL (0-900); Monocytes Percent Auto 5.8 % (3-14); Neutrophils Absolute Auto 2300 /uL (1500-7000); Neutrophils Percent Auto 39.4 % (50-75); Platelet Count 208 X10^3/uL (150-400); Red Blood Cell Count 4.14 X10^6/uL (4.5-5.9); Red Cell Distribution Width 13.2 % (11.6-14.8); White Blood Cell Count 5.8 X10^3/uL (4.5-11.0)
[2020-06-30 08:10] LABS: Alanine Aminotransferase 37 IU/L (<50); Albumin 4.3 g/dL (3.5-5.0); Albumin Globulin Ratio 1.9 (1.0-2.8); Alkaline Phosphatase 48 U/L (38-126); Aspartate Aminotransferase 33 IU/L (17-59); BUN Creatinine Ratio 18.7 (6-22); Bilirubin Total 0.6 mg/dL (0.2-1.3); Blood Urea Nitrogen 20 mg/dL (9-20); Calcium 9.5 mg/dL (8.4-10.2); Carbon Dioxide 25 mmol/L (22-32); Chloride 108 mmol/L (98-107); Cholesterol 143 mg/dL (140-199); Estimated Glomerular Filt Rate > 60.0 mL/min (>60); Globulin 2.3 g/dL (1.7-4.1); Glucose 93 mg/dL (80-110); HDL Cholesterol 31 mg/dL (40-60); HEMOLYSIS < 15 (0-50); LDL Cholesterol Calculated 83 mg/dL (<100); Potassium 4.3 mmol/L (3.4-5.1); Sodium 139 mmol/L (137-145); Total Protein 6.6 g/dL (6.3-8.2); Triglycerides 144 mg/dL (35-150)
[2020-06-30 08:41] LABS: Prostate Specific Antigen Scrn 4.79 ng/mL (0.1-4.0)
[2020-06-30 08:42] LABS: Thyroid Stimulating Hormone 1.67 uIU/mL (0.47-4.68)
== END ==
PROVIDERS: PCP Family Medicine; Referring Provider Family Medicine; Visit Provider Family Medicine
DX: R42 Dizziness and giddiness (principal); R97.20 Elevated prostate specific antigen [PSA]; Z12.5 Encounter for screening for malignant neoplasm of prostate
CPT/HCPCS: 36415; 80053; 80061; 84443; 85025; G0103

== ENCOUNTER → 2021-01-24 10:20 | Outpatient (CLI) | payer OTHER, SELFPAY ==
--- NOTE | 2021-01-24 10:22 | DI.RAD.S_ITS ---
PROCEDURE: XR ANKLE LT MIN 3V INDICATIONS: Left ankle pain TECHNIQUE: 3 views of the ankle were acquired. COMPARISON: None. FINDINGS: Bones: No fractures or dislocations. Ankle mortise is normally aligned. No suspicious bony lesions. Well-defined plantar and dorsal calcaneal enthesophytes are seen. Tiny calcification adjacent to tip of lateral malleolus is seen likely represent old healed avulsion injury. Soft tissues: No tibiotalar joint effusion. Achilles tendon appears normal. Vascular calcifications are noted around tibiotalar joint. IMPRESSION: No definite acute ankle fracture or dislocation. Possible old healed avulsion injury involving tip of lateral malleolus. Well-defined plantar and dorsal calcaneal enthesophytes. Dictated by: Maged Ochoa M.D. on 01/24/2021 at 10:41 Approved by: Maged Ochoa M.D. on 01/24/2021 at 10:42
--- NOTE | 2021-01-24 10:22 | DI.RAD.S_ITS ---
PROCEDURE: XR FOOT LT MIN 3V INDICATIONS: Left foot pain TECHNIQUE: 3 views of the foot were acquired. COMPARISON: [facility], CR, XR FOOT RT MIN 3V, 11/29/2019, 9:49. FINDINGS: Bones: No fractures or dislocations. Osteoarthritic changes are noted throughout midfoot and forefoot joints more prominent involving navicular cuneiform joints and 2nd TMT joint. No definite bony erosive changes or suspicious bony lesion. Well-defined plantar and dorsal calcaneal enthesophytes are seen. Soft tissues: No tibiotalar joint effusion. Achilles tendon appears normal. IMPRESSION: Midfoot and forefoot joint osteoarthritis. No fracture or dislocation. No definite bony erosion. Small plantar and dorsal calcaneal enthesophytes. Dictated by: Maged Ochoa M.D. on 01/24/2021 at 10:38 Approved by: Maged Ochoa M.D. on 01/24/2021 at 10:41
== END ==
PROVIDERS: PCP Family Medicine; Referring Provider Physician Assistant; Visit Provider Physician Assistant
DX: M25.572 Pain in left ankle and joints of left foot (principal); M79.672 Pain in left foot; M19.072 Primary osteoarthritis, left ankle and foot
CPT/HCPCS: 73610; 73630

== ENCOUNTER → 2021-07-16 07:17 | Outpatient (CLI) | payer OTHER, SELFPAY ==
[2021-07-16 08:11] LABS: Add Manual Diff / Slide Review NO; Basophils Absolute Auto 0 /uL (0-100); Basophils Percent Auto 0.8 % (0-2); Eosinophils Absolute Auto 400 /uL (0-450); Eosinophils Percent Auto 6.5 % (2-4); Hematocrit 39.1 % (41-53); Hemoglobin 12.9 g/dL (13.5-17.5); Lymphocytes Absolute Auto 2800 /uL (1100-4500); Lymphocytes Percent Auto 50.3 % (25-40); Mean Corpuscular HGB Conc 33.1 % (30-36); Mean Corpuscular Hemoglobin 30.5 PG (26-34); Mean Corpuscular Volume 92.4 fL (80-100); Monocytes Absolute Auto 300 /uL (0-900); Monocytes Percent Auto 5.3 % (3-14); Neutrophils Absolute Auto 2100 /uL (1500-7000); Neutrophils Percent Auto 37.1 % (50-75); Platelet Count 210 X10^3/uL (150-400); Red Blood Cell Count 4.24 X10^6/uL (4.5-5.9); Red Cell Distribution Width 13.2 % (11.6-14.8); White Blood Cell Count 5.6 X10^3/uL (4.5-11.0)
[2021-07-16 08:28] LABS: Alanine Aminotransferase 28 IU/L (<50); Albumin 4.1 g/dL (3.5-5.0); Albumin Globulin Ratio 1.5 (1.0-2.8); Alkaline Phosphatase 42 U/L (38-126); Aspartate Aminotransferase 25 IU/L (17-59); BUN Creatinine Ratio 21.1 (6-22); Bilirubin Total 0.4 mg/dL (0.2-1.3); Blood Urea Nitrogen 26 mg/dL (9-20); Calcium 9.1 mg/dL (8.4-10.2); Carbon Dioxide 22 mmol/L (22-32); Chloride 112 mmol/L (98-107); Cholesterol 191 mg/dL (140-199); Estimated Glomerular Filt Rate 57.5 mL/min (>60); Globulin 2.7 g/dL (1.7-4.1); Glucose 104 mg/dL (80-110); HDL Cholesterol 31 mg/dL (40-60); HEMOLYSIS < 15 (0-50); LDL Cholesterol Calculated 131 mg/dL (<100); Potassium 4.5 mmol/L (3.4-5.1); Sodium 141 mmol/L (137-145); Total Protein 6.8 g/dL (6.3-8.2); Triglycerides 145 mg/dL (35-150)
[2021-07-16 08:57] LABS: Prostate Specific Antigen 4.73 ng/mL (0.10-4.00)
== END ==
PROVIDERS: PCP Family Medicine; Referring Provider Family Medicine; Visit Provider Family Medicine
DX: E78.2 Mixed hyperlipidemia (principal); R97.20 Elevated prostate specific antigen [PSA]
CPT/HCPCS: 36415; 80053; 80061; 84153; 85025

== ENCOUNTER → 2021-07-24 09:37 | Outpatient (CLI) | payer OTHER, SELFPAY ==
[2021-07-24 11:49] LABS: HEMOLYSIS < 15 (0-50); Iron 81 ug/dL (49-181)
[2021-07-24 12:00] LABS: Percent Iron Saturation 29 % (20-50); Total Iron Binding Capacity 284 ug/dL (261-462); Transferrin 231 mg/dL (206-381)
[2021-07-24 12:04] LABS: Free T3, Triiodothyronine Free 3.71 pg/mL (2.77-5.27); Free T4, Direct Thyroxine 1.19 ng/dL (0.78-2.19)
[2021-07-24 12:17] LABS: Thyroid Stimulating Hormone 1.38 uIU/mL (0.47-4.68)
[2021-07-24 12:51] LABS: Folate 7.8 ng/mL (2.76-20.0); Vitamin B12 775 pg/mL (239-931)
== END ==
PROVIDERS: PCP Family Medicine; Referring Provider Family Medicine; Visit Provider Family Medicine
DX: D64.9 Anemia, unspecified (principal); R53.83 Other fatigue
CPT/HCPCS: 36415; 82607; 82746; 83540; 83550; 84439; 84443; 84481

== ENCOUNTER → 2022-09-05 07:26 | Outpatient (CLI) | payer OTHER, SELFPAY ==
[2022-09-05 09:30] LABS: Add Manual Diff / Slide Review NO; Basophils Absolute Auto 0 /uL (0-100); Basophils Percent Auto 0.7 % (0-2); Eosinophils Absolute Auto 300 /uL (0-450); Eosinophils Percent Auto 6.2 % (2-4); Hematocrit 37.1 % (41-53); Hemoglobin 12.4 g/dL (13.5-17.5); Lymphocytes Absolute Auto 3000 /uL (1100-4500); Lymphocytes Percent Auto 54.4 % (25-40); Mean Corpuscular HGB Conc 33.5 % (30-36); Mean Corpuscular Hemoglobin 30.3 PG (26-34); Mean Corpuscular Volume 90.3 fL (80-100); Monocytes Absolute Auto 300 /uL (0-900); Monocytes Percent Auto 6.1 % (3-14); Neutrophils Absolute Auto 1800 /uL (1500-7000); Neutrophils Percent Auto 32.6 % (50-75); Platelet Count 215 X10^3/uL (150-400); Red Blood Cell Count 4.11 X10^6/uL (4.5-5.9); Red Cell Distribution Width 13.5 % (11.6-14.8); White Blood Cell Count 5.5 X10^3/uL (4.5-11.0)
[2022-09-05 09:49] LABS: Alanine Aminotransferase 20 IU/L (<50); Albumin 3.9 g/dL (3.5-5.0); Albumin Globulin Ratio 1.6 (1.0-2.8); Alkaline Phosphatase 46 U/L (38-126); Aspartate Aminotransferase 25 IU/L (17-59); Bilirubin Total 0.5 mg/dL (0.2-1.3); Blood Urea Nitrogen 24 mg/dL (9-20); Calcium 8.9 mg/dL (8.4-10.2); Carbon Dioxide 21 mmol/L (22-32); Chloride 109 mmol/L (98-107); Cholesterol 124 mg/dL (140-199); Estimated Glomerular Filt Rate 59 mL/min (>60); Globulin 2.5 g/dL (1.7-4.1); Glucose 93 mg/dL (80-110); HDL Cholesterol 33 mg/dL (40-60); HEMOLYSIS < 15 (0-50); LDL Cholesterol Calculated 76 mg/dL (<100); Potassium 4.4 mmol/L (3.4-5.1); Sodium 141 mmol/L (137-145); Total Protein 6.4 g/dL (6.3-8.2); Triglycerides 77 mg/dL (35-150)
[2022-09-05 10:16] LABS: Prostate Specific Antigen 4.86 ng/mL (0.10-4.00)
== END ==
PROVIDERS: PCP Family Medicine; Referring Provider Family Medicine; Visit Provider Family Medicine
DX: E78.2 Mixed hyperlipidemia (principal); R97.20 Elevated prostate specific antigen [PSA]; D64.9 Anemia, unspecified; N18.31 Chronic kidney disease, stage 3a; R53.82 Chronic fatigue, unspecified
CPT/HCPCS: 36415; 80053; 80061; 84153; 85025

== ENCOUNTER → 2023-02-10 10:22 | Outpatient (CLI) | payer OTHER, SELFPAY ==
[2023-02-11 10:11] LABS: Fecal Immunochemical Test Negative (Negative)
== END ==
PROVIDERS: PCP Family Medicine; Referring Provider Family Medicine; Visit Provider Family Medicine
DX: Z12.11 Encounter for screening for malignant neoplasm of colon (principal)
CPT/HCPCS: 82274

== ENCOUNTER → 2023-10-31 07:45 | Outpatient (CLI) | payer OTHER, SELFPAY ==
[2023-10-31 09:16] LABS: Add Manual Diff / Slide Review NO; Basophils Absolute Auto 0 /uL (0-100); Basophils Percent Auto 0.5 % (0-2); Eosinophils Absolute Auto 500 /uL (0-450); Eosinophils Percent Auto 7.1 % (2-4); Hematocrit 43.6 % (41-53); Hemoglobin 14.7 g/dL (13.5-17.5); Lymphocytes Absolute Auto 3600 /uL (1100-4500); Lymphocytes Percent Auto 50.2 % (25-40); Mean Corpuscular HGB Conc 33.7 % (30-36); Mean Corpuscular Hemoglobin 30.7 PG (26-34); Mean Corpuscular Volume 91.1 fL (80-100); Monocytes Absolute Auto 400 /uL (0-900); Monocytes Percent Auto 5.9 % (3-14); Neutrophils Absolute Auto 2600 /uL (1500-7000); Neutrophils Percent Auto 36.3 % (50-75); Platelet Count 215 X10^3/uL (150-400); Red Blood Cell Count 4.78 X10^6/uL (4.5-5.9); White Blood Cell Count 7.1 X10^3/uL (4.5-11.0)
[2023-10-31 09:43] LABS: Alanine Aminotransferase 32 IU/L (<50); Albumin 4.3 g/dL (3.5-5.0); Albumin Globulin Ratio 1.6 (1.0-2.8); Alkaline Phosphatase 47 U/L (38-126); Aspartate Aminotransferase 30 IU/L (17-59); BUN Creatinine Ratio 24.1 (6-22); Bilirubin Total 0.6 mg/dL (0.2-1.3); Blood Urea Nitrogen 32 mg/dL (9-20); Calcium 9.5 mg/dL (8.4-10.2); Carbon Dioxide 23 mmol/L (22-32); Chloride 105 mmol/L (98-107); Cholesterol 164 mg/dL (140-199); Estimated Glomerular Filt Rate 55 mL/min (>60); Globulin 2.7 g/dL (1.7-4.1); Glucose 98 mg/dL (80-110); HDL Cholesterol 32 mg/dL (40-60); HEMOLYSIS < 15 (0-50); LDL Cholesterol Calculated 107 mg/dL (<100); Potassium 4.6 mmol/L (3.4-5.1); Sodium 138 mmol/L (137-145); Triglycerides 124 mg/dL (35-150)
[2023-10-31 10:14] LABS: Prostate Specific Antigen Scrn 6.46 ng/mL (0.1-4.0)
== END ==
PROVIDERS: PCP Family Medicine; Referring Provider Family Medicine; Visit Provider Family Medicine
DX: N18.31 Chronic kidney disease, stage 3a (principal); Z12.5 Encounter for screening for malignant neoplasm of prostate; I10 Essential (primary) hypertension; E78.2 Mixed hyperlipidemia; R97.20 Elevated prostate specific antigen [PSA]
CPT/HCPCS: 36415; 80053; 80061; 85025; G0103

== ENCOUNTER → 2023-11-03 10:04 | Outpatient (CLI) | payer OTHER, SELFPAY ==
--- NOTE | 2023-11-03 10:05 | DI.RAD.S_ITS ---
PROCEDURE: XR THORACIC SPINE 3V INDICATIONS: back pain TECHNIQUE: 3 views of the thoracic spine were acquired. COMPARISON: [facility], SPINE LUMB MIN 4VW, 07/09/2016, 15:27. [facility], MR, L-SPINE WITHOUT CONTRAST, 05/30/2016, 12:53. [facility], CR, L-SPINE 2-3 VIEWS, 03/04/2012, 11:23. [facility], CR, XR LUMBAR SPINE 2-3V, 11/03/2023, 10:21. FINDINGS: Bones: No fractures or dislocations. No suspicious bony lesions. 12 ribs are noted on the left and 13 ribs on the right. The vertebra with rudimentary right 13th rib is referred as L1. There is qwqv-sp-kvstjlas degenerative disease at T6-T7, T7-T8, T8-T9, T9-T10, T10-T11 and T11-T12 Soft tissues: No paravertebral stripe thickening. IMPRESSION: 1. Transitional anatomy as described. 2. Uozg-mm-fbwoiknr degenerative disease. Dictated by: Harjeet Carrion M.D. on 11/03/2023 at 16:20 Approved by: Harjeet Carrion M.D. on 11/03/2023 at 16:23
--- NOTE | 2023-11-03 10:05 | DI.RAD.S_ITS ---
PROCEDURE: XR LUMBAR SPINE 2-3V INDICATIONS: back pain TECHNIQUE: 3 views of the lumbar spine were acquired. COMPARISON: [facility], , L-SPINE 2-3 VIEWS, 03/04/2012, 11:23. [facility], CR, XR THORACIC SPINE 3V, 11/03/2023, 10:21. FINDINGS: Bones: Based on the comparison thoracic spine x-ray, 12 ribs are present on the left and 13 ribs are present on the right. The vertebra with rudimentary right rib is referred as L1. There is prominent S1-S2 disc. There is grade 1 anterolisthesis of L5 on S1. No vertebral body compression fractures. No suspicious bony lesions. Diffuse degenerative disc disease, severe at L5-S1, moderate at L1-L2, L2-L3 and L3-L4, mild at L4-L5. Moderate facet arthropathy at L3-L4, L4-L5 and L5-S1. Enlargement of the spinous prostheses in lumbar spine with pseudoarticulation at L4-L5 and L5-S1, consistent with Baastrup's disease. Soft tissues: Overlying bowel gas pattern is normal. No suspicious soft tissue calcifications. IMPRESSION: 1. Transitional anatomy as described. 2. 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 Dictated by: Harjeet Carrion M.D. on 11/03/2023 at 16:11 Approved by: Harjeet Carrion M.D. on 11/03/2023 at 16:19
== END ==
PROVIDERS: PCP Family Medicine; Referring Provider Family Medicine; Visit Provider Family Medicine
DX: M43.17 Spondylolisthesis, lumbosacral region (principal); M51.37 Other intervertebral disc degeneration, lumbosacral region; M51.36 Other intervertebral disc degeneration, lumbar region; M47.816 Spondylosis without myelopathy or radiculopathy, lumbar region; M47.817 Spondylosis without myelopathy or radiculopathy, lumbosacral region; M48.27 Kissing spine, lumbosacral region; M47.814 Spondylosis without myelopathy or radiculopathy, thoracic region; M54.50 Low back pain, unspecified; G89.29 Other chronic pain
CPT/HCPCS: 72072; 72100

== ENCOUNTER → 2023-11-19 10:59 | Outpatient (CLI) | payer OTHER, SELFPAY ==
[2023-11-19 16:00] LABS: Creatinine Urine Random 102.6 mg/dL
[2023-11-19 16:03] LABS: Microalbumi Creatinin Ratio Ur 9.7 ug/mg CR (<30)
== END ==
PROVIDERS: PCP Family Medicine; Visit Provider Family Medicine
DX: I10 Essential (primary) hypertension (principal)
CPT/HCPCS: 82043; 82570

== ENCOUNTER → 2023-12-05 11:42 | Outpatient (CLI) | payer OTHER, SELFPAY ==
--- NOTE | 2023-12-05 11:44 | DI.MRI.S_ITS ---
PROCEDURE: MR LUMBAR SPINE WO CON INDICATIONS: Chronic Back Pain TECHNIQUE: Noncontrast sagittal T1 spin echo and T2 fast echo, sagittal STIR, and T2 fast spin echo through the lumbar spine. In cases with scoliosis, additional coronal T2 fast spin echo may be performed. COMPARISON: [facility], CR, XR LUMBAR SPINE 2-3V, 11/03/2023, 10:21. [facility], MR, L-SPINE WITHOUT CONTRAST, 05/30/2016, 12:53. FINDINGS: Image quality: Excellent. Alignment and Curvature: Trace retrolisthesis of L1 on L2 and L2 on L3. 3 mm anterolisthesis of L5 on S1. Bone Marrow: Marrow is of normal overall signal. No acute vertebral body compression fractures. Spinal Cord: Conus medullaris terminates at the L1-L2 level. Visualized cord demonstrates normal signal and size. Paraspinous Soft Tissues: No paravertebral masses. T12-L1: Normal appearance. L1-L2: Trace retrolisthesis of L1 on L2. Mild facet hypertrophy. No canal stenosis or significant foraminal stenosis. L2-L3: Severe chronic disc height loss, increased compared to the previous study. Mild posterior disc post osteophyte. Facet hypertrophy. No significant canal stenosis. Mild bilateral foraminal stenosis. L3-L4: Interval increase in disc height loss. Diffuse posterior disc post osteophyte, as before. Facet and ligament hypertrophy. Yges-qt-zvanfstk canal stenosis. Odvt-yz-plntdidc bilateral foraminal stenosis. L4-L5: Mild interval progression. Disc bulge. Facet and ligament hypertrophy. Epidural lipomatosis. Moderate canal stenosis. Mild bilateral foraminal stenosis. L5-S1: There was previously mild retrolisthesis of L5 on S1. There is now increased disc height loss and mild anterolisthesis of L5 on S1. There is exuberant facet hypertrophy. There is moderate to severe canal stenosis. There is severe right foraminal narrowing and moderate to severe left foraminal narrowing with bilateral foraminal L5 nerve root impingement. IMPRESSION: 1. Significant interval progression at L5-S1. There is exuberant facet hypertrophy. There is severe canal stenosis, severe right foraminal narrowing, and moderate to severe left foraminal narrowing. 2. Multilevel underlying facet arthropathy. 3. Canal stenosis is mild to moderate at L3-L4 and moderate at L4-L5 and severe at L5-S1. 4. Multilevel foraminal narrowing as described above. Dictated by: Nasir Rosales M.D. on 12/05/2023 at 17:50 Approved by: Nasir Rosales M.D. on 12/05/2023 at 18:00
== END ==
LOC: MRI 11:43
PROVIDERS: PCP Family Medicine; Referring Provider Family Medicine; Visit Provider Family Medicine
DX: M48.26 Kissing spine, lumbar region (principal); M47.816 Spondylosis without myelopathy or radiculopathy, lumbar region; M47.817 Spondylosis without myelopathy or radiculopathy, lumbosacral region; M48.061 Spinal stenosis, lumbar region without neurogenic claudication; M48.07 Spinal stenosis, lumbosacral region
CPT/HCPCS: 72148

== ENCOUNTER → 2024-06-23 13:37 | Outpatient (CLI) | payer OTHER, SELFPAY ==
--- NOTE | 2024-06-23 14:00 | DI.MRI.S_ITS ---
PROCEDURE: MR PELVIC PROSTATE PROTOCOL INDICATIONS: Elevated PSA TECHNIQUE: Coronal HASTE, axial T1 FSE with fat saturation, 3-plane nonbreath-hold T2 FSE. After the administration of contrast, dynamic axial, delayed axial and coronal VIBE or 2-D FLASH with fat saturation through the pelvis. Diffusion weighted imaging and ADC was performed. COMPARISON: None. FINDINGS: Image quality: Diffusion weighted and dynamic contrast enhanced images are diagnostic. Prostate: Gland size is 5.3 x 6.3 x 5.6 cm; ellipsoid gland volume is 97 mL. PSA density of 0.065. Hypertrophy of the transition zone with encapsulated and partially encapsulated nodules. Genitourinary system: Trabeculated bladder wall. Distal ureters are non distended. Bowel and peritoneum: No pathologic free pelvic fluid. Inferior colon and small bowel loops are normal in caliber. Colonic diverticulosis without evidence of diverticulitis. Nodes and vessels: No pelvic or inguinal adenopathy by size criteria. Iliac vessels are normal in caliber. Soft tissues: No inguinal hernias. Bones: Marrow demonstrates normal overall signal, without lesions to suggest metastases. IMPRESSION: No PI-RADS 3 through 5 lesions. No pelvic lymphadenopathy by size criteria. No aggressive osseous abnormality. Dictated by: Paulino Gamino M.D. on 06/24/2024 at 11:28 Approved by: Paulino Gamino M.D. on 06/24/2024 at 11:32
== END ==
PROVIDERS: PCP Family Medicine; Referring Provider Urology; Visit Provider Urology
DX: N32.89 Other specified disorders of bladder (principal); R97.20 Elevated prostate specific antigen [PSA]
CPT/HCPCS: 72197; A9579

== ENCOUNTER 2024-07-14 08:26 | Outpatient (CLI) | payer OTHER, SELFPAY ==
[2024-07-14 08:35] VITALS: BP 172/79; PULSE 58; RESP 16; TEMP 36.3; O2SAT 98
[2024-07-14 08:55] VITALS: BP 166/78; PULSE 58; RESP 14; O2SAT 100
[2024-07-14 09:00] VITALS: BP 169/74; PULSE 58; RESP 14; O2SAT 100
--- NOTE | 2024-07-14 09:00 | DI.RAD.S_ITS ---
PROCEDURE: PAIN L INTERLAMINAR/CAUDAL INJ INDICATIONS: SPONDYLOSIS COMPARISON: None. FINDINGS: Fluoroscopic spot filming was performed to verify placement of spinal needles at the L4-5 level(s), as labeled on the films. Appropriate location(s) of the needle tip(s) was confirmed by injection of iodinated contrast. IMPRESSION: Fluoro guidance was provided intraoperatively for L4-5 interlaminar BRET performed by ordering physician. Dictated by: Maged Ochoa M.D. on 07/14/2024 at 16:26 Approved by: Maged Ochoa M.D. on 07/14/2024 at 16:26
[2024-07-14] MEDS: iopamidoL 15 ML VIAL 3 ML INJ (09:01)
[2024-07-14] MEDS: LIDOCAINE 1% (PF) 5 ML INJ (09:01)
[2024-07-14] MEDS: DEXAMETHASONE 10 MG/ML VIAL INJ (09:01)
[2024-07-14 09:05] VITALS: BP 153/75; PULSE 57; RESP 14; O2SAT 100
[2024-07-14 09:10] VITALS: BP 173/77; PULSE 66; RESP 18; O2SAT 100
--- NOTE | 2024-07-14 09:46 | P.PCN_ITS ---
Date/Time/Diagnoses Date of procedure: 07/14/24 Time of procedure: 09:00 Procedure Notes Physician: Domingo Lopez Total Fluoroscopy time (seconds): 14 Total sedation minutes: 0 Procedure in detail & Post-procedure care: L4-5 Interlaminar Epidural Steroid Injection Indications: Philippe is presenting for treatment of lumbar radiculopathy with low back and leg pain. Preoperative diagnosis: Lumbar radiculopathy Postoperative diagnosis: Same Focused Examination: Ax3 Mood and affect are normal Vital Signs: VSS Consent: Following review of allergies and potential side effects/complications, including, but not necessarily limited to, infection, allergic reaction, local tissue breakdown, stroke, temporary or permanent nerve injury, paralysis, and possible , the patient indicated that they understood and agreed to proceed.? An informed consent document was signed by the patient, witnessed by a nurse and placed in the patient's chart.? Additionally, other treatment options including medications and physical therapy were reviewed with the patient. All questions were answered. Site was then marked. Anesthesia: Local Position: Prone Monitoring: NIBP, Pulse oximetry, 3 lead EKG Needle used: 18 G 3.5? Tuohy Contrast: Isovue 300M, 1 mL Injectate: Dexamethasone 10 mg with 1% lidocaine 2 mL Technique: The skin was prepped with chloraprep and then draped in a sterile fashion. Time out was performed as per protocol. Oxygen applied via NC. Skin and subcutaneous structures of the needle entry site was then infiltrated with 3 mL of lidocaine 1%. Under AP, lateral and contralateral oblique fluoroscopic control, the Tuohy needle was guided into the L4-5 epidural space. The space was accessed with loss of resistance technique. Isovue 300M was then injected and the spread was consistent with the epidural space. There was no evidence for intravascular or intrathecal uptake. After negative aspiration, 1 mL of the above-mentioned injectate was then slowly administered and the needle withdrawn to the interspinous space. In this location, the remaining 2 mL of steroid and local anesthetic mixture was administered. The patient expressed no unusual discomfort or paresthesias during the injection. Band-Aids applied to injection sites. EBL: less than 1 ml Complications: None Post Procedure: Patient was taken to the recovery and monitored. The patient was provided a Pain Log to continue to record the patient's response to the target- specific procedure prior to the patient's follow-up visit with the referring physician. Patient was stable upon discharge. Detailed post procedure instructions were provided. Patient was asked to call in the event of worsening pain, fever, weakness, numbness or bladder or bowel incontinence.
== END 2024-07-14 09:19 | disposition home or self-care (01) ==
LOC: RAD 08:26
PROVIDERS: PCP Family Medicine; Referring Provider Anesthesiology; Visit Provider Anesthesiology
DX: M54.16 Radiculopathy, lumbar region (principal)
CPT/HCPCS: 62323; J1100

== ENCOUNTER 2024-08-12 23:01 | Emergency (ER) | payer OTHER, SELFPAY ==
[2024-08-12 23:10] VITALS: BP 112/55; PULSE 111; RESP 18; TEMP 38.2; O2SAT 97; BMI 28.5
[2024-08-12 23:12] VITALS: PULSE 116; O2SAT 96
--- NOTE | 2024-08-12 23:19 | ED.GENADULT ---
HPI - General Adult <Tere Dickerson DO - Last Filed: 08/14/24 02:50> General Chief complaint: Fever Stated complaint: possible seizure Time Seen by Provider: 08/12/24 23:12 Source: patient, RN notes reviewed and old records reviewed Mode of arrival: Family Vehicle Limitations: no limitations History of Present Illness HPI narrative: 79-year-old male with history of BPH, hypertension, dyslipidemia who presents with complaint of fevers, cough, rigors for the past 48 hours. states he had an episode yesterday where he was shaking, alert conversant but a little bit confused on and off. She states same thing happened this evening. He has had fevers on and off for the past 48 hours. He has had nasal congestion with a cough. He states it hurts to cough. He denies any chest pain. Denies any abdominal pain. Has not had any nausea or vomiting. Denies any flank pain. States he has myalgias and some back pain. Denies any rash or skin changes. No new dysuria urgency or frequency. Denies any diarrhea or constipation. Patient has not had any Tylenol or other ibuprofen reported by family. States no daily medications but did take something for his state recently. Denies any recent surgeries. Former smoker, no regular alcohol, no recreational drugs. Dr. Dougherty is his primary care physician. His accompanied the patient today. Related Data Previous Rx's Medication Instructions Recorded lisinopril 30 mg tablet 30 mg PO BID #180 tabs 03/16/24 Allergies Allergy/AdvReac Type Severity Reaction Status Date / Time No Known Drug Allergies Allergy Unknown Verified 08/03/24 08:07 [NO KNOWN DRUG ALLERGIES] Review of Systems <Tere Dickerson DO - Last Filed: 08/14/24 02:50> Review of Systems ROS Unobtainable: All systems reviewed & are unremarkable except as noted in HPI and below Patient History <Tere Dickerson DO - Last Filed: 08/14/24 02:50> Medical History Secondhand smoke exposure Benign prostatic hyperplasia with lower urinary tract symptoms Lumbar radiculopathy Strain of muscle, fascia and tendon of lower back, initial encounter Lumbar degenerative disc disease Lumbar spinal stenosis Lumbar spondylosis [place]rup disease of lumbar spine H/O agent [place] exposure Chronic bilateral low back pain without sciatica Chronic thoracic back pain Hearing loss Excessive daytime sleepiness CKD (chronic kidney disease) stage 3, GFR 30-59 ml/min HTN (hypertension) Giant comedone Fatigue Normocytic anemia, not due to blood loss Tinnitus, bilateral Chicken pox (1953) Hearing loss (1995) Measles Mumps (1956) Shoulder pain (05/2014) Vertigo (1997) Elevated PSA (2011) Surgical History History of prostate biopsy H/O: knee surgery No history of previous surgery (01/2017) Family History Mother Cancer Father MVA (motor vehicle accident) Other Hyperlipidemia Hypertension Social History marital status: occupational status: previously employed leisure activities: exercise Smoking Status: Former smoker (quit 1975) frequency: 3-4 times per week duration: 45-60 minutes/day Smoking Status: Former smoker (quit 1975) Exam <Tere Dickerson DO - Last Filed: 08/14/24 02:50> Narrative Exam Narrative: GEN: well nourished, well appearing male, alert and oriented x x3, patient does occasionally stumble over history,, patient appears to be in mild distress. Patient feels warm to the touch. HEENT: Atraumatic, pupils are equal round reactive to light, extraocular movements are intact, nares are clear, TMs are clear with no fluid, there is no conjunctival pallor. Throat is clear without any exudates, erythema, tonsillar enlargement or uvular deviation HEART: Slightly tachycardic but regular rate and rhythm without murmur, clicks, rubs. No carotid bruits, pulses are equal in upper and lower extremities LUNGS:Lungs clear to auscultation, no wheezes, rales, crackles, chest moves symmetrically ABD:bowel sounds normal, soft, non-tender, no guarding, rebound, rigidity, no masses noted, no hepatosplenomegaly :No CVA tenderness MSCL: Non-tender, no muscle atrophy, muscles strength 5/5 upper and lower extremities, full range of motion. NEURO:CN 2-12 intact, sensation normal. SKIN: No rash, erythema or other skin changes noted. Initial Vital Signs Initial Vital Signs: Vital Signs Temperature 100.7 F H 08/12/24 23:10 Pulse Rate 111 H 08/12/24 23:10 Respiratory Rate 18 08/12/24 23:10 Blood Pressure 112/55 L 08/12/24 23:10 Pulse Oximetry 97 08/12/24 23:10 Oxygen Delivery Method Room Air 08/12/24 23:10 <Misa Nichols DO - Last Filed: 08/14/24 07:41> Initial Vital Signs Initial Vital Signs: Vital Signs Temperature 100.7 F H 08/12/24 23:10 Pulse Rate 111 H 08/12/24 23:10 Respiratory Rate 18 08/12/24 23:10 Blood Pressure 112/55 L 08/12/24 23:10 Pulse Oximetry 97 08/12/24 23:10 Oxygen Delivery Method Room Air 08/12/24 23:10 Course <Tere Dickerson, - Last Filed: 08/14/24 02:50> Orders Ordered: Discontinued Medications Acetaminophen (Acetaminophen 325 Mg Tablet) 975 mg PO NOW ONE Stop: 08/12/24 23:28 Last Admin: 08/12/24 23:54 Dose: 975 mg Documented By: AB Sodium Chloride (Normal Saline 0.9%) 1,000 mls @ 1,000 mls/hr IV BOLUS ONE Stop: 08/13/24 00:25 Last Infusion: 08/13/24 00:52 Dose: Infused Documented By: Admin: 08/12/24 23:54 Dose: 1,000 mls/hr Documented By: AB Sodium Chloride (Normal Saline 0.9%) 2,259 mls @ 753 mls/hr 30 ml/kg infuse over 3 hr (2259 ml) IV NOW ONE Stop: 08/13/24 03:07 Last Infusion: 08/13/24 02:56 Dose: Infused Documented By: Admin: 08/13/24 00:21 Dose: 753 mls/hr Documented By: AB Piperacillin Sod/Tazobactam (Sod 4.5 gm/ Sodium Chloride) 100 mls @ 200 mls/hr IV NOW ONE Stop: 08/13/24 00:09 Last Infusion: 08/13/24 01:25 Dose: Infused Documented By: Admin: 08/13/24 00:20 Dose: 200 mls/hr Documented By: Sodium Chloride (Normal Saline 0.9%) 1,000 mls @ 150 mls/hr IV CONT [facility] Last Infusion: 08/13/24 09:45 Dose: Infused Documented By: Admin: 08/13/24 03:00 Dose: 150 mls/hr Documented By: Piperacillin Sod/Tazobactam (Sod 3.375 gm/ Sodium Chloride) 100 mls @ 25 mls/hr IV Q8H [facility] Last Admin: 08/13/24 21:47 Dose: 25 mls/hr Documented By: Infusion: 08/13/24 19:45 Dose: Infused Documented By: Admin: 08/13/24 16:01 Dose: 25 mls/hr Documented By: Infusion: 08/13/24 12:55 Dose: Infused Documented By: Infusion: 08/13/24 09:50 Dose: 0 mls/hr Documented By: Admin: 08/13/24 07:47 Dose: 25 mls/hr Documented By: FLOYD Ondansetron HCl (Ondansetron 4 Mg/2 Ml Inj) 4 mg IV NOW PRN PRN Reason: Nausea And Vomiting Ondansetron HCl (Ondansetron 4 Mg Odt) 4 mg SL NOW PRN PRN Reason: Nausea And Vomiting Vital Signs Vital signs: Vital Signs - 8 hr 08/13/24 19:00 08/13/24 19:00 08/13/24 19:30 Temperature Pulse Rate 59 L 57 L Respiratory Rate 22 19 Blood Pressure 120/62 Pulse Oximetry 98 97 08/13/24 20:00 08/13/24 20:00 08/13/24 20:30 Temperature Pulse Rate 56 L 61 Respiratory Rate 21 21 Blood Pressure 135/59 L Pulse Oximetry 98 98 08/13/24 21:00 08/13/24 21:00 08/13/24 21:18 Temperature 98.3 F Pulse Rate 57 L Respiratory Rate 19 Blood Pressure 129/66 Pulse Oximetry 97 <Misa Nichols, DO - Last Filed: 08/14/24 07:41> Orders Ordered: Discontinued Medications Acetaminophen (Acetaminophen 325 Mg Tablet) 975 mg PO NOW ONE Stop: 08/12/24 23:28 Last Admin: 08/12/24 23:54 Dose: 975 mg Documented By: Sodium Chloride (Normal Saline 0.9%) 1,000 mls @ 1,000 mls/hr IV BOLUS ONE Stop: 08/13/24 00:25 Last Infusion: 08/13/24 00:52 Dose: Infused Documented By: Admin: 08/12/24 23:54 Dose: 1,000 mls/hr Documented By: Sodium Chloride (Normal Saline 0.9%) 2,259 mls @ 753 mls/hr 30 ml/kg infuse over 3 hr (2259 ml) IV NOW ONE Stop: 08/13/24 03:07 Last Infusion: 08/13/24 02:56 Dose: Infused Documented By: Admin: 08/13/24 00:21 Dose: 753 mls/hr Documented By: Piperacillin Sod/Tazobactam (Sod 4.5 gm/ Sodium Chloride) 100 mls @ 200 mls/hr IV NOW ONE Stop: 08/13/24 00:09 Last Infusion: 08/13/24 01:25 Dose: Infused Documented By: Admin: 08/13/24 00:20 Dose: 200 mls/hr Documented By: Sodium Chloride (Normal Saline 0.9%) 1,000 mls @ 150 mls/hr IV CONT [facility] Last Infusion: 08/13/24 09:45 Dose: Infused Documented By: Admin: 08/13/24 03:00 Dose: 150 mls/hr Documented By: Piperacillin Sod/Tazobactam (Sod 3.375 gm/ Sodium Chloride) 100 mls @ 25 mls/hr IV Q8H [facility] Last Admin: 08/13/24 21:47 Dose: 25 mls/hr Documented By: Infusion: 08/13/24 19:45 Dose: Infused Documented By: Admin: 08/13/24 16:01 Dose: 25 mls/hr Documented By: Infusion: 08/13/24 12:55 Dose: Infused Documented By: Infusion: 08/13/24 09:50 Dose: 0 mls/hr Documented By: Admin: 08/13/24 07:47 Dose: 25 mls/hr Documented By: FLOYD Ondansetron HCl (Ondansetron 4 Mg/2 Ml Inj) 4 mg IV NOW PRN PRN Reason: Nausea And Vomiting Ondansetron HCl (Ondansetron 4 Mg Odt) 4 mg SL NOW PRN PRN Reason: Nausea And Vomiting Vital Signs Vital signs: Vital Signs - 8 hr 08/13/24 19:00 08/13/24 19:00 08/13/24 19:30 Temperature Pulse Rate 59 L 57 L Respiratory Rate 22 19 Blood Pressure 120/62 Pulse Oximetry 98 97 08/13/24 20:00 08/13/24 20:00 08/13/24 20:30 Temperature Pulse Rate 56 L 61 Respiratory Rate 21 21 Blood Pressure 135/59 L Pulse Oximetry 98 98 08/13/24 21:00 08/13/24 21:00 08/13/24 21:18 Temperature 98.3 F Pulse Rate 57 L Respiratory Rate 19 Blood Pressure 129/66 Pulse Oximetry 97 Medical Decision Making <Tere Dickerson, DO - Last Filed: 08/14/24 02:50> Lab Data 08/12/24 23:36 08/13/24 12:48 Labs: Lab Results 08/12/24 08/12/24 08/12/24 Range/Units 23:18 23:36 23:53 WBC 4.5 (4.5-11.0) X10^3/uL RBC 3.91 L (4.5-5.9) X10^6/uL Hgb 12.1 L (13.5-17.5) g/dL Hct 35.9 L (41-53) % MCV 91.7 (80-100) fL MCH 30.9 (26-34) PG MCHC 33.7 (30-36) % RDW 13.6 (11.6-14.8) % Plt Count 181 (150-400) X10^3/uL Neut % (Auto) 85.4 H (50-75) % Lymph % (Auto) 11.4 L (25-40) % [place] % (Auto) 1.7 L (3-14) % Eos % (Auto) 1.0 L (2-4) % Baso % (Auto) 0.5 (0-2) % Neut # (Auto) 3800 (4852-3278) /uL Lymph # (Auto) 500 L (9845-2630) /uL [place] # (Auto) 100 (0-900) /uL Eos # (Auto) 0 (0-450) /uL Baso # (Auto) 0 (0-100) /uL PT 17.1 H (9.4-12.5) SECONDS INR 1.5 H (0.9-1.3) APTT 28 (25.1-36.5) SECONDS Sodium 134 L (137-145) mmol/L Potassium 3.6 (3.4-5.1) mmol/L Chloride 108 H (98-107) mmol/L Carbon Dioxide 16 L (22-32) mmol/L BUN 29 H (9-20) mg/dL Creatinine 1.63 H (0.66-1.25) mg/dL Estimated GFR 43 L (>60) mL/min BUN/Creatinine Ratio 17.8 (6-22) Glucose 140 H (80-110) mg/dL Lactate 1.7 (0.7-2.1) mmol/L Calcium 9.1 (8.4-10.2) mg/dL Total Bilirubin 3.9 H (0.2-1.3) mg/dL AST 812 H (17-59) IU/L ALT 1415 H (<50) IU/L Alkaline Phosphatase 94 (38-126) U/L Total Protein 6.6 (6.3-8.2) g/dL Albumin 3.6 (3.5-5.0) g/dL Globulin 3.0 (1.7-4.1) g/dL Albumin/Globulin Ratio 1.2 (1.0-2.8) Lipase 135 (23-300) U/L Procalcitonin 8.57 H (<0.5) ng/mL Urine Color Urine Appearance Urine pH (4.5-8.0) Ur Specific [place] (1.000-1.035) Urine Protein (Negative) Urine Glucose (UA) (Negative) g/dL Urine Ketones (NEGATIVE) Urine Occult Blood (Negative) Urine Nitrate (Negative) Urine Bilirubin (NEGATIVE) Ur Bilirubin Confirm (Negative) Urine Urobilinogen (0.2) E.U./dL Ur Leukocyte Esterase (NEGATIVE) Urine RBC (0-5/HPF) Urine WBC (0-5/HPF) Ur Squamous Epith Cells (0-5/HPF) Urine Bacteria (None) Ur Culture Indicated? Vol Urine Centrifuged A.calcoaceticus-baumannii cmplx PCR Not detected (Not Detect) Chlamy pneumoniae PCR Not detected (Not Detect) Adenovirus (PCR) Not detected (Not Detect) Bacteroides fragilis Not detected (Not Detect) B.parapertussis DNA PCR Not detected (Not Detecte) Yin albicans (PCR) Not detected (Not Detect) Yin auris (PCR) Not detected (Not Detect) C. glabrata (PCR) Not detected (Not Detect) C. krusei (PCR) Not detected (Not Detect) C. parapsilosis (PCR) Not detected (Not Detect) C. tropicalis (PCR) Not detected (Not Detect) Coronavirus OC43 (PCR) Not detected (Not Detect) Coronavirus HKU1 (PCR) Not detected (Not Detect) Coronavirus 229E (PCR) Not detected (Not Detect) SARS-CoV-2 (PCR) Not detected (Not Detecte) Coronavirus NL63 (PCR) Not detected (Not Detect) C. neoform/gattii (PCR) Not detected (Not Detect) Enterobacterales (PCR) Detected (Not Detect) E. cloacae complex PCR Not detected (Not Detect) Enterococc faecalis PCR Not detected (Not Detect) Enterococc faecium PCR Not detected (Not Detect) E. coli (PCR) Detected (Not Detect) H. influenzae (PCR) Not detected (Not Detect) Human Metapneumovir PCR Not detected (Not Detect) Influenza Type A (PCR) Not detected (Not Detect) Influenza Type B (PCR) Not detected (Not Detect) Klebsiella aerogenes (PCR) Not detected (Not Detect) Klebsiella oxytoca PCR Not detected (Not Detect) Klebsiella pneumoniae Not detected (Not Detect) List. monocytogenes PCR Not detected (Not Detect) M. pneumoniae (PCR) Not detected (Not Detect) N. meningitidis (PCR) Not detected (Not Detect) Parainfluenza 1 (PCR) Not detected (Not Detect) Parainfluenza 2 (PCR) Not detected (Not Detect) Parainfluenza 3 (PCR) Not detected (Not Detect) Parainfluenza 4 (PCR) Not detected (Not Detect) Proteus species (PCR) Not detected (Not Detect) RSV (PCR) Not detected (Not Detect) Entero/Rhino (PCR) Not detected (Not Detect) Salmonella spp. (PCR) Not detected (Not Detect) Serratia marcescens PCR Not detected (Not Detect) Staphylococcus sp PCR Not detected (Not Detect) Staph aureus (PCR) Not detected (Not Detect) mecA/C & MREJ Resist Gene Not applicable (Not Detect) mecA/C-Methicil Resis Gene Not applicable (Not Detect) mcr-1 Colistin Res Gene PCR Not detected (Not Detect) Staph epidermidis (PCR) Not detected (Not Detect) Staph lugdunensis PCR Not detected (Not Detect) S. maltophilia (PCR) Not detected (Not Detect) Streptococcus sp PCR Not detected (Not Detect) Group A Strep (PCR) Not detected (Not Detect) Strep agalactiae (PCR) Not detected (Not Detect) Strep pneumoniae (PCR) Not detected (Not Detect) P. aeruginosa (PCR) Not detected (Not Detect) Freddy/B-Vanco Res Genes Not applicable (Not Detect) blaIMP Car res Gene PCR Not detected (Not Detect) KPC-Carbap Res Gene PCR Not detected (Not Detect) blaNDM Car Res Gene PCR Not detected (Not Detect) OXA-48 Carbapenem Resis Gene (PCR) Not detected (Not Detect) blaVIM Car Res Gene PCR Not detected (Not Detect) CTX-M Gene Resistance (PCR) Not detected (Not Detect) 08/13/24 08/13/24 Range/Units 02:39 12:48 WBC (4.5-11.0) X10^3/uL RBC (4.5-5.9) X10^6/uL Hgb (13.5-17.5) g/dL Hct (41-53) % MCV (80-100) fL MCH (26-34) PG MCHC (30-36) % RDW (11.6-14.8) % Plt Count (150-400) X10^3/uL Neut % (Auto) (50-75) % Lymph % (Auto) (25-40) % [place] % (Auto) (3-14) % Eos % (Auto) (2-4) % Baso % (Auto) (0-2) % Neut # (Auto) (4270-2036) /uL Lymph # (Auto) (0358-0407) /uL [place] # (Auto) (0-900) /uL Eos # (Auto) (0-450) /uL Baso # (Auto) (0-100) /uL PT (9.4-12.5) SECONDS INR (0.9-1.3) APTT (25.1-36.5) SECONDS Sodium 135 L (137-145) mmol/L Potassium 3.6 (3.4-5.1) mmol/L Chloride 113 H (98-107) mmol/L Carbon Dioxide 16 L (22-32) mmol/L BUN 26 H (9-20) mg/dL Creatinine 1.59 H (0.66-1.25) mg/dL Estimated GFR 44 L (>60) mL/min BUN/Creatinine Ratio 16.4 (6-22) Glucose 99 (80-110) mg/dL Lactate (0.7-2.1) mmol/L Calcium 7.9 L (8.4-10.2) mg/dL Total Bilirubin 2.8 H (0.2-1.3) mg/dL AST 382 H (17-59) IU/L ALT 900 H (<50) IU/L Alkaline Phosphatase 70 (38-126) U/L Total Protein 5.5 L (6.3-8.2) g/dL Albumin 2.8 L (3.5-5.0) g/dL Globulin 2.7 (1.7-4.1) g/dL Albumin/Globulin Ratio 1.0 (1.0-2.8) Lipase (23-300) U/L Procalcitonin (<0.5) ng/mL Urine Color [place] Urine Appearance Clear Urine pH 5.0 (4.5-8.0) Ur Specific [place]rak[place] 1.010 (1.000-1.035) Urine Protein Trace H (Negative) Urine Glucose (UA) Negative (Negative) g/dL Urine Ketones Negative (NEGATIVE) Urine Occult Blood Trace-intact (Negative) Urine Nitrate Negative (Negative) Urine Bilirubin 2+ H (NEGATIVE) Ur Bilirubin Confirm Positive H (Negative) Urine Urobilinogen 1.0 (0.2) E.U./dL Ur Leukocyte Esterase Negative (NEGATIVE) Urine RBC 0-1/hpf (0-5/HPF) Urine WBC 0-1/hpf (0-5/HPF) Ur Squamous Epith Cells None seen (0-5/HPF) Urine Bacteria Occasional (0-1) (None) Ur Culture Indicated? Cult not indicated Vol Urine Centrifuged 10ml (spun) A.calcoaceticus-baumannii cmplx PCR (Not Detect) Chlamy pneumoniae PCR (Not Detect) Adenovirus (PCR) (Not Detect) Bacteroides fragilis (Not Detect) B.parapertussis DNA PCR (Not Detecte) Yin albicans (PCR) (Not Detect) Yin auris (PCR) (Not Detect) C. glabrata (PCR) (Not Detect) C. krusei (PCR) (Not Detect) C. parapsilosis (PCR) (Not Detect) C. tropicalis (PCR) (Not Detect) Coronavirus OC43 (PCR) (Not Detect) Coronavirus HKU1 (PCR) (Not Detect) Coronavirus 229E (PCR) (Not Detect) SARS-CoV-2 (PCR) (Not Detecte) Coronavirus NL63 (PCR) (Not Detect) C. neoform/gattii (PCR) (Not Detect) Enterobacterales (PCR) (Not Detect) E. cloacae complex PCR (Not Detect) Enterococc faecalis PCR (Not Detect) Enterococc faecium PCR (Not Detect) E. coli (PCR) (Not Detect) H. influenzae (PCR) (Not Detect) Human Metapneumovir PCR (Not Detect) Influenza Type A (PCR) (Not Detect) Influenza Type B (PCR) (Not Detect) Klebsiella aerogenes (PCR) (Not Detect) Klebsiella oxytoca PCR (Not Detect) Klebsiella pneumoniae (Not Detect) List. monocytogenes PCR (Not Detect) M. pneumoniae (PCR) (Not Detect) N. meningitidis (PCR) (Not Detect) Parainfluenza 1 (PCR) (Not Detect) Parainfluenza 2 (PCR) (Not Detect) Parainfluenza 3 (PCR) (Not Detect) Parainfluenza 4 (PCR) (Not Detect) Proteus species (PCR) (Not Detect) RSV (PCR) (Not Detect) Entero/Rhino (PCR) (Not Detect) Salmonella spp. (PCR) (Not Detect) Serratia marcescens PCR (Not Detect) Staphylococcus sp PCR (Not Detect) Staph aureus (PCR) (Not Detect) mecA/C & MREJ Resist Gene (Not Detect) mecA/C-Methicil Resis Gene (Not Detect) mcr-1 Colistin Res Gene PCR (Not Detect) Staph epidermidis (PCR) (Not Detect) Staph lugdunensis PCR (Not Detect) S. maltophilia (PCR) (Not Detect) Streptococcus sp PCR (Not Detect) Group A Strep (PCR) (Not Detect) Strep agalactiae (PCR) (Not Detect) Strep pneumoniae (PCR) (Not Detect) P. aeruginosa (PCR) (Not Detect) Freddy/B-Vanco Res Genes (Not Detect) blaIMP Car res Gene PCR (Not Detect) KPC-Carbap Res Gene PCR (Not Detect) blaNDM Car Res Gene PCR (Not Detect) OXA-48 Carbapenem Resis Gene (PCR) (Not Detect) blaVIM Car Res Gene PCR (Not Detect) CTX-M Gene Resistance (PCR) (Not Detect) Urine Dip Bedside Urine Glucose Negative Bedside Urine Bilirubin + 1 Bedside Urine Ketone - Negative Urine Specific Sprakers 1.005 Bedside Urine Occult Blood +/- Bedside Urine pH 5.0 Bedside Urine Protein +/- 15 Bedside Urine Urobilinogen - Negative Bedside Urine Nitrite - Negative Bedside Urine Leukocytes + 70 Esterase Point of care testing: Urine Dip Bedside Urine Glucose Negative Bedside Urine Bilirubin + 1 Bedside Urine Ketone - Negative Urine Specific Sprakers 1.005 Bedside Urine Occult Blood +/- Bedside Urine pH 5.0 Bedside Urine Protein +/- 15 Bedside Urine Urobilinogen - Negative Bedside Urine Nitrite - Negative Bedside Urine Leukocytes + [address] scan - abdomen/pelvis: Radiologist's Impression: Close Abdomen/Pelvis CT (Signed) Call,Aleksandar - 08/13/24 Chest X-Ray (Signed) Call,08/12/24 [place] [address] CT Scan Report Signed Patient: Venkat Brice MR#: [id number] : 1945 Acct:[id number] Age/Sex: 79 / M Date of Service: 08/13/24 Loc: ED Accession Number: [id number] Procedure: CT abdomen pelvis w con Ordering Provider: Tere Dickerson D.O. PROCEDURE: CT ABDOMEN PELVIS W CON INDICATIONS: fever, abd pain, elevated bili TECHNIQUE: After the administration of intravenous contrast, axial sections acquired from the lung bases to the pubic symphysis. Coronal and sagittal reformats were performed. For radiation dose reduction, the following was used: automated exposure control, adjustment of mA and/or kV according to patient size. COMPARISON: None. FINDINGS: Image quality: Diagnostic. Lower Chest: No significant findings. ABDOMEN: Liver: No solid mass. Hepatic cysts. Gallbladder: Small gallstones. No pericholecystic fluid. Biliary ducts: No biliary dilation. Pancreas: No ductal dilation. Spleen: Size is within normal limits. Adrenal Glands: No adrenal nodules. Kidneys and Ureters: No significant hydronephrosis. Obstructing calculus in the distal right ureter near the UVJ measuring 0.5 cm, (2/82). No solid mass. No complex renal cystic lesion which requires follow up. Stomach and Bowel: Normal colonic caliber, without significant wall thickening. Diverticulosis. No diverticulitis. The appendix is not seen. No small bowel obstruction. Peritoneum: No abnormal intraperitoneal fluid. No free air. Ventral Wall: Small umbilical hernia containing a trace fluid. Abdominal Nodes: No retroperitoneal or mesenteric adenopathy by size criteria. Vessels: Aorta and inferior vena cava are normal in size. PELVIS: Pelvic Organs: Prostatomegaly. Asymmetric hypodensity at the right peripheral zone, (2/92). Bladder: No bladder wall thickening, accounting for underdistention. No stone. Pelvic Nodes: Right external iliac lymph node measuring 1.4 cm, (2/78). Miscellaneous: No inguinal hernias are seen. Bones: No aggressive osseous abnormality. Severe left hip DJD. IMPRESSION: 1. Obstructing calculus at the distal right ureter measuring 0.5 cm. No significant hydronephrosis. 2. Small gallstones. No pericholecystic fluid. No biliary ductal dilatation. -If concern for occult choledocholithiasis consider MRCP or ERCP. 3. Prostatomegaly. Subtle asymmetric hypodensity at the right peripheral zone. Indeterminate. CT is not very sensitive for the detection of prostate cancer. -Recommend correlation with PSA. If indicated this could be further evaluated with prostate MRI. 4. Enlarged right external iliac lymph node measuring 1.4 cm. Indeterminate. Dictated by: Aleksandar Valiente M.D. on 08/13/2024 at 1:06 Approved by: Aleksandar Valiente M.D. on 08/13/2024 at 1:16 ECG Data Attestation: I personally reviewed and interpreted this ECG as follows: Prior ECG tracings: not available for review Interpretation: Sinus tach right bundle-branch block left anterior fascicular block rate of 107 IA 202 QRS of 154 QTC 464. No priors for comparison. MDM Narrative Medical decision making narrative: 79-year-old meet septic criteria, patient is febrile tachycardic. Checked in his seizure but sounds like he has been having rigors with chills and no seizure activity according to patient had who both state he is alert throughout his shaking and that is when his fevers and chills has been at their worst. Patient has had some cough which he describes productive. Labs white count of 4 point hemoglobin of 12.1 appears consistent with, platelets are 181 predominance of neutrophils. INR is 1.5 creatinine is 1.63 somewhat up from prior 1.33 in November 22 CO2 16 with a BUN 29, sodium 134 potassium 3.6 with a chloride of 108, glucose is 140 lactate 1.7 calcium 9.1 total bilirubin 3.9, AST ALT are both elevated at 812 and 1415 Alk-phos is normal. Lipase is 135 procalcitonin is 8.5 Respiratory panel is negative EKG shows sinus tach right bundle-branch and left anterior fascicular block. No prior for comparison. Chest x-ray shows no acute change CT abdomen pelvis shows obstructing calculus distal right ureter measuring 0.5 cm no significant hydro, small gallstones no pericholecystic fluid no biliary ductal dilation, if concern for occult choledocholithiasis consider MRCP or ERCP. Prostatomegaly, subtle asymmetric hypodensity right peripheral zone CT not sensitive we will correlate with PSA or prostate MR, extended right external iliac lymph node measuring 1.4 cm. Urine shows trace protein, trace blood 2+ bilirubin, bilirubin confirmed with ictotest. Negative leukocyte esterase. 1-5 RBCs 1 WBC no squamous, occasional bacteria. Urine culture was ordered. Patient received Tylenol and fluids. Did not give 30 cc/kilos bolus immediately as patient is not hypotensive based on age has higher risk for CHF. On re-evaluation patient is feeling much improved. He states he did have some flank pain earlier this evening he states it was on the left he has not had any recent abdominal or flank pain. Reviewed his findings from today he has not been able to make urine yet but feels like he might be able. Patient was imaging no right-sided pain flank or abdominal. Discussed with patient I have access to Urology if he had a septic stone but do not have access to Gastroenterology if he needs ERCP. <Misa Nichols, DO - Last Filed: 08/14/24 07:41> Lab Data Labs: Lab Results 08/12/24 08/12/24 08/12/24 Range/Units 23:18 23:36 23:53 WBC 4.5 (4.5-11.0) X10^3/uL RBC 3.91 L (4.5-5.9) X10^6/uL Hgb 12.1 L (13.5-17.5) g/dL Hct 35.9 L (41-53) % MCV 91.7 (80-100) fL MCH 30.9 (26-34) PG MCHC 33.7 (30-36) % RDW 13.6 (11.6-14.8) % Plt Count 181 (150-400) X10^3/uL Neut % (Auto) 85.4 H (50-75) % Lymph % (Auto) 11.4 L (25-40) % [place] % (Auto) 1.7 L (3-14) % Eos % (Auto) 1.0 L (2-4) % Baso % (Auto) 0.5 (0-2) % Neut # (Auto) 3800 (7612-7178) /uL Lymph # (Auto) 500 L (6422-2642) /uL [place] # (Auto) 100 (0-900) /uL Eos # (Auto) 0 (0-450) /uL Baso # (Auto) 0 (0-100) /uL PT 17.1 H (9.4-12.5) SECONDS INR 1.5 H (0.9-1.3) APTT 28 (25.1-36.5) SECONDS Sodium 134 L (137-145) mmol/L Potassium 3.6 (3.4-5.1) mmol/L Chloride 108 H (98-107) mmol/L Carbon Dioxide 16 L (22-32) mmol/L BUN 29 H (9-20) mg/dL Creatinine 1.63 H (0.66-1.25) mg/dL Estimated GFR 43 L (>60) mL/min BUN/Creatinine Ratio 17.8 (6-22) Glucose 140 H (80-110) mg/dL Lactate 1.7 (0.7-2.1) mmol/L Calcium 9.1 (8.4-10.2) mg/dL Total Bilirubin 3.9 H (0.2-1.3) mg/dL AST 812 H (17-59) IU/L ALT 1415 H (<50) IU/L Alkaline Phosphatase 94 (38-126) U/L Total Protein 6.6 (6.3-8.2) g/dL Albumin 3.6 (3.5-5.0) g/dL Globulin 3.0 (1.7-4.1) g/dL Albumin/Globulin Ratio 1.2 (1.0-2.8) Lipase 135 (23-300) U/L Procalcitonin 8.57 H (<0.5) ng/mL Urine Color Urine Appearance Urine pH (4.5-8.0) Ur Specific Sprakers (1.000-1.035) Urine Protein (Negative) Urine Glucose (UA) (Negative) g/dL Urine Ketones (NEGATIVE) Urine Occult Blood (Negative) Urine Nitrate (Negative) Urine Bilirubin (NEGATIVE) Ur Bilirubin Confirm (Negative) Urine Urobilinogen (0.2) E.U./dL Ur Leukocyte Esterase (NEGATIVE) Urine RBC (0-5/HPF) Urine WBC (0-5/HPF) Ur Squamous Epith Cells (0-5/HPF) Urine Bacteria (None) Ur Culture Indicated? Vol Urine Centrifuged A.calcoaceticus-baumannii cmplx PCR Not detected (Not Detect) Chlamy pneumoniae PCR Not detected (Not Detect) Adenovirus (PCR) Not detected (Not Detect) Bacteroides fragilis Not detected (Not Detect) B.parapertussis DNA PCR Not detected (Not Detecte) Yin albicans (PCR) Not detected (Not Detect) Yin auris (PCR) Not detected (Not Detect) C. glabrata (PCR) Not detected (Not Detect) C. krusei (PCR) Not detected (Not Detect) C. parapsilosis (PCR) Not detected (Not Detect) C. tropicalis (PCR) Not detected (Not Detect) Coronavirus OC43 (PCR) Not detected (Not Detect) Coronavirus HKU1 (PCR) Not detected (Not Detect) Coronavirus 229E (PCR) Not detected (Not Detect) SARS-CoV-2 (PCR) Not detected (Not Detecte) Coronavirus NL63 (PCR) Not detected (Not Detect) C. neoform/gattii (PCR) Not detected (Not Detect) Enterobacterales (PCR) Detected (Not Detect) E. cloacae complex PCR Not detected (Not Detect) Enterococc faecalis PCR Not detected (Not Detect) Enterococc faecium PCR Not detected (Not Detect) E. coli (PCR) Detected (Not Detect) H. influenzae (PCR) Not detected (Not Detect) Human Metapneumovir PCR Not detected (Not Detect) Influenza Type A (PCR) Not detected (Not Detect) Influenza Type B (PCR) Not detected (Not Detect) Klebsiella aerogenes (PCR) Not detected (Not Detect) Klebsiella oxytoca PCR Not detected (Not Detect) Klebsiella pneumoniae Not detected (Not Detect) List. monocytogenes PCR Not detected (Not Detect) M. pneumoniae (PCR) Not detected (Not Detect) N. meningitidis (PCR) Not detected (Not Detect) Parainfluenza 1 (PCR) Not detected (Not Detect) Parainfluenza 2 (PCR) Not detected (Not Detect) Parainfluenza 3 (PCR) Not detected (Not Detect) Parainfluenza 4 (PCR) Not detected (Not Detect) Proteus species (PCR) Not detected (Not Detect) RSV (PCR) Not detected (Not Detect) Entero/Rhino (PCR) Not detected (Not Detect) Salmonella spp. (PCR) Not detected (Not Detect) Serratia marcescens PCR Not detected (Not Detect) Staphylococcus sp PCR Not detected (Not Detect) Staph aureus (PCR) Not detected (Not Detect) mecA/C & MREJ Resist Gene Not applicable (Not Detect) mecA/C-Methicil Resis Gene Not applicable (Not Detect) mcr-1 Colistin Res Gene PCR Not detected (Not Detect) Staph epidermidis (PCR) Not detected (Not Detect) Staph lugdunensis PCR Not detected (Not Detect) S. maltophilia (PCR) Not detected (Not Detect) Streptococcus sp PCR Not detected (Not Detect) Group A Strep (PCR) Not detected (Not Detect) Strep agalactiae (PCR) Not detected (Not Detect) Strep pneumoniae (PCR) Not detected (Not Detect) P. aeruginosa (PCR) Not detected (Not Detect) Freddy/B-Vanco Res Genes Not applicable (Not Detect) blaIMP Car res Gene PCR Not detected (Not Detect) KPC-Carbap Res Gene PCR Not detected (Not Detect) blaNDM Car Res Gene PCR Not detected (Not Detect) OXA-48 Carbapenem Resis Gene (PCR) Not detected (Not Detect) blaVIM Car Res Gene PCR Not detected (Not Detect) CTX-M Gene Resistance (PCR) Not detected (Not Detect) 08/13/24 08/13/24 Range/Units 02:39 12:48 WBC (4.5-11.0) X10^3/uL RBC (4.5-5.9) X10^6/uL Hgb (13.5-17.5) g/dL Hct (41-53) % MCV (80-100) fL MCH (26-34) PG MCHC (30-36) % RDW (11.6-14.8) % Plt Count (150-400) X10^3/uL Neut % (Auto) (50-75) % Lymph % (Auto) (25-40) % [place] % (Auto) (3-14) % Eos % (Auto) (2-4) % Baso % (Auto) (0-2) % Neut # (Auto) (7480-4265) /uL Lymph # (Auto) (7523-8323) /uL [place] # (Auto) (0-900) /uL Eos # (Auto) (0-450) /uL Baso # (Auto) (0-100) /uL PT (9.4-12.5) SECONDS INR (0.9-1.3) APTT (25.1-36.5) SECONDS Sodium 135 L (137-145) mmol/L Potassium 3.6 (3.4-5.1) mmol/L Chloride 113 H (98-107) mmol/L Carbon Dioxide 16 L (22-32) mmol/L BUN 26 H (9-20) mg/dL Creatinine 1.59 H (0.66-1.25) mg/dL Estimated GFR 44 L (>60) mL/min BUN/Creatinine Ratio 16.4 (6-22) Glucose 99 (80-110) mg/dL Lactate (0.7-2.1) mmol/L Calcium 7.9 L (8.4-10.2) mg/dL Total Bilirubin 2.8 H (0.2-1.3) mg/dL AST 382 H (17-59) IU/L ALT 900 H (<50) IU/L Alkaline Phosphatase 70 (38-126) U/L Total Protein 5.5 L (6.3-8.2) g/dL Albumin 2.8 L (3.5-5.0) g/dL Globulin 2.7 (1.7-4.1) g/dL Albumin/Globulin Ratio 1.0 (1.0-2.8) Lipase (23-300) U/L Procalcitonin (<0.5) ng/mL Urine Color [place] Urine Appearance Clear Urine pH 5.0 (4.5-8.0) Ur Specific Sprakers 1.010 (1.000-1.035) Urine Protein Trace H (Negative) Urine Glucose (UA) Negative (Negative) g/dL Urine Ketones Negative (NEGATIVE) Urine Occult Blood Trace-intact (Negative) Urine Nitrate Negative (Negative) Urine Bilirubin 2+ H (NEGATIVE) Ur Bilirubin Confirm Positive H (Negative) Urine Urobilinogen 1.0 (0.2) E.U./dL Ur Leukocyte Esterase Negative (NEGATIVE) Urine RBC 0-1/hpf (0-5/HPF) Urine WBC 0-1/hpf (0-5/HPF) Ur Squamous Epith Cells None seen (0-5/HPF) Urine Bacteria Occasional (0-1) (None) Ur Culture Indicated? Cult not indicated Vol Urine Centrifuged 10ml (spun) A.calcoaceticus-baumannii cmplx PCR (Not Detect) Chlamy pneumoniae PCR (Not Detect) Adenovirus (PCR) (Not Detect) Bacteroides fragilis (Not Detect) B.parapertussis DNA PCR (Not Detecte) Yin albicans (PCR) (Not Detect) Yin auris (PCR) (Not Detect) C. glabrata (PCR) (Not Detect) C. krusei (PCR) (Not Detect) C. parapsilosis (PCR) (Not Detect) C. tropicalis (PCR) (Not Detect) Coronavirus OC43 (PCR) (Not Detect) Coronavirus HKU1 (PCR) (Not Detect) Coronavirus 229E (PCR) (Not Detect) SARS-CoV-2 (PCR) (Not Detecte) Coronavirus NL63 (PCR) (Not Detect) C. neoform/gattii (PCR) (Not Detect) Enterobacterales (PCR) (Not Detect) E. cloacae complex PCR (Not Detect) Enterococc faecalis PCR (Not Detect) Enterococc faecium PCR (Not Detect) E. coli (PCR) (Not Detect) H. influenzae (PCR) (Not Detect) Human Metapneumovir PCR (Not Detect) Influenza Type A (PCR) (Not Detect) Influenza Type B (PCR) (Not Detect) Klebsiella aerogenes (PCR) (Not Detect) Klebsiella oxytoca PCR (Not Detect) Klebsiella pneumoniae (Not Detect) List. monocytogenes PCR (Not Detect) M. pneumoniae (PCR) (Not Detect) N. meningitidis (PCR) (Not Detect) Parainfluenza 1 (PCR) (Not Detect) Parainfluenza 2 (PCR) (Not Detect) Parainfluenza 3 (PCR) (Not Detect) Parainfluenza 4 (PCR) (Not Detect) Proteus species (PCR) (Not Detect) RSV (PCR) (Not Detect) Entero/Rhino (PCR) (Not Detect) Salmonella spp. (PCR) (Not Detect) Serratia marcescens PCR (Not Detect) Staphylococcus sp PCR (Not Detect) Staph aureus (PCR) (Not Detect) mecA/C & MREJ Resist Gene (Not Detect) mecA/C-Methicil Resis Gene (Not Detect) mcr-1 Colistin Res Gene PCR (Not Detect) Staph epidermidis (PCR) (Not Detect) Staph lugdunensis PCR (Not Detect) S. maltophilia (PCR) (Not Detect) Streptococcus sp PCR (Not Detect) Group A Strep (PCR) (Not Detect) Strep agalactiae (PCR) (Not Detect) Strep pneumoniae (PCR) (Not Detect) P. aeruginosa (PCR) (Not Detect) Freddy/B-Vanco Res Genes (Not Detect) blaIMP Car res Gene PCR (Not Detect) KPC-Carbap Res Gene PCR (Not Detect) blaNDM Car Res Gene PCR (Not Detect) OXA-48 Carbapenem Resis Gene (PCR) (Not Detect) blaVIM Car Res Gene PCR (Not Detect) CTX-M Gene Resistance (PCR) (Not Detect) Urine Dip Bedside Urine Glucose Negative Bedside Urine Bilirubin + 1 Bedside Urine Ketone - Negative Urine Specific Sprakers 1.005 Bedside Urine Occult Blood +/- Bedside Urine pH 5.0 Bedside Urine Protein +/- 15 Bedside Urine Urobilinogen - Negative Bedside Urine Nitrite - Negative Bedside Urine Leukocytes + 70 Esterase Point of care testing: Urine Dip Bedside Urine Glucose Negative Bedside Urine Bilirubin + 1 Bedside Urine Ketone - Negative Urine Specific Sprakers 1.005 Bedside Urine Occult Blood +/- Bedside Urine pH 5.0 Bedside Urine Protein +/- 15 Bedside Urine Urobilinogen - Negative Bedside Urine Nitrite - Negative Bedside Urine Leukocytes + 70 Esterase MDM Narrative Medical decision making narrative: 79-year-old meet septic criteria, patient is febrile tachycardic. Checked in his seizure but sounds like he has been having rigors with chills and no seizure activity according to patient had who both state he is alert throughout his shaking and that is when his fevers and chills has been at their worst. Patient has had some cough which he describes productive. Labs white count of 4 point hemoglobin of 12.1 appears consistent with, platelets are 181 predominance of neutrophils. INR is 1.5 creatinine is 1.63 somewhat up from prior 1.33 in November 22 CO2 16 with a BUN 29, sodium 134 potassium 3.6 with a chloride of 108, glucose is 140 lactate 1.7 calcium 9.1 total bilirubin 3.9, AST ALT are both elevated at 812 and 1415 Alk-phos is normal. Lipase is 135 procalcitonin is 8.5 Respiratory panel is negative EKG shows sinus tach right bundle-branch and left anterior fascicular block. No prior for comparison. Chest x-ray shows no acute change CT abdomen pelvis shows obstructing calculus distal right ureter measuring 0.5 cm no significant hydro, small gallstones no pericholecystic fluid no biliary ductal dilation, if concern for occult choledocholithiasis consider MRCP or ERCP. Prostatomegaly, subtle asymmetric hypodensity right peripheral zone CT not sensitive we will correlate with PSA or prostate MR, extended right external iliac lymph node measuring 1.4 cm. Urine shows trace protein, trace blood 2+ bilirubin, bilirubin confirmed with ictotest. Negative leukocyte esterase. 1-5 RBCs 1 WBC no squamous, occasional bacteria. Urine culture was ordered. Patient received Tylenol and fluids. Did not give 30 cc/kilos bolus immediately as patient is not hypotensive based on age has higher risk for CHF. On re-evaluation patient is feeling much improved. He states he did have some flank pain earlier this evening he states it was on the left he has not had any recent abdominal or flank pain. Reviewed his findings from today he has not been able to make urine yet but feels like he might be able. Patient was imaging no right-sided pain flank or abdominal. Discussed with patient I have access to Urology if he had a septic stone but do not have access to Gastroenterology if he needs ERCP. 08/13/24 8:00am Dr. Nichols-seen evaluated patient myself. Awaiting for MRCP. Concern for choledocholithiasis and sepsis. Mild hypotension with a map of 70 got sepsis fluids. Significantly elevated procalcitonin of 8.5, bilirubin 3.9 AST 812 and ALT 1415. Receiving Zosyn Q 8, currently sleeping blood pressure 113/64 MRCP cholelithiasis no choledoocholithiasis request transfer for possible cholangitis Blood cultures are positive with E coli x2 1730 Dr. Bhatti accepts patient for [facility] Received call back from transfer center they would like patient actually to go to [place] for GI. Spoke with hospitalist Dr. Melton who accepts patient Critical Care Time <Misa Nichols DO - Last Filed: 08/14/24 07:41> Critical Care Time Critical Care Time: Yes Total Critical Care Time: 40 Attestation: The high probability of a clinically significant, sudden or life threatening deterioration of the [cardiovascular] system(s) required my full and direct attention, intervention and personal management. The aggregate critical care time was 40 minutes. This time is in addition to time spent performing reported procedures but includes the following: [x] Data Review and interpretation [x] Patient assessment and monitoring of vital signs [x] Documentation [x] Medication orders and management Discharge Plan Departure Patient Disposition: [facility] Clinical Impression: Sepsis, Acute cholangitis, Bacteremia Prescriptions: No Action lisinopril 30 mg tablet 30 mg PO BID MDD 60mg Qty: 180 3RF Referrals: Gael Dougherty DO [Primary Care Provider] -
--- NOTE | 2024-08-12 23:20 | EKG_ITS ---
[address] [address] [address], [place] [address] Test Date: 2024-08-12 Pat Name: Venkat Brice Department: Room: Gender: Male [employer] Machine: FRANCOIS : 1945 Requested By: Order Number: [id number] Reading MD: Isaac Carranza Measurements Intervals [place] Rate: 107 P: 31 HI: 202 QRS: -63 QRSD: 154 T: 5 QT: 348 QTc: 464 Interpretive Statements Sinus tachycardia Right bundle branch block Left anterior fascicular block Bifascicular block Electronically Signed On 08-13-2024 17:59:22 PDT by Isaac Carranza
--- NOTE | 2024-08-12 23:26 | DI.RAD.S_ITS ---
PROCEDURE: XR CHEST 1V INDICATIONS: suspected sepsis TECHNIQUE: One view of the chest was acquired. COMPARISON: [facility], CT, CT ABDOMEN PELVIS W CON, 08/13/2024, 0:25. FINDINGS: Surgical changes and devices: None. Lungs and pleura: Lungs are clear. No pleural effusions or pneumothorax. Mediastinum: Mediastinal contours appear normal. Heart size is normal. Bones and chest wall: No suspicious bony lesions. Overlying soft tissues appear unremarkable. IMPRESSION: No acute cardiopulmonary abnormality is seen. Dictated by: Aleksandar Valiente M.D. on 08/13/2024 at 1:03 Approved by: Aleksandar Valiente M.D. on 08/13/2024 at 1:05
[2024-08-12 23:30] VITALS: PULSE 103; RESP 25; O2SAT 94
[2024-08-12 23:49] LABS: Add Manual Diff / Slide Review NO; Basophils Absolute Auto 0 /uL (0-100); Basophils Percent Auto 0.5 % (0-2); Eosinophils Absolute Auto 0 /uL (0-450); Hematocrit 35.9 % (41-53); Hemoglobin 12.1 g/dL (13.5-17.5); Lymphocytes Absolute Auto 500 /uL (1100-4500); Lymphocytes Percent Auto 11.4 % (25-40); Mean Corpuscular HGB Conc 33.7 % (30-36); Mean Corpuscular Hemoglobin 30.9 PG (26-34); Mean Corpuscular Volume 91.7 fL (80-100); Monocytes Absolute Auto 100 /uL (0-900); Monocytes Percent Auto 1.7 % (3-14); Neutrophils Absolute Auto 3800 /uL (1500-7000); Neutrophils Percent Auto 85.4 % (50-75); Platelet Count 181 X10^3/uL (150-400); Red Blood Cell Count 3.91 X10^6/uL (4.5-5.9); Red Cell Distribution Width 13.6 % (11.6-14.8); White Blood Cell Count 4.5 X10^3/uL (4.5-11.0)
[2024-08-12 23:50] VITALS: BP 107/52; PULSE 100; RESP 23; O2SAT 94
[2024-08-12] MEDS: SODIUM CHLORIDE 0.9% 1,000 ML 1000 ML IV (23:54)
[2024-08-12] MEDS: ACETAMINOPHEN 325 MG TABLET 975 MG PO (23:54)
[2024-08-12 23:55] LABS: INR 1.5 (0.9-1.3); Prothrombin Time 17.1 SECONDS (9.4-12.5)
[2024-08-12 23:58] LABS: PTT Partial Thromboplastin Tim 28 SECONDS (25.1-36.5)
[2024-08-12 23:59] LABS: Albumin 3.6 g/dL (3.5-5.0); Albumin Globulin Ratio 1.2 (1.0-2.8); Alkaline Phosphatase 94 U/L (38-126); BUN Creatinine Ratio 17.8 (6-22); Bilirubin Total 3.9 mg/dL (0.2-1.3); Blood Urea Nitrogen 29 mg/dL (9-20); Calcium 9.1 mg/dL (8.4-10.2); Carbon Dioxide 16 mmol/L (22-32); Chloride 108 mmol/L (98-107); Estimated Glomerular Filt Rate 43 mL/min (>60); Glucose 140 mg/dL (80-110); HEMOLYSIS < 15 (0-50); Lipase 135 U/L (23-300); Potassium 3.6 mmol/L (3.4-5.1); Sodium 134 mmol/L (137-145); Total Protein 6.6 g/dL (6.3-8.2)
[2024-08-13] VITALS (58 sets, daily range): BP systolic 91–162; BP diastolic 50–72; PULSE 56–99; RESP 13–33; TEMP 36.6–37.3; O2SAT 93–100
[2024-08-13] LABS: Lactate (Lactic Acid) 1.7 mmol/L (0.7-2.1)
--- NOTE | 2024-08-13 00:02 | PC.NURSE ---
Pt states that he recently had a injection in his back due to chronic issues. He states that it may be due to this since his back still hurts a lot.
--- NOTE | 2024-08-13 00:09 | DI.CT.S_ITS ---
PROCEDURE: CT ABDOMEN PELVIS W CON INDICATIONS: fever, abd pain, elevated bili TECHNIQUE: After the administration of intravenous contrast, axial sections acquired from the lung bases to the pubic symphysis. Coronal and sagittal reformats were performed. For radiation dose reduction, the following was used: automated exposure control, adjustment of mA and/or kV according to patient size. COMPARISON: None. FINDINGS: Image quality: Diagnostic. Lower Chest: No significant findings. ABDOMEN: Liver: No solid mass. Hepatic cysts. Gallbladder: Small gallstones. No pericholecystic fluid. Biliary ducts: No biliary dilation. Pancreas: No ductal dilation. Spleen: Size is within normal limits. Adrenal Glands: No adrenal nodules. Kidneys and Ureters: No significant hydronephrosis. Obstructing calculus in the distal right ureter near the UVJ measuring 0.5 cm, (2/82). No solid mass. No complex renal cystic lesion which requires follow up. Stomach and Bowel: Normal colonic caliber, without significant wall thickening. Diverticulosis. No diverticulitis. The appendix is not seen. No small bowel obstruction. Peritoneum: No abnormal intraperitoneal fluid. No free air. Ventral Wall: Small umbilical hernia containing a trace fluid. Abdominal Nodes: No retroperitoneal or mesenteric adenopathy by size criteria. Vessels: Aorta and inferior vena cava are normal in size. PELVIS: Pelvic Organs: Prostatomegaly. Asymmetric hypodensity at the right peripheral zone, (2/92). Bladder: No bladder wall thickening, accounting for underdistention. No stone. Pelvic Nodes: Right external iliac lymph node measuring 1.4 cm, (2/78). Miscellaneous: No inguinal hernias are seen. Bones: No aggressive osseous abnormality. Severe left hip DJD. IMPRESSION: 1. Obstructing calculus at the distal right ureter measuring 0.5 cm. No significant hydronephrosis. 2. Small gallstones. No pericholecystic fluid. No biliary ductal dilatation. -If concern for occult choledocholithiasis consider MRCP or ERCP. 3. Prostatomegaly. Subtle asymmetric hypodensity at the right peripheral zone. Indeterminate. CT is not very sensitive for the detection of prostate cancer. -Recommend correlation with PSA. If indicated this could be further evaluated with prostate MRI. 4. Enlarged right external iliac lymph node measuring 1.4 cm. Indeterminate. Dictated by: Aleksandar Valiente M.D. on 08/13/2024 at 1:06 Approved by: Aleksandar Valiente M.D. on 08/13/2024 at 1:16
[2024-08-13 00:13] LABS: Alanine Aminotransferase 1415 IU/L (<50)
[2024-08-13 00:16] LABS: Procalcitonin 8.57 ng/mL (<0.5)
[2024-08-13] MEDS: PIPERACILLIN/TAZO 4.5 GM in SODIUM CHLORIDE 0.9% 100 ML IV (00:20)
[2024-08-13] MEDS: SODIUM CHLORIDE 0.9% 2,259 ML 753 ML IV (00:21)
[2024-08-13 00:27] LABS: Aspartate Aminotransferase 812 IU/L (17-59)
[2024-08-13 00:30] LABS: Adenovirus Not Detected (Not Detect); B. parapertussis Not Detected (Not Detecte); Bordetella pertussis Not Detected (Not Detect); Chlamydophila pneumoniae Not Detected (Not Detect); Coronavirus 229E Not Detected (Not Detect); Coronavirus HKU1 Not Detected (Not Detect); Coronavirus NL 63 Not Detected (Not Detect); Coronavirus OC43 Not Detected (Not Detect); Human Metapneumovirus Not Detected (Not Detect); Human Rhinovirus/Enterovirus Not Detected (Not Detect); Influenza A Not Detected (Not Detect); Influenza B Not Detected (Not Detect); Mycoplasma pneumoniae Not Detected (Not Detect); Parainfluenza Virus 1 Not Detected (Not Detect); Parainfluenza Virus 2 Not Detected (Not Detect); Parainfluenza Virus 3 Not Detected (Not Detect); Parainfluenza Virus 4 Not Detected (Not Detect); Respiratory Syncytial Virus Not Detected (Not Detect); SARS- CoV-2 Not Detected (Not Detecte)
--- NOTE | 2024-08-13 02:58 | PC.NURSE ---
Total Sepsis fluids 2259 ml. Then changed order to 150 ml/hr continous 0.9% NS
[2024-08-13] MEDS: SODIUM CHLORIDE 0.9% 1,000 ML 150 ML IV (03:00)
[2024-08-13 03:17] LABS: Appearance Urine UA CLEAR; Bilirubin Urine UA 2+ (NEGATIVE); Glucose Urine UA NEGATIVE (Negative); Ketones Urine UA NEGATIVE (NEGATIVE); Leukocyte Esterase Urine UA NEGATIVE (NEGATIVE); Nitrite Urine UA NEGATIVE (Negative); Occult Blood Urine UA TRACE-INTACT (Negative); Protein Urine UA TRACE (Negative)
[2024-08-13 03:22] LABS: Ictotest Urine Positive (Negative)
[2024-08-13 04:00] LABS: Bacteria Urine Occasional (0-1); Color Urine UA Amber; Culture Indicated Urine Cult Not Indicated; RBC Urine 0-1/HPF (0-5/HPF); Squamous Epithelial Cell Urine None Seen (0-5/HPF); Urine Volume 10mL (spun); WBC Urine 0-1/HPF (0-5/HPF)
--- NOTE | 2024-08-13 04:02 | DI.MRI.S_ITS ---
PROCEDURE: MR ABDOMEN WO/W CON INDICATIONS: sepsis, elevated lfts TECHNIQUE: Coronal HASTE, axial 2D FLASH in- and [id number]; axial breath-hold T2 FSE. Dynamic axial VIBE during the administration of contrast; post-contrast coronal VIBE or 2D FLASH with fat saturation from the hepatic dome to the iliac crests. Optional diffusion weighted imaging and ADC may be performed. COMPARISON: [facility], CT, CT ABDOMEN PELVIS W CON, 08/13/2024, 0:25. FINDINGS: Image quality: Suboptimal due to motion artifact. Lung bases: Unremarkable. Liver: No solid mass. Hepatic cysts. Gallbladder: Cholelithiasis without wall thickening. Biliary ducts: No biliary dilation. Pancreas: No ductal dilation. Spleen: Size is within normal limits. Adrenal Glands: No adrenal nodules. Kidneys and Ureters: No hydronephrosis. No solid mass. No complex renal cystic lesion which requires follow up. Stomach and Bowel: Normal colonic caliber, without significant wall thickening. Colonic diverticulosis without evidence of diverticulitis. Peritoneum: No abnormal intraperitoneal fluid. No free air. Ventral Wall: No hernia. Abdominal Nodes: No retroperitoneal or mesenteric adenopathy by size criteria. Vessels: Aorta and inferior vena cava are normal in size. Bones: No aggressive osseous abnormality. IMPRESSION: Cholelithiasis without evidence of choledocholithiasis, although evaluation is suboptimal due to motion artifact. No right-sided renal hydronephrosis. Symmetric enhancement of the kidneys. Colonic diverticulosis without evidence of diverticulitis. Dictated by: Paulino Gamino M.D. on 08/13/2024 at 10:40 Approved by: Paulino Gamino M.D. on 08/13/2024 at 10:43
[2024-08-13] MEDS: PIPERACILLIN/TAZO 3.375 GM in SODIUM CHLORIDE 0.9% 100 ML IV ×3 (07:47→21:47)
--- NOTE | 2024-08-13 11:04 | PC.NURSE ---
This RN is delaying the assessment because the patient is resting with their eyes closed, respirations are even. ARMANI Rivera checked vital signs after patient returned from ERCP and vitals were stable, afebrible at 98.4
[2024-08-13 12:10] LABS: Acinetobacter calcoa-baumannii Not Detected (Not Detect); Bacteroides fragilis Not Detected (Not Detect); CTX-M Resistance Not Detected (Not Detect); Candida albicans Not Detected (Not Detect); Candida auris Not Detected (Not Detect); Candida glabrata Not Detected (Not Detect); Candida krusei Not Detected (Not Detect); Candida parapsilosis Not Detected (Not Detect); Candida tropicalis Not Detected (Not Detect); Cryptococcus neoformans/gatti Not Detected (Not Detect); Enterobacter cloacae complex Not Detected (Not Detect); Enterobacterales Detected (Not Detect); Enterococcus faecalis Not Detected (Not Detect); Enterococcus faecium Not Detected (Not Detect); Haemophilus influenzae Not Detected (Not Detect); IMP Resistance Not Detected (Not Detect); KPC Resistance Not Detected (Not Detect); Klebsiella aerogenes Not Detected (Not Detect); Listeria monocytogenes Not Detected (Not Detect); NDM Resistance Not Detected (Not Detect); Neisseria meningitidis Not Detected (Not Detect); OXA-48-like Resistance Not Detected (Not Detect); Proteus species Not Detected (Not Detect); Pseudomonas aeruginosa Not Detected (Not Detect); Salmonella species Not Detected (Not Detect); Serratia marcescens Not Detected (Not Detect); Staphylococcus epidermidis Not Detected (Not Detect); Staphylococcus lugdunensis Not Detected (Not Detect); Staphylococcus species Not Detected (Not Detect); Stenotrophomonas maltophilia Not Detected (Not Detect); Streptococcus agalactiae (Gr B Not Detected (Not Detect); Streptococcus pneumonia Not Detected (Not Detect); Streptococcus pyogenes (Gr A) Not Detected (Not Detect); Streptococcus species Not Detected (Not Detect); VIM Resistance Not Detected (Not Detect); mcr-1 Resistance Not Detected (Not Detect)
[2024-08-13 13:04] LABS: Albumin 2.8 g/dL (3.5-5.0); Alkaline Phosphatase 70 U/L (38-126); Aspartate Aminotransferase 382 IU/L (17-59); BUN Creatinine Ratio 16.4 (6-22); Bilirubin Total 2.8 mg/dL (0.2-1.3); Blood Urea Nitrogen 26 mg/dL (9-20); Calcium 7.9 mg/dL (8.4-10.2); Carbon Dioxide 16 mmol/L (22-32); Chloride 113 mmol/L (98-107); Estimated Glomerular Filt Rate 44 mL/min (>60); Globulin 2.7 g/dL (1.7-4.1); Glucose 99 mg/dL (80-110); HEMOLYSIS < 15 (0-50); Potassium 3.6 mmol/L (3.4-5.1); Sodium 135 mmol/L (137-145); Total Protein 5.5 g/dL (6.3-8.2)
[2024-08-13 13:23] LABS: Alanine Aminotransferase 900 IU/L (<50)
--- NOTE | 2024-08-13 16:46 | PC.NURSE ---
at this time patient is afebrile 97.8 oral, and denying any pain.
== END 2024-08-13 21:50 | disposition short-term general hospital (02) ==
PROVIDERS: Emergency Medicine; Emergency Provider Emergency Medicine; PCP Family Medicine
DX: K83.09 Other cholangitis (principal); R78.81 Bacteremia; I45.2 Bifascicular block; E78.5 Hyperlipidemia, unspecified; R00.0 Tachycardia, unspecified; N20.1 Calculus of ureter; N40.0 Benign prostatic hyperplasia without lower urinary tract symptoms; I95.9 Hypotension, unspecified; R79.89 Other specified abnormal findings of blood chemistry; Z11.52 Encounter for screening for COVID-19
CPT/HCPCS: 36415; 71045; 74177; 74183; 80053; 81001; 81003; 83605; 83690; 84145; 85025; 85610; 85730; 87040; 87077; 87086; 87154; 87186; 87633; 93005; 96361; 96365; 96366; 99285; 99291; A9579; J2543; Q9967

== ENCOUNTER → 2024-08-26 07:31 | Outpatient (CLI) | payer OTHER, SELFPAY ==
[2024-08-26 08:46] LABS: Alanine Aminotransferase 62 IU/L (<50); Albumin 4.1 g/dL (3.5-5.0); Albumin Globulin Ratio 1.6 (1.0-2.8); Alkaline Phosphatase 61 U/L (38-126); Aspartate Aminotransferase 27 IU/L (17-59); BUN Creatinine Ratio 19.3 (6-22); Bilirubin Total 0.6 mg/dL (0.2-1.3); Blood Urea Nitrogen 23 mg/dL (9-20); Calcium 9.7 mg/dL (8.4-10.2); Carbon Dioxide 22 mmol/L (22-32); Chloride 109 mmol/L (98-107); Cholesterol 176 mg/dL (140-199); Estimated Glomerular Filt Rate > 60 mL/min (>60); Globulin 2.6 g/dL (1.7-4.1); Glucose 86 mg/dL (80-110); HDL Cholesterol 31 mg/dL (40-60); HEMOLYSIS < 15 (0-50); LDL Cholesterol Calculated 124 mg/dL (<100); Potassium 4.6 mmol/L (3.4-5.1); Sodium 140 mmol/L (137-145); Total Protein 6.7 g/dL (6.3-8.2); Triglycerides 105 mg/dL (35-150)
== END ==
PROVIDERS: PCP Family Medicine; Referring Provider Family Medicine; Visit Provider Family Medicine
DX: K83.09 Other cholangitis (principal); A41.9 Sepsis, unspecified organism
CPT/HCPCS: 36415; 80053; 80061

== ENCOUNTER → 2024-10-07 07:19 | Outpatient (CLI) | payer OTHER, SELFPAY ==
[2024-10-08 11:36] LABS: PSA, Total 5.6 ng/mL (0.0-4.0)
== END ==
PROVIDERS: PCP Family Medicine; Referring Provider Urology; Visit Provider Urology
DX: R97.20 Elevated prostate specific antigen [PSA] (principal)
CPT/HCPCS: 36415; 84153; 84154

== ENCOUNTER → 2024-10-22 07:07 | Outpatient (CLI) | payer OTHER, SELFPAY ==
--- NOTE | 2024-10-22 07:08 | DI.CT.S_ITS ---
PROCEDURE: CT ABDOMEN PELVIS WO CON INDICATIONS: History of stones/sepsis TECHNIQUE: Axial sections were acquired from the lung bases to the pubic symphysis. Coronal and sagittal reformats were performed. For radiation dose reduction, the following was used: automated exposure control, adjustment of mA and/or kV according to patient size. COMPARISON: [facility], CT, CT ABDOMEN PELVIS W CON, 08/13/2024, 0:25. FINDINGS: Image quality: Diagnostic. Lower Chest: No significant findings. URINARY: Right Kidney: Right kidney without evidence for renal stones. No hydronephrosis. No perinephric stranding. There is a 2.7 cm right renal cyst. Other smaller right renal hypodensities are incompletely characterized but likely represent cysts. Right Ureter: No hydroureter. Left Kidney: There is a small 3 mm nonobstructing left renal stone. No left hydronephrosis. There is a 2.1 cm left renal cyst. Left Ureter: No hydroureter. Bladder: Normal wall thickness. There is a 4 mm urinary bladder stone noted in the dependent portions of the midline bladder. No significant wall thickening or perivesicular stranding. ABDOMEN: Liver: No contour-deforming solid mass. There are a few scattered subcentimeter hepatic hypodensities which are too small to accurately characterize but likely represent cysts versus hemangiomas. Gallbladder: Multiple layering densities noted in the distal aspect of the gallbladder neck likely representing small gallstones. No CT evidence for acute cholecystitis. Biliary ducts: No biliary dilation. Pancreas: No ductal dilation. No peripancreatic inflammation. Spleen: Size is within normal limits. Adrenal Glands: No adrenal nodules. Stomach and Bowel: Normal colonic caliber, without significant wall thickening. Extensive colonic diverticulosis without acute diverticulitis. No evidence for small bowel obstruction or associated inflammatory changes. Peritoneum: No abnormal intraperitoneal fluid. No free air. Ventral Wall: There is a fat-containing umbilical hernia without acute inflammation. Abdominal Nodes: No enlarged retroperitoneal or mesenteric lymph nodes. Vessels: Aorta and inferior vena cava are normal in size. Atherosclerotic calcifications. PELVIS: Pelvic Organs: Prominent prostate gland. Pelvic Nodes: Unremarkable. Miscellaneous: No inguinal hernias are seen. Bones: No acute vertebral body compression fractures. Multilevel spondylitic changes throughout the imaged spine. No suspicious osseous lesions. IMPRESSION: 1. A 4 mm urinary bladder stone identified without evidence for bladder wall thickening or perivesicular inflammation. Incidental nonobstructing 3 mm left renal stone without left hydronephrosis. 2. Cholelithiasis without CT evidence for acute cholecystitis. 3. Colonic diverticulosis without acute diverticulitis. 4. Multiple bilateral renal and hepatic hypodensities likely representing. 5. Other non acute and chronic findings as above. Dictated by: Pete Goins M.D. on 10/22/2024 at 10:11 Approved by: Pete Goins M.D. on 10/22/2024 at 10:18
== END ==
PROVIDERS: PCP Family Medicine; Referring Provider Urology; Visit Provider Urology
DX: N20.0 Calculus of kidney (principal); N21.0 Calculus in bladder; N28.1 Cyst of kidney, acquired; K80.20 Calculus of gallbladder without cholecystitis without obstruction; K57.90 Diverticulosis of intestine, part unspecified, without perforation or abscess without bleeding; K42.9 Umbilical hernia without obstruction or gangrene; Z86.19 Personal history of other infectious and parasitic diseases
CPT/HCPCS: 74176

== ENCOUNTER → 2024-12-03 10:57 | Outpatient (CLI) | payer OTHER, SELFPAY ==
--- NOTE | 2024-12-03 11:00 | DI.RAD.S_ITS ---
PROCEDURE: XR HIP W PEL IF DONE LT 2V INDICATIONS: worsening hip pain TECHNIQUE: AP pelvis with lateral view(s) of the left hip(s). COMPARISON: None. FINDINGS: Bones: No fractures or dislocations. Asymmetric severe left hip joint osteoarthritic changes are seen. No evidence of avascular necrosis of femoral head. Pelvic ring appears intact. No suspicious bony lesions. Soft tissues: The visualized bowel gas pattern is normal. No suspicious soft tissue calcifications. IMPRESSION: Asymmetric severe left hip joint osteoarthritis. No acute fracture or dislocation. No evidence of avascular necrosis. Dictated by: Maged Ochoa M.D. on 12/03/2024 at 14:46 Approved by: Maged Ochoa M.D. on 12/03/2024 at 14:47
== END ==
PROVIDERS: PCP Family Medicine; Referring Provider Family Medicine; Visit Provider Family Medicine
DX: M16.0 Bilateral primary osteoarthritis of hip (principal); M25.552 Pain in left hip; G89.29 Other chronic pain
CPT/HCPCS: 73502

== ENCOUNTER → 2024-12-29 11:45 | Outpatient (CLI) | payer OTHER, SELFPAY ==
--- NOTE | 2024-12-29 12:30 | EKG_ITS ---
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
[2024-12-29 12:36] LABS: Appearance Urine UA CLEAR; Bilirubin Urine UA NEGATIVE (NEGATIVE); Color Urine UA YELLOW; Glucose Urine UA NEGATIVE (Negative); Ketones Urine UA NEGATIVE (NEGATIVE); Leukocyte Esterase Urine UA NEGATIVE (NEGATIVE); Nitrite Urine UA NEGATIVE (Negative); Occult Blood Urine UA 1+ (Negative); Protein Urine UA NEGATIVE (Negative); Urobilinogen Urine UA 0.2 E.U./dL (0.2)
[2024-12-29 12:41] LABS: Urine Volume 10mL (spun)
[2024-12-29 12:42] LABS: Bacteria Urine None Seen; Culture Indicated Urine Cult Not Indicated; RBC Urine 1-5/HPF (0-5/HPF); Squamous Epithelial Cell Urine None Seen (0-5/HPF); WBC Urine None Seen (0-5/HPF)
[2024-12-29 13:11] LABS: Add Manual Diff / Slide Review NO; Basophils Absolute Auto 0 /uL (0-100); Basophils Percent Auto 0.4 % (0-2); Eosinophils Absolute Auto 400 /uL (0-450); Eosinophils Percent Auto 5.3 % (2-4); Hematocrit 43.9 % (41-53); Hemoglobin 14.5 g/dL (13.5-17.5); Lymphocytes Absolute Auto 3100 /uL (1100-4500); Lymphocytes Percent Auto 43.1 % (25-40); Mean Corpuscular Hemoglobin 30.4 PG (26-34); Mean Corpuscular Volume 92.3 fL (80-100); Monocytes Absolute Auto 400 /uL (0-900); Monocytes Percent Auto 6.3 % (3-14); Neutrophils Absolute Auto 3200 /uL (1500-7000); Neutrophils Percent Auto 44.9 % (50-75); Platelet Count 209 X10^3/uL (150-400); Red Blood Cell Count 4.76 X10^6/uL (4.5-5.9); Red Cell Distribution Width 12.8 % (11.6-14.8); White Blood Cell Count 7.1 X10^3/uL (4.5-11.0)
[2024-12-29 13:25] LABS: Hemoglobin A1C% w Est Avg Glu 5.8 % (4.0-6.0)
[2024-12-29 13:33] LABS: Blood Urea Nitrogen 24 mg/dL (9-20); C-Reactive Protein Quant < 0.5 mg/dL (<1.0); Calcium 9.9 mg/dL (8.4-10.2); Carbon Dioxide 21 mmol/L (22-32); Chloride 107 mmol/L (98-107); Estimated Glomerular Filt Rate 55 mL/min (>60); Glucose 76 mg/dL (80-110); HEMOLYSIS < 15 (0-50); Potassium 4.5 mmol/L (3.4-5.1); Sodium 139 mmol/L (137-145)
[2024-12-29 14:21] LABS: Erythrocyte Sedimentation Rate 4 MM/HR (0-15)
[2024-12-31 12:40] LABS: PSA Free % 31.3 % (.)
== END ==
PROVIDERS: Urology; PCP Family Medicine; Referring Provider Orthopaedic Surgery; Visit Provider Orthopaedic Surgery
DX: Z01.818 Encounter for other preprocedural examination (principal); R73.9 Hyperglycemia, unspecified; Z01.812 Encounter for preprocedural laboratory examination; R70.0 Elevated erythrocyte sedimentation rate; N39.0 Urinary tract infection, site not specified; R79.82 Elevated C-reactive protein (CRP); R97.20 Elevated prostate specific antigen [PSA]
CPT/HCPCS: 36415; 80048; 81001; 83036; 84153; 84154; 85025; 85651; 86140; 93005

== ENCOUNTER 2025-02-03 06:13 | Day surgery (SDC) | payer OTHER, SELFPAY ==
[2025-01-25 08:29] VITALS: BMI 30.1
[2025-02-03] VITALS (11 sets, daily range): BP systolic 99–150; BP diastolic 65–88; PULSE 3–112; RESP 14–16; TEMP 36.2–36.6; O2SAT 93–98; BMI 29.9
--- NOTE | 2025-02-03 | DI.RAD.S_ITS ---
PROCEDURE: [id number] W PEL IF PERFORMED INDICATIONS: TOTAL LT HIP ARTHROPLASTY TECHNIQUE: AP pelvis with lateral view(s) of the left hip(s). COMPARISON: [facility], [place], [place] HIP W PEL IF DONE LT 2V, 02/03/2025, 10:18. [facility], [place], XR HIP W PEL IF DONE LT 2V, 12/03/2024, 11:07. FINDINGS AND IMPRESSION: Multiple intraoperative fluoroscopic images were obtained for left hip arthroplasty. Please see operative note full details. Hardware is in expected position. Dictated by: Osmani Pettit M.D. on 02/03/2025 at 10:49 Approved by: Osmani Pettit M.D. on 02/03/2025 at 10:50
--- NOTE | 2025-02-03 06:00 | DI.RAD.S_ITS ---
PROCEDURE: XR HIP W PEL IF DONE LT 2V INDICATIONS: DEAN TECHNIQUE: AP pelvis with lateral view(s) of the left hip(s). [id number]FOR[facility], 02/03/2025, 8:54. [facility], [place], [place] HIP W PEL IF DONE LT 2V, 12/03/2024, 11:07. FINDINGS: Bones: No fractures or dislocations. Expected postsurgical change after left total hip arthroplasty earlier same day. Pelvic ring appears intact. No suspicious bony lesions. Soft tissues: The visualized bowel gas pattern is normal. No suspicious soft tissue calcifications. IMPRESSION: Normal alignment after left total hip arthroplasty earlier same day. Dictated by: Spenser Bond M.D. on 02/03/2025 at 10:52 Approved by: Spenser Bond M.D. on 02/03/2025 at 10:55
[2025-02-03] MEDS: ACETAMINOPHEN 325 MG TABLET 975 MG PO (07:07)
[2025-02-03] MEDS: CELECOXIB 200 MG CAPSULE PO (07:08)
[2025-02-03] MEDS: LACTATED RINGERS 1,000 ML 42 ML IV (07:09)
[2025-02-03] MEDS: VANCOMYCIN 1,000 MG in SODIUM CHLORIDE 0.9% 250 ML 250 MG IV (07:11)
--- NOTE | 2025-02-03 07:28 | PM.PREOP ---
Pre-operative Note Interval Note History & Physical reviewed/Exam performed by Physician: Yes Changes to H&P: No
--- NOTE | 2025-02-03 07:29 | P.OP_ITS ---
Operative Date/Time/Diagnoses Date of procedure: 02/03/25 Time of procedure: 07:45 Pre-op diagnosis: Left hip OA Post-op diagnosis: same Procedure & Clinicians Procedure: Left total hip arthroplasty anterior approach Same procedure as scheduled: Yes Indications: The patient has had progressively worsening left hip pain with radiographic quiroz ges consistent with arthritis. Non-operative management has failed and the patient has requested total hip replacement. The risks, benefits and alternatives to surgery were discussed with the patient prior to proceeding. Risks discussed included, but were not limited to, failure to relieve pain, leg length discrepancy, dislocation, stiffness, infection, nerve damage, deep venous thrombosis, pulmonary embolism, stroke, coma, heart attack, permanent paralysis and , as well as the potential need for eventual revision of the prosthetic. Surgeon: Olivia White Agricultural Scientist: Farzaneh Moe Anesthesia Type: General and Spinal Operative Notes Findings: Severe left hip OA, adequate bone, adequate stability Closure Type: primary Specimen(s): none sent Prosthetic devices, grafts, tissues, transplants, or devices: White and nephew R3 58 mm, neutral poly liner,one 6.5 mm screw, polar stem lateralized offset size 3, 36 x +4 cobalt chrome head Estimated Blood Loss (mL): 250 Blood products transfused: none Procedure in detail: The patient was brought to the operating room. Patient was carefully positioned in the supine position. Time-out was performed and antibiotics were given. Anesthesia was induced. He was positioned in the on the table in order to allow hyperextension of the hip. The left lower extremity was prepped and draped in a standard sterile fashion. An anterior left hip incision was made 1 fingerbreadth lateral to the anterior superior iliac spine and extended distally towards the greater trochanter. Dissection was carried out through skin and subcutaneous tissues. Superficial hemostasis was achieved. The fascia over the tensor fascia dinesh was defined and incised with a knife. Two Allis clamps were used to grasp the fascia. Tensor fascia dinesh was retracted laterally. A gelpi retractor was placed. Dissection was carried out down along the neck. The circumflex vessels were carefully identified and cauterized with the Aqua Mantis. A PA was used during the procedure and was essential for intraoperative retraction and safe implantation of the components. There was good visualization of the femoral neck. A Cobra was placed superior to the neck and the gluteus fibers were carefully stripped from that superior aspect of the capsule. A 2nd retractor was placed along the inferior aspect of the neck. The rectus insertion along the capsule was partially released. A 3rd retractor that was then gently placed over the rim of the acetabulum under the rectus. Capsule was carefully incised and released from the intertrochanteric line circumferentially superior to the mid sagittal line and inferiorly to the mid sagittal line until the lesser trochanter was palpable. A tag stitch was placed both in the superior and inferior limb of the capsular insertion. Along the acetabulum capsule was also released up to the mid sagittal 12:00 position. A portion of the labrum was resected. A saw was used to perform an osteotomy at the level of the intertrochanteric line and the junction of the superior femoral neck leaving approximately 1 finger breath of residual inferior neck above the lesser trochanter. A 2nd cut was made along the femoral neck at the base of the head and a napkin ring of neck was removed. Corkscrew was placed in the femoral head and the head was removed without difficulty. Retractors were then repositioned around the acetabulum. Residual labrum was resected and additional osteophytes were removed. A reamer that was 4 mm below the templated size was placed by hand in the acetabulum and it was reamed to centralize the acetabulum. It was then reamed up to 2 under the templated size and fluoroscopy was brought in to confirm the position of the reaming and depth of reaming. I reamed 1 under the anticipated size. A trial cup was placed and noted that it was appropriately sized and fluoroscopy confirmed position and depth. The component was open and inserted without difficulty fluoroscopic imaging was used to confirm that the cup had been adequately seated and was well positioned. It was further stabilized with a screw. Neutral poly liner was placed. The cup was tested and noted to be stable. Attention was then directed to the femur. The femur was gently hyperextended additional capsular release was performed as needed in order to allow adequate visualization of the proximal femur with elevation of the femur. Patient was placed in a hyperextended slightly adducted position with maximum external rotation. Box osteotome was used to check for any residual neck as well as sclerotic bone along the trochanter. [place] pepper was placed in the femur. Additional broaching was performed. Canal finder was used to determine the alignment of the canal and position. Size 1 broach was placed. The canal was then appropriately broached up to the templated size as long as there was adequate stability of the broach and serial advancement of the broach without excessive impingement. Specific attention was directed at avoiding varus attempting to direct the distal aspect of the broach more anteriorly and avoiding excessive anteversion. Trial reduction showed acceptable range of motion, good stability, no posterior impingement, mandaen of leg length and appropriate lateral shuck. I checked both a standard offset and a lateralized offset and better with a lateralized offset. I also hyperflexed the hip and checked that there was no impingement anteriorly and there was good stability with flexion, adduction and internal rotation. Marcaine and Exparel were injected. The stem was placed without difficulty. Repeat trial reduction and x-ray showed acceptable overall position, length, and no evidence of the femoral fracture. Final head was placed. Wound was meticulously irrigated with normal saline. The hip was reduced and additional Exparel and Marcaine were injected. The capsule was closed with interrupted nonabsorbable sutures. The fascia of the tensor was closed with interrupted and running Vicryl. No drain was placed. Any tensor fascia dinesh muscle that appeared to be contused or injured which was a minimal amount was carefully resected. Capsule around the tensor was injected with Exparel and Marcaine. The skin was closed with barbed stitches for the subcutaneous tissue and skin. We also used surgical glue. The wound was dressed sterilely. Brief Betadine soak was also used and was meticulously irrigated with normal saline. Patient was transferred to recovery room in satisfactory condition. Complications: none Post-operative Condition: stable Disposition: Acute Care Plan for aftercare: The patient will be maintained on a standard total hip replacement protocol with weight bearing as tolerated and anterior hip precautions. The patient will receive Aspirin and sequential compression devices for DVT prophylaxis. The patient will be discharged home when safe for the home environment.
[2025-02-03] MEDS: CEFAZOLIN 2 GM/100 ML PREMIX 100 ML IV (08:05)
[2025-02-03] MEDS: TRANEXAMIC ACID 1,000 MG VIAL 1000 MG INJ ×2 (08:12→09:53)
--- NOTE | 2025-02-03 08:18 | SUR.OPER ---
Supine on padded [place] table with bilateral legs secured in padded positioning boots and suspended in positioning spars, operative leg in traction per surgeon. Head on one pillow. Arm on non-operative side secured on padded armboard <90 degrees abduction. Arm on operative side padded and resting across chest then secured with tape over sheet. Padded perineal post in place per surgeon.
[2025-02-03] MEDS: BUPIVACAINE LIPOSOME 266 MG/20 ML VIAL INJ (08:27)
[2025-02-03] MEDS: BUPIVACAINE 0.25% W/ EPI 30 ML VIAL 60 ML INJ (08:28)
[2025-02-03] MEDS: OXYCODONE IR 5 MG TABLET PO (11:28)
--- NOTE | 2025-02-03 11:43 | PT-IP ANOTE ---
PT receives call from PACU around 1045 and pt not yet ready. PT calls down an hour later and pt still not quite ready for PT. PT will check back with nsg in about 20 minutes to see how pt is doing.
--- NOTE | 2025-02-03 12:17 | SUR.PHASEII ---
patient reports that I feel like I have something in the back of my throat. this rn looked in patients mouth and noticed his uvula is swollen and Ros Bean CRNA notified. patient denies any trouble swallowing. Patient denies any difficulty breathing. patient denies any shortness of breath. patient reports that he is able to maintain his own secretions. solumedrol 125mg IV verbal order from Ros Bean CRNA and read back ro be given to the patient.
[2025-02-03] MEDS: methylPREDNISolone 125 MG/2 ML VIAL IV (12:24)
--- NOTE | 2025-02-03 13:27 | PT.IIE ---
Current Diagnoses Unilateral primary osteoarthritis, left hip (02/03/25) Surgery Performed Operation Date: 02/03/25 07:45 Actual Procedures p Total Hip Arthroplasty/Anterior Approach(Left) - Olivia White MD Surgical History (Last Updated 01/25/25 @ 09:05 by Maria Esther Lackey, RN) H/O: knee surgery History of prostate biopsy Medical History (Last Updated 01/25/25 @ 09:14 by Maria Esther Lackey RN) [place] disease of lumbar spine Benign prostatic hyperplasia with lower urinary tract symptoms Chicken pox (1953) Chronic bilateral low back pain without sciatica Chronic left hip pain Chronic thoracic back pain CKD (chronic kidney disease) stage 3, GFR 30-59 ml/min Elevated BUN Elevated PSA (2011) Excessive daytime sleepiness Fatigue Giant comedone H/O agent [place] exposure Hearing loss (1995) Hearing loss History of COVID-19 (05/2024) History of sepsis History of sepsis (08/14/24) HTN (hypertension) Hx of acute cholangitis Lumbar degenerative disc disease Lumbar radiculopathy Lumbar spinal stenosis Lumbar spondylosis Measles Mumps (1956) Normocytic anemia, not due to blood loss RBBB (right bundle branch block) Secondhand smoke exposure Shoulder pain (05/2014) Strain of muscle, fascia and tendon of lower back, initial encounter Tinnitus, bilateral Urinary stone Vertigo (1997) Physical Therapy Inpatient Evaluation/Re-Eval M1 PT/OT-IP Prior Functional Status Start: 02/03/25 11:41 Freq: NEEDED Status: Active Protocol: Document 02/03/25 12:50 MB (Rec: 02/03/25 13:27 MB [id number]) Medical Review Prior Functional Status Medical History Reviewed Yes Diet/Fluid Consistency Regular Communication [place] Mobility and Gait I Activities of Daily Living and IADL's I Social History Household Members spouse Living Arrangements House Number of Floors (Floors) One Floor Number of Stairs To Enter/Railing? 1 step with doorway/bar to hold onto to enter home Home Environment Standard Height Toilet,Walk in Shower Home Equipment Front Wheel Walker,Straight Cane,Hand Held Shower,Grab Bars In Shower Employment Status Retired M2 PT-IP Current Condition Start: 02/03/25 11:41 Freq: NEEDED Status: Active Protocol: Document 02/03/25 12:50 MB (Rec: 02/03/25 13:27 MB [id number]) Physical Therapy Current Condition Current Condition Evaluation Date 02/03/25 Treatment Diagnosis Left anterior DEAN M3 PT-IP Subjective Start: 02/03/25 11:41 Freq: NEEDED Status: Active Protocol: Document 02/03/25 12:50 MB (Rec: 02/03/25 13:27 MB [id number]) Subjective Physical Therapy Visit Type Type Initial Evaluation Visit Start Time 12:50 Visit Stop Time 13:10 Notes Negative orthostatics with nsg Number of CARBON SETTER Visits 0 Physical Therapy Visit Comments Patient Comments Pt is pleasant, ready to go home Therapy Pain Assessment Pain When Pain Assessed At Rest Pain Present Pain Present Pain Reported Location Left Hip Intensity 1 Scale Used Numeric (0 - 10) M4 PT-IP Mobility and Gait Start: 02/03/25 11:41 Freq: NEEDED Status: Active Protocol: Document 02/03/25 12:50 MB (Rec: 02/03/25 13:27 MB [id number]) PT-Bed Mobility Assessment Supine to Sit Supine to Sit Independent Scooting Scooting to Edge of Bed Independent Scooting Up and Down in Bed Independent PT-Transfer Assessment Sit to and From Stand Sit to and from Stand Standby Assistance,Use of Upper Extremities Equipment Transfer Assistive Device Gait Belt,Front Wheeled Walker Orthotic/Prosthetic Devices or Brace: No Transfers Transfer Destination Bed Transfer Technique Ambulation Transfer Ability Level of Assist Standby Assistance Comments Mobility Comments Cues to push up from the bed and to reach back for it Gait Assessment Gait Gait Assistance Required: Standby Assistance Distance (Feet) 80 Able to Maintain Weight Bearing Status Yes During Gait Assistive Devices Assistive Device Gait Belt,Front Wheeled Walker Orthotic/Prosthetic Devices or Brace: No Gait Deviations General Gait Pattern Antalgic,Decreased Stride Length,Decreased Feet Clearance,Step-to Gait Factors Limiting Gait Function Factors Limiting Gait Function Decreased Strength,Limited Range of Motion,Pain Stair Climbing Assessment Comments Stair Climbing Comments PT demos stepping up one step with right foot first ascend and how can move the walker and bring it back around to pt after he is in the house, pt to hold onto doorway. This cannot be replicated in PACU for him to practice and pt and understand and feel okay about him doing this at d/c PT-Balance Assessment Sitting Balance and Reactions Static Sitting Balance Ability Good Dynamic Sitting Balance Ability Good Standing Balance and Reactions Static Standing Balance Ability Good Dynamic Standing Balance Ability Good Device Used RW M5 PT-IP Objective Assessments Start: 02/03/25 11:41 Freq: NEEDED Status: Active Protocol: Document 02/03/25 12:50 MB (Rec: 02/03/25 13:27 MB [id number]) Orientation Orientation/Cognition Level of Alertness Alert Orientation Name,Birthday,Situation Language Function Ability Hard of Hearing Safety Awareness Decreased Safety Awareness Memory Description No Deficits Noted Gross Range of Motion Upper Extremity ROM Assessment Within Functional Limits Lower Extremity ROM Assessment Left Impaired Impairments Left hip and knee limited with HS immediately post-op but he is able to start a HS in supine Strength Upper Extremity Strength Assessment Within Functional Limits Lower Extremity Strength Assessment Left Impaired Comments Strength Comments Left hip and knee functional weakness post-op Coordination Assessment Gross Coordination Gross Coordination Impaired Sensation Assessment Comments Sensation Comments Pt reports post-op sensation is improving M6 PT-IP Treatment Start: 02/03/25 11:41 Freq: NEEDED Status: Active Protocol: Document 02/03/25 12:50 MB (Rec: 02/03/25 13:27 MB [id number]) Physical Therapy Treatment Exercises Exercises Ankle Pumps,Gluteal Sets,Quad Sets,Heel Slides Education Education Provided Weight Bearing Status,Post-Op Packet Other Treatments Other Treatment Performed PT speaks with Dr. White before seeing pt about the hospital no longer having anterior hip precautions/per protocol and she clears PT to only teach patient to avoid falls as well as be mindful about extreme ranges/ hyperextension. Dr. White does not add any precautions into order set and PT clears that PT does not need to teach. M7 PT-IP Assessment and Plan Start: 02/03/25 11:41 Freq: NEEDED Status: Active Protocol: Document 02/03/25 12:50 MB (Rec: 02/03/25 13:27 MB [id number]) PT Summary Assessment and Plan Potential Rehabilitation Potential Good Status of Condition at Evaluation Evolving Summary Impairments Pain,ROM,Strength,Balance, Coordination,Gait,Activity Tolerance Progress Towards Goals Progressing Toward Goals Assessment Summary Pt is a pleasant 79 y/o male presenting with good mobility same day left anterior DEAN. Per Dr. White, there are no precautions to teach and ed pt about safety, reducing fall risk and walking with reciprocal gait with RW. Ed pt and in use of ice, frequent walks in the house, post-op exercises and he has OPPT set-up. Pt mobilizes well in the PACU. No further skilled acute care needs. Frequency of Treatment Frequency Of Treatment Discharge Weight Bearing Status Weight Bearing Status Weight Bear as Tolerated Recommendations To Nursing Amount of Assist Needed Standby Assistance Discharge Recommendations PT Discharge Recommendations Home with Assistance, Outpatient PT Transportation Needs at Discharge Private Vehicle
== END 2025-02-03 13:37 | disposition home or self-care (01) ==
LOC: OR 06:21 → AC 06:22
PROVIDERS: PCP Family Medicine; Referring Provider Orthopaedic Surgery; Visit Provider Orthopaedic Surgery
PROC: (CPT 27130; principal; 2025-02-03 07:45)
DX: M16.12 Unilateral primary osteoarthritis, left hip (principal); Z87.891 Personal history of nicotine dependence; M25.752 Osteophyte, left hip
CPT/HCPCS: 27130; 73502; 73503; 76000; 97161; C1776; J0666; J0690; J1100; J1885; J2405; J2704; J2919; J3010

== ENCOUNTER 2025-02-23 10:05 | Observation (INO) | payer OTHER, SELFPAY ==
[2025-02-23] VITALS (11 sets, daily range): BP systolic 86–169; BP diastolic 45–87; PULSE 77–101; RESP 14–20; TEMP 36.2–37.7; O2SAT 92–100
--- NOTE | 2025-02-23 | DI.RAD.S_ITS ---
PROCEDURE: XR HIP W PEL IF DONE LT 2V INDICATIONS: INTRA OP LEFT HIP REDUCTION TECHNIQUE: 3 views of the hip were acquired. COMPARISON: [facility], [place], [place] HIP W PEL IF DONE LT 2V, 02/23/2025, 10:27. [facility], [place], XR HIP W PEL IF DONE LT 2V, 02/03/2025, 10:18. FINDINGS AND IMPRESSION: Intraoperative fluoroscopic images were obtained for left hip arthroplasty reduction, with expected positioning of the hardware. Please see operative for full details. Dictated by: Osmani Pettit M.D. on 02/23/2025 at 16:44 Approved by: Osmani Pettit M.D. on 02/23/2025 at 16:45
--- NOTE | 2025-02-23 10:07 | DI.RAD.S_ITS ---
PROCEDURE: XR HIP W PEL IF DONE LT 2V INDICATIONS: pain TECHNIQUE: 3 views of the hip were acquired. COMPARISON: [facility], [place], [place] HIP W PEL IF DONE LT 2V, 02/03/2025, 10:18. [facility], [id number] W PEL IF PERFORMED, 02/03/2025, 8:54. [facility], [place], XR PELVIS WITH LATERAL HIP LEFT, 02/14/2025, 15:59. FINDINGS AND IMPRESSION: Left hip arthroplasty dislocation. No acute displaced fracture otherwise. Right hip [id number] arthrosis. Lumbosacral and pubic symphysis degenerative changes also seen. Large fecal loading. Dictated by: Osmani Pettit M.D. on 02/23/2025 at 10:50 Approved by: Osmani Pettit M.D. on 02/23/2025 at 10:50
[2025-02-23] MEDS: HYDROMORPHONE 0.5 MG INJ IV ×2 (11:10→12:45)
[2025-02-23] MEDS: ONDANSETRON 4 MG/2 ML INJ IV (11:13)
--- NOTE | 2025-02-23 11:14 | ED.LOWEXIN ---
HPI - Extremity Injury (Lower) General Chief Complaint: Extremity Injury, Lower Stated Complaint: L. Hip Pain Time Seen by Provider: 02/23/25 11:13 Source: EMS Mode of arrival: Wheelchair History of Present Illness HPI Narrative: 79-year-old gentleman who had his left hip replaced on February 03 due to arthritis comes in today with the acute pain and concerns for prosthetic dislocation. He and his both state that he was not doing anything and it ?just slipped out?. Related Data Home Medications Medication Instructions Recorded Confirmed acetaminophen 500 mg tablet 1,000 mg PO Q6H PRN Pain 01/25/25 02/23/25 Previous Rx's Medication Instructions Recorded lisinopril 30 mg tablet 30 mg PO BID #180 tabs 03/16/24 aspirin 81 mg tablet,delayed 81 mg PO BID #90 tabs 02/03/25 release oxycodone 5 mg capsule 5 mg PO Q6H PRN pain #30 caps 02/03/25 Allergies Allergy/AdvReac Type Severity Reaction Status Date / Time No Known Drug Allergies Allergy Unknown Verified 02/23/25 13:10 [NO KNOWN DRUG ALLERGIES] Review of Systems Review of Systems Narrative: Pertinent positive and negative findings as per HPI Patient History Medical History (Updated 02/23/25 @ 12:43 by Jael Montelongo MD) History of sepsis (08/14/24) History of COVID-19 (05/2024) RBBB (right bundle branch block) Chronic left hip pain History of sepsis Urinary stone Elevated BUN Hx of acute cholangitis Secondhand smoke exposure Benign prostatic hyperplasia with lower urinary tract symptoms Lumbar radiculopathy Strain of muscle, fascia and tendon of lower back, initial encounter Lumbar degenerative disc disease Lumbar spinal stenosis Lumbar spondylosis Baastrup disease of lumbar spine H/O agent [place] exposure Chronic bilateral low back pain without sciatica Chronic thoracic back pain Hearing loss Excessive daytime sleepiness CKD (chronic kidney disease) stage 3, GFR 30-59 ml/min HTN (hypertension) Giant comedone Fatigue Normocytic anemia, not due to blood loss Tinnitus, bilateral Chicken pox (1953) Hearing loss (1995) Measles Mumps (1956) Shoulder pain (05/2014) Vertigo (1997) Elevated PSA (2011) Surgical History (Updated 01/25/25 @ 09:05 by Maria Esther Lackey RN) History of prostate biopsy H/O: knee surgery Family History Mother Cancer Father MVA (motor vehicle accident) Other Hyperlipidemia Hypertension Social History marital status: household members: spouse occupational status: previously employed leisure activities: exercise Smoking Status: Former smoker alcohol intake: current frequency: 3-4 times per week duration: 45-60 minutes/day Smoking Status: Former smoker Exam Initial Vital Signs Initial Vital Signs: Vital Signs Temperature 97.6 F 02/23/25 10:25 Pulse Rate 77 02/23/25 10:25 Respiratory Rate 17 02/23/25 10:25 Blood Pressure 169/86 H 02/23/25 10:25 Pulse Oximetry 98 02/23/25 10:25 Oxygen Delivery Method Room Air 02/23/25 10:25 General: Alert appropriate in no acute distress Respiratory: Able to speak in full sentences, no obvious respiratory distress Skin: No obvious rashes, warm and dry Extremity: Left hip appears to be dislocated, left leg is foreshortened internally rotated. He is neurovascularly intact Neurologic: Grossly intact no obvious asymmetries or abnormalities Psych: appropriate insight and affect, cooperative Course Orders Ordered: Discontinued Medications Acetaminophen (Acetaminophen 325 Mg Tablet) 650 mg PO NOW ONE Stop: 02/23/25 13:32 Hydromorphone HCl (Hydromorphone 0.5 Mg Inj) 0.5 mg IV NOW ONE Stop: 02/23/25 11:09 Last Admin: 02/23/25 11:10 Dose: 0.5 mg Documented By: MPO Hydromorphone HCl (Hydromorphone 0.5 Mg Inj) 0.5 mg IV Q15MIN PRN PRN Reason: Pain, Last Admin: 02/23/25 12:45 Dose: 0.5 mg Documented By: AI Hydromorphone HCl (Hydromorphone 1 Mg Inj) 0 mg IV Q5MIN PRN PRN Reason: Pain, Mild (1-3) Hydroxyzine HCl (Hydroxyzine Hcl 25 Mg Tablet) 25 mg PO NOW ONE Stop: 02/23/25 12:37 Last Admin: 02/23/25 12:45 Dose: 25 mg Documented By: AI Sodium Chloride (Normal Saline 0.9%) 1,000 mls @ 150 mls/hr IV CONT FERNANDO Last Admin: 02/23/25 12:45 Dose: 150 mls/hr Documented By: SATYA Ondansetron HCl (Ondansetron 4 Mg/2 Ml Inj) 4 mg IV NOW ONE Stop: 02/23/25 11:10 Last Admin: 02/23/25 11:13 Dose: 4 mg Documented By: JASSI Oxycodone HCl (Oxycodone Ir 5 Mg Tablet) 5 mg PO PACUNOW PRN PRN Reason: Mild or moderate pain Vital Signs Vital signs: Vital Signs - 8 hr 02/23/25 10:25 Temperature 97.6 F Pulse Rate 77 Respiratory Rate 17 Blood Pressure 169/86 H Pulse Oximetry 98 Oxygen Delivery Method Room Air MDM - Extremity Injury (Lower) Lab Data 02/23/25 10:21 02/23/25 10:21 Labs: Lab Results 02/23/25 Range/Units 10:21 WBC 7.0 (4.5-11.0) X10^3/uL RBC 3.82 L (4.5-5.9) X10^6/uL Hgb 11.8 L (13.5-17.5) g/dL Hct 35.1 L (41-53) % MCV 91.9 (80-100) fL MCH 31.0 (26-34) PG MCHC 33.7 (30-36) % RDW 13.5 (11.6-14.8) % Plt Count 295 (150-400) X10^3/uL Neut % (Auto) 54.6 (50-75) % Lymph % (Auto) 35.3 (25-40) % Carlton % (Auto) 6.2 (3-14) % Eos % (Auto) 3.4 (2-4) % Baso % (Auto) 0.5 (0-2) % Neut # (Auto) 3800 (5174-7405) /uL Lymph # (Auto) 2500 (6281-3024) /uL Carlton # (Auto) 400 (0-900) /uL Eos # (Auto) 200 (0-450) /uL Baso # (Auto) 0 (0-100) /uL Sodium 140 (137-145) mmol/L Potassium 4.2 (3.4-5.1) mmol/L Chloride 110 H (98-107) mmol/L Carbon Dioxide 16 L (22-32) mmol/L BUN 38 H (9-20) mg/dL Creatinine 1.53 H (0.66-1.25) mg/dL Estimated GFR 47 L (>60) mL/min BUN/Creatinine Ratio 24.8 H (6-22) Glucose 129 H (80-110) mg/dL Calcium 10.0 (8.4-10.2) mg/dL Total Bilirubin 0.5 (0.2-1.3) mg/dL AST 29 (17-59) IU/L ALT 25 (<50) IU/L Alkaline Phosphatase 58 (38-126) U/L Total Protein 6.8 (6.3-8.2) g/dL Albumin 4.1 (3.5-5.0) g/dL Globulin 2.7 (1.7-4.1) g/dL Albumin/Globulin Ratio 1.5 (1.0-2.8) MDM Narrative Medical decision making narrative: 79-year-old gentleman who is 20 days post left hip replacement with spontaneous dislocation. X-ray confirms spontaneous posterior hip dislocation with the newly placed prosthetic joint. Pain has been adequately controlled, care is reviewed with his surgeon, Dr. White. She will take him to the operating room later this afternoon to relocate the hip. Patient is notified of plans and findings. We will have a remain NPO for the time being Discharge Plan Departure Patient Disposition: Admitted to Surgery Clinical Impression: Dislocation of hip, left, closed Qualifiers: Encounter type: initial encounter Qualified Code(s): S73.005A - Unspecified dislocation of left hip, initial encounter Admit Date/Time: 02/23/25 13:40 Admit Provider: Olivia White
[2025-02-23 12:43] LABS: Add Manual Diff / Slide Review NO; Basophils Absolute Auto 0 /uL (0-100); Basophils Percent Auto 0.5 % (0-2); Eosinophils Absolute Auto 200 /uL (0-450); Eosinophils Percent Auto 3.4 % (2-4); Hematocrit 35.1 % (41-53); Hemoglobin 11.8 g/dL (13.5-17.5); Lymphocytes Absolute Auto 2500 /uL (1100-4500); Lymphocytes Percent Auto 35.3 % (25-40); Mean Corpuscular HGB Conc 33.7 % (30-36); Mean Corpuscular Volume 91.9 fL (80-100); Monocytes Absolute Auto 400 /uL (0-900); Monocytes Percent Auto 6.2 % (3-14); Neutrophils Absolute Auto 3800 /uL (1500-7000); Neutrophils Percent Auto 54.6 % (50-75); Platelet Count 295 X10^3/uL (150-400); Red Blood Cell Count 3.82 X10^6/uL (4.5-5.9); Red Cell Distribution Width 13.5 % (11.6-14.8)
[2025-02-23] MEDS: SODIUM CHLORIDE 0.9% 1,000 ML 150 ML IV (12:45)
[2025-02-23] MEDS: hydrOXYzine HCL 25 MG TABLET PO (12:45)
[2025-02-23 12:49] LABS: Alanine Aminotransferase 25 IU/L (<50); Albumin 4.1 g/dL (3.5-5.0); Albumin Globulin Ratio 1.5 (1.0-2.8); Alkaline Phosphatase 58 U/L (38-126); Aspartate Aminotransferase 29 IU/L (17-59); BUN Creatinine Ratio 24.8 (6-22); Bilirubin Total 0.5 mg/dL (0.2-1.3); Blood Urea Nitrogen 38 mg/dL (9-20); Carbon Dioxide 16 mmol/L (22-32); Chloride 110 mmol/L (98-107); Estimated Glomerular Filt Rate 47 mL/min (>60); Globulin 2.7 g/dL (1.7-4.1); Glucose 129 mg/dL (80-110); HEMOLYSIS < 15 (0-50); Potassium 4.2 mmol/L (3.4-5.1); Sodium 140 mmol/L (137-145); Total Protein 6.8 g/dL (6.3-8.2)
--- NOTE | 2025-02-23 12:55 | PM.PREOP ---
Pre-operative Note Interval Note History & Physical reviewed/Exam performed by Physician: Yes Changes to H&P: Yes H&P completed within 30 days and has changed as indicated here:: He was at home today he was working out on his elliptical and then he was in an awkward position getting up related to a bar stool when he slipped a little and noted the acute onset of difficulty with his left hip. He was unable to put weight on his left hip and he was brought to the emergency room where he was noted to have a left hip dislocation. He had a recent left total hip arthroplasty. He was doing fine prior to the dislocation. He has actually been ahead of physical therapy. He was being brought back to the operating room for a closed reduction his left hip.
--- NOTE | 2025-02-23 13:00 | PM.OP.1 ---
Operative Date/Time/Diagnoses Date of procedure: 02/23/25 Time of procedure: 13:01 Pre-op diagnosis: left hip dislocation after left total hip arthroplasty Post-op diagnosis: same Procedure & Clinicians Procedure: Closed reduction left hip Same procedure as scheduled: Yes Indications: This is a 79-year-old gentleman who had a recent left total hip arthroplasty from an anterior approach. He was at home today when he got twisted into an awkward position after working out on the elliptical and then being up at a bar stool and he felt a thunk in his hip and had difficulty with weight-bearing. He was seen in the emergency room where he was noted to have a dislocated left hip. Radiographs suggest a posterior dislocation after an anterior total hip arthroplasty. Preoperatively he was noted to have somewhat atypical anatomy with fairly high offset and has a lateralized hip prosthesis. He was brought to the operating room for closed reduction. Surgeon: Olivia White Click Yes if Unassisted: Yes Anesthesia Type: General Operative Notes Findings: Hip fairly easily reduced with high flexion longitudinal traction and internal rotation, no obvious impingement Closure Type: not applicable Specimen(s): none sent Blood products transfused: none Procedure in detail: Patient was brought to the operating room. A time-out was performed. The underwent induction of anesthesia. They are carefully positioned on the OR table. The underwent a closed reduction maneuver consisting of high flexion longitudinal traction and internal and external rotation. The hip was fairly easy to reduce. He was placed through a range of motion which included flexion 100 and 10? and he appeared stable with internal and external rotation. He did have fairly mobile tissue in low muscle tension. Reduction was fairly easy. He tolerated the procedure well. He was transferred to recovery room in satisfactory condition. Complications none. Complications: none Post-operative Condition: stable Disposition: same day surgery Plan for aftercare: Weight-bearing as tolerated on the left lower extremity. Follow up in the office in 10 days or so. Ambulate as tolerated avoid high flexion activities.
--- NOTE | 2025-02-23 13:02 | SUR.OPER ---
Supine on padded OR bed, head on pillow, arms secured on padded arm boards at <90 degrees abduction, legs uncrossed, safety belt at thigh, tape over blanket over lower legs.
--- NOTE | 2025-02-26 11:59 | PM.PREOP ---
Pre-operative Note Interval Note History & Physical reviewed/Exam performed by Physician: Yes Changes to H&P: Yes H&P completed within 30 days and has changed as indicated here:: He was at home today. He has really not having any pain so he hyperflexed his hip to put his sock on on the left and felt a pop. Came to the emergency room. His x-rays showed left hip posterior dislocation. He consents to closed reduction left hip
--- NOTE | 2025-02-26 12:00 | P.OP_ITS ---
Operative Date/Time/Diagnoses Date of procedure: 02/26/25 Time of procedure: 12:00 Pre-op diagnosis: Left hip posterior dislocation after anterior total hip arthroplasty Post-op diagnosis: same Procedure & Clinicians Procedure: Left hip closed reduction Same procedure as scheduled: Yes Indications: This is a 79-year-old who has a history of left total hip arthroplasty from an anterior approach. He had a posterior dislocation a few days ago. He was at home when he hyperflexed his hip and felt pop. He was seen in the emergency room and was felt to be a candidate for closed reduction of his left hip. He is having minimal hip pain. The procedure alternatives risks benefits and complications discussed in detail. We discussed avoiding high flexion. We discussed strengthening exercises. I also told him we can get a CT scan to check component position as this is a 2nd episode of instability postoperatively in the short term. The procedure alternatives risks benefits and complications were discussed. Surgeon: Olivia White Click Yes if Unassisted: Yes Anesthesia Type: Sedation Operative Notes Findings: Left hip reducible with longitudinal traction and flexion Closure Type: not applicable Specimen(s): none sent Procedure in detail: Patient was seen in the emergency room. A time-out was performed. He was sedated by Dr. Dickerson with respiratory therapy and respiratory support. His hip was placed in a high flexion position longitudinal traction was applied and it was reduced without difficulty. Postreduction x-rays both in AP and a cross- table lateral showed acceptable position. He tolerated the procedure well. Complications none. Complications: none Post-operative Condition: stable Disposition: same day surgery Plan for aftercare: Weightbear as tolerated on the left lower extremity. He is going to avoid high hip flexion. I have asked for consultation from both physical therapy and occupational therapy to teach posterior hip precautions and specific avoidance of high flexion. I also wrote for a CT scan of his left hip so that we can look good component position to see if he needs adjustment of his component positi oned in order to improve his overall stability. He can be weight-bearing as tolerated on the left lower extremity. I think we need to do both anterior and posterior precautions but particularly posterior precautions avoiding high hip flexion. He is currently in physical therapy. She had have a follow up appointment in the office in about 10 days or so.
== END 2025-02-23 14:45 | disposition home or self-care (01) ==
LOC: ED 12:43 → AC 13:41
PROVIDERS: Admitting Provider Orthopaedic Surgery; Emergency Provider Emergency Medicine; PCP Family Medicine; Referring Provider Emergency Medicine; Visit Provider Orthopaedic Surgery
PROC: (CPT 27266; principal; 2025-02-23 13:00)
DX: T84.021A Dislocation of internal left hip prosthesis, initial encounter (principal); Z87.891 Personal history of nicotine dependence
CPT/HCPCS: 27266; 73502; 76000; 80053; 85025; 96374; 96375; 96376; 99284; G0378; A9270; J0330; J1171; J2405; J2704; J3010

== ENCOUNTER 2025-02-26 10:10 | Emergency (ER) | payer OTHER, SELFPAY ==
[2025-02-26] VITALS (35 sets, daily range): BP systolic 117–180; BP diastolic 66–96; PULSE 59–75; RESP 10–24; TEMP 36.6; O2SAT 93–100; BMI 30.4
--- NOTE | 2025-02-26 10:26 | ED_ITS ---
HPI - Extremity Injury (Lower) General Chief Complaint: Extremity Injury, Lower Stated Complaint: L Hip Dislocated Time Seen by Provider: 02/26/25 10:26 Source: patient, EMS, RN notes reviewed and old records reviewed Mode of arrival: EMS Limitations: no limitations History of Present Illness HPI Narrative: 79-year-old male who had his left hip replaced on February 03 due to arthritis presentation on 02/23/2025 for hip dislocation was taken to the OR by Orthopedic surgery for reduction. States he was bending over to put on his sock today and felt like it popped out. Patient denies any falls or injuries. He denies any other symptoms. States he takes lisinopril for blood pressure. States he was currently taking 81 mg aspirin twice daily for DVT prevention but no other daily medications. Patient denies any other injuries or issues no numbness or tingling. He was currently seated in a flexed position with a his hip with his legs tied together by EMS he states this is pretty comfortable after the pain medications they gave. Related Data Home Medications Medication Instructions Recorded Confirmed acetaminophen 500 mg tablet 1,000 mg PO Q6H PRN Pain 01/25/25 02/23/25 Previous Rx's Medication Instructions Recorded lisinopril 30 mg tablet 30 mg PO BID #180 tabs 03/16/24 aspirin 81 mg tablet,delayed 81 mg PO BID #90 tabs 02/03/25 release oxycodone 5 mg capsule 5 mg PO Q6H PRN pain #30 caps 02/03/25 Allergies Allergy/AdvReac Type Severity Reaction Status Date / Time No Known Drug Allergies Allergy Unknown Verified 02/23/25 13:10 [NO KNOWN DRUG ALLERGIES] Review of Systems Review of Systems ROS Unobtainable: All systems reviewed & are unremarkable except as noted in HPI and below Patient History Medical History History of sepsis (08/14/24) History of COVID-19 (05/2024) RBBB (right bundle branch block) Chronic left hip pain History of sepsis Urinary stone Elevated BUN Hx of acute cholangitis Secondhand smoke exposure Benign prostatic hyperplasia with lower urinary tract symptoms Lumbar radiculopathy Strain of muscle, fascia and tendon of lower back, initial encounter Lumbar degenerative disc disease Lumbar spinal stenosis Lumbar spondylosis Baastrup disease of lumbar spine H/O agent [place] exposure Chronic bilateral low back pain without sciatica Chronic thoracic back pain Hearing loss Excessive daytime sleepiness CKD (chronic kidney disease) stage 3, GFR 30-59 ml/min HTN (hypertension) Giant comedone Fatigue Normocytic anemia, not due to blood loss Tinnitus, bilateral Chicken pox (1953) Hearing loss (1995) Measles Mumps (1956) Shoulder pain (05/2014) Vertigo (1997) Elevated PSA (2011) Surgical History History of prostate biopsy H/O: knee surgery Family History Mother Cancer Father MVA (motor vehicle accident) Other Hyperlipidemia Hypertension Social History marital status: household members: spouse occupational status: previously employed leisure activities: exercise Smoking Status: Former smoker alcohol intake: current frequency: 3-4 times per week duration: 45-60 minutes/day Smoking Status: Former smoker Exam Narrative Exam Narrative: GENERAL: Alert and oriented x three, male in mild distress HEENT: Head normocephalic, atraumatic, EOMI, pupils reactive, face symmetric, moist mucous membranes, normal oropharynx. NECK: Supple, full range of motion CARDIOVASCULAR: Regular rate and rhythm without murmurs, rubs or gallops. No tachypnea or accessory muscle use. RESPIRATORY: Breath sounds equal bilaterally, no wheezes rales or rhonchi. ABDOMEN: Soft, nontender. Normoactive bowel sounds all 4 quadrants. No guarding or rebound, rigidity, no mass : No CVA tenderness EXTREMITIES: Decreased range of motion of left hip, patient's shortened in ternally rotated. Patient has 2+ dorsalis pedis. Sensation throughout can dorsiflex plantar flex his foot without issue. No clubbing or edema. Neurovascularly intact NEUROLOGICAL: Cranial nerves II through XII grossly intact. Moving all extremities SKIN: Warm, dry, no petechiae, no rashes or lesions. Initial Vital Signs Initial Vital Signs: Vital Signs Pulse Rate 74 02/26/25 10:17 Respiratory Rate 12 02/26/25 10:17 Pulse Oximetry 100 02/26/25 10:17 Procedures Procedural Sedation Consent signed: Yes Time out performed: Yes Indication: fracture/dislocation reduction (Hip dislocation) ASA Class: II Mallampati Airway Classification: Class II Time of Last PO Intake: 11:22 IV Propofol dose (mg): 75 ED Sedation Level: Moderate (Concious) Patient Tolerated Procedure: Well Complications: hypoventilation Interventions: Airway repositioned and Assist by BVM Course Orders Ordered: Discontinued Medications Propofol (Propofol 200 Mg/20 Ml Vial) 95 mg 1 mg/kg (95 mg) IV NOW ONE Stop: 02/26/25 11:11 Last Admin: 02/26/25 11:43 Dose: 75 mg Documented By: ARMANDO Vital Signs Vital signs: Vital Signs - 8 hr 02/26/25 10:17 02/26/25 10:19 02/26/25 10:30 Temperature 97.8 F Pulse Rate 74 63 Respiratory Rate 12 18 Blood Pressure 159/96 H 178/94 H Pulse Oximetry 100 100 Oxygen Delivery Method Room Air 02/26/25 10:30 02/26/25 11:00 02/26/25 11:01 Temperature Pulse Rate 67 62 Respiratory Rate 14 16 Blood Pressure 145/67 H Pulse Oximetry 100 100 Oxygen Delivery Method 02/26/25 11:01 02/26/25 11:28 02/26/25 11:30 Temperature Pulse Rate 61 67 64 Respiratory Rate 13 16 Blood Pressure 145/67 H Pulse Oximetry 100 95 100 Oxygen Delivery Method 02/26/25 11:31 02/26/25 11:31 02/26/25 11:33 Temperature Pulse Rate 65 63 Respiratory Rate 21 10 L Blood Pressure 180/90 H 180/90 H Pulse Oximetry 93 100 Oxygen Delivery Method 02/26/25 11:35 02/26/25 11:36 02/26/25 11:36 Temperature Pulse Rate 61 62 Respiratory Rate 16 17 Blood Pressure 134/75 134/75 Pulse Oximetry 99 99 Oxygen Delivery Method 02/26/25 11:40 02/26/25 11:40 02/26/25 11:40 Temperature Pulse Rate 62 63 Respiratory Rate 22 Blood Pressure 133/79 133/79 Pulse Oximetry 99 99 Oxygen Delivery Method Room Air 02/26/25 11:52 02/26/25 12:00 02/26/25 12:30 Temperature Pulse Rate 63 59 L 65 Respiratory Rate 16 13 Blood Pressure Pulse Oximetry 99 99 Oxygen Delivery Method 02/26/25 12:32 02/26/25 12:32 02/26/25 12:36 Temperature Pulse Rate 67 Respiratory Rate Blood Pressure 150/76 H 152/75 H Pulse Oximetry 100 Oxygen Delivery Method 02/26/25 12:36 02/26/25 12:45 02/26/25 12:45 Temperature Pulse Rate 61 61 Respiratory Rate 14 17 Blood Pressure 149/78 H Pulse Oximetry 99 99 Oxygen Delivery Method 02/26/25 12:50 02/26/25 12:50 02/26/25 12:55 Temperature Pulse Rate 60 Respiratory Rate 14 Blood Pressure 158/76 H 126/85 Pulse Oximetry 99 Oxygen Delivery Method 02/26/25 12:55 02/26/25 13:00 02/26/25 13:01 Temperature Pulse Rate 61 61 Respiratory Rate 16 16 Blood Pressure 147/75 H Pulse Oximetry 99 100 Oxygen Delivery Method 02/26/25 13:01 02/26/25 13:05 02/26/25 13:05 Temperature Pulse Rate 60 61 Respiratory Rate 17 14 Blood Pressure 136/80 Pulse Oximetry 99 99 Oxygen Delivery Method 02/26/25 13:11 02/26/25 13:11 02/26/25 13:15 Temperature Pulse Rate 63 Respiratory Rate 21 Blood Pressure 134/70 150/76 H Pulse Oximetry 99 Oxygen Delivery Method 02/26/25 13:15 02/26/25 13:21 02/26/25 13:21 Temperature Pulse Rate 63 62 Respiratory Rate 15 14 Blood Pressure 143/66 H Pulse Oximetry 100 99 Oxygen Delivery Method 02/26/25 13:25 02/26/25 13:25 02/26/25 13:30 Temperature Pulse Rate 63 63 Respiratory Rate 19 23 Blood Pressure 133/66 Pulse Oximetry 98 100 Oxygen Delivery Method 02/26/25 13:31 02/26/25 13:31 02/26/25 13:36 Temperature Pulse Rate 66 Respiratory Rate 15 Blood Pressure 117/70 126/91 H Pulse Oximetry 100 Oxygen Delivery Method 02/26/25 13:36 02/26/25 13:41 02/26/25 13:41 Temperature Pulse Rate 68 65 Respiratory Rate 18 18 Blood Pressure 158/77 H Pulse Oximetry 100 99 Oxygen Delivery Method 02/26/25 13:46 02/26/25 13:46 02/26/25 13:50 Temperature Pulse Rate 65 Respiratory Rate 21 Blood Pressure 154/72 H 158/75 H Pulse Oximetry 100 Oxygen Delivery Method 02/26/25 13:50 02/26/25 13:56 02/26/25 13:56 Temperature Pulse Rate 63 64 Respiratory Rate 15 24 Blood Pressure 129/74 Pulse Oximetry 100 100 Oxygen Delivery Method 02/26/25 14:00 Temperature Pulse Rate 75 Respiratory Rate 22 Blood Pressure Pulse Oximetry Oxygen Delivery Method MDM - Extremity Injury (Lower) MDM Narrative Medical decision making narrative: 79-year-old male with recurrent hip dislocation had left hip replacement on 02/03/2025. Left hip x-ray shows left hip dislocation, no fracture Repeat films shows left prosthetic hip relocation after procedural sedation. No fracture CT left lower extremity shows left prosthetic hip unremarkable hardware without a cause for recurrent dislocation additional findings fat containing periumbilical hernia significant lumbar spine degenerative change sacroiliac joint effusion left worse than right diverticulosis without diverticulitis enlarged prostate 6 mm bladder stone and mild fat containing left inguinal hernia. Spoke with Dr. White orthopedic surgery at 10:33 a.m. we will review images as they are not done yet but suspect dislocation may do reduction here in the de partment dependent but Dr. White is headed into the ER to see the patient. Dr. White in the department on 11:21 with plan for procedural sedation with myself and she will do the reduction with the attempt in the department. She states patient was pretty easy to reduce in the OR. If this goes well we will plan to have evaluation by PT and potentially discharge home if unable to obtain that may keep the patient overnight. Also notes that she may have him obtain CT of the area as well today. Patient had reduction by Dr. White with myself performing procedural sedation. Patient reduced fairly easily. Had brief hypoventilation/hypoxia which improved with airway repositioning and BVM. CT images were reviewed with patient, patient tolerated PT well has ambulated in the department they note patient can have a knee immobilizer as reminder but not required. They note he has been a little bit too aggressive with his physical therapy they recommend they canceled his appointment on Friday and talk to Dr. White about whether or not to continue physical therapy. Has not appointment on the 16 of March has [place] call Friday morning to see about rescheduling an appointment. Patient tolerated well has ambulated in the department with the physical therapy plan for outpatient follow up with Orthopedic surgery. Discharge Plan Departure Patient Disposition: Home Clinical Impression: Dislocation, hip Instructions: DI for Hip Dislocation -- Adult Activity Restrictions/Additional Instructions: Follow up with Dr. White, call Friday morning to set up a follow up appointment. Physical therapy recommends that you canceled your Friday physical therapy appointment and talk with Dr. White but whether or not to continue. Your CT of your hip shows some I incidental findings including a fat containing periumbilical area and mild fat containing left inguinal hernia lumbar spine d egenerative changes sacroiliac joint fusion left worse than right with diverticulosis without any signs of infection, enlarged prostate any 6 mm bladder stone. Avoid bending at the hip and knee. You can use the knee immobilizer as a reminder not to flexes your hip and knee. You do not have to wear this at all times you can remove it. I spoke with the physical therapist can be helpful but it was not required. Do not drive, perform hazardous activities or make any major decisions for the next 24 hours you received medications during your procedural sedation that are sedating. Prescriptions: No Action lisinopril 30 mg tablet 30 mg PO BID MDD 60mg Qty: 180 3RF acetaminophen 500 mg Tablet 1,000 mg PO Q6H PRN (Reason: Pain) oxycodone 5 mg capsule 5 mg PO Q6H PRN (Reason: pain) Qty: 30 0RF aspirin 81 mg tablet,delayed release (DR/EC) 81 mg PO BID Qty: 90 0RF Referrals: Olivia White MD [Physician] - Gael Dougherty DO [Primary Care Provider] - Stand Alone Forms: Patient Portal/API/Survey
--- NOTE | 2025-02-26 10:27 | DI.RAD.S_ITS ---
PROCEDURE: XR HIP W PEL IF DONE LT 2V INDICATIONS: hip popped out TECHNIQUE: AP pelvis with lateral view(s) of the left hip(s). COMPARISON: [facility], CR, XR HIP W PEL IF DONE LT 2V, 02/23/2025, 13:30. [facility], CR, XR HIP W PEL IF DONE LT 2V, 02/23/2025, 10:27. FINDINGS: Bones: The left prosthetic hip is dislocated superiorly and posteriorly. No associated fracture is seen. Moderate degenerative change can be seen of the contralateral right hip. Age-appropriate lower lumbar spine degenerative changes are noted. Soft tissues: The visualized bowel gas pattern is normal. No suspicious soft tissue calcifications. IMPRESSION: Left prosthetic hip dislocation. Dictated by: Jin Siu M.D. on 02/26/2025 at 9:50 Approved by: Jin Siu M.D. on 02/26/2025 at 9:51
--- NOTE | 2025-02-26 11:36 | DI.RAD.S_ITS ---
PROCEDURE: XR HIP W PEL IF DONE LT 2V INDICATIONS: post hip TECHNIQUE: AP pelvis with lateral view(s) of the left hip(s). COMPARISON: [facility], CR, XR HIP W PEL IF DONE LT 2V, 02/23/2025, 13:30. [facility], CR, XR HIP W PEL IF DONE LT 2V, 02/23/2025, 10:27. [facility], CR, XR HIP W PEL IF DONE LT 2V, 02/26/2025, 10:29. FINDINGS: Bones: The left prosthetic hip has now been relocated. No new fracture is seen. Soft tissues: The visualized bowel gas pattern is normal. No suspicious soft tissue calcifications. IMPRESSION: Left prosthetic hip relocation. Dictated by: Jin Siu M.D. on 02/26/2025 at 10:55 Approved by: Jin Siu M.D. on 02/26/2025 at 10:55
--- NOTE | 2025-02-26 11:36 | DI.CT.S_ITS ---
PROCEDURE: CT LE LT W CON INDICATIONS: hip recurrent hip dislocation TECHNIQUE: Noncontrast 3 mm axial sections acquired through the bony pelvis. Additional 3 mm axial sections acquired through the symptomatic hip joint, with coronal and sagittal reformats. COMPARISON: [facility], CT, CT ABDOMEN PELVIS WO CON, 10/22/2024, 7:20. [facility], CR, XR HIP W PEL IF DONE LT 2V, 02/26/2025, 11:26. [facility], CR, XR HIP W PEL IF DONE LT 2V, 02/26/2025, 10:29. [facility], CR, XR HIP W PEL IF DONE LT 2V, 02/23/2025, 13:30. [facility], CR, XR HIP W PEL IF DONE LT 2V, 02/23/2025, 10:27. FINDINGS: Image quality: There is artifact associated with the metallic hardware. Artifact from the metallic hardware is reduced by metal reconstruction algorithm. Bones: There is a left prosthetic hip. The hardware itself appears normal, without findings of failure or loosening. The prosthetic hip is not dislocated at this time. No definite fracture of the surrounding bones can be seen. No suspicious lytic or blastic lesions are seen. There are mild to mod degenerative changes of the contralateral right hip. Significant degenerative change of the lower lumbar spine can be seen. The sacroiliac joints demonstrate fusion, left worse than right. Soft tissues: No dilated loops of small bowel are seen. Colonic diverticulosis is seen, without findings of active diverticulitis. No free air or significant free fluid can be seen. The prostate is enlarged, measuring 5.7 cm transversely. There is a non-obstructing bladder stone seen layering dependently, as on series 5, image 44, measuring 6 mm. No bladder wall thickening is seen. A mild periumbilical hernia is seen, containing fat. There is a mild fat containing left inguinal hernia present. No enlarged inguinal or pelvic lymph nodes can be seen. IMPRESSION: Unremarkable left hip arthroplasty hardware, without a cause of recurrent dislocation identified. No surrounding bony fracture can be seen. Additional findings: Fat containing periumbilical hernia Significant lumbar spine degenerative change Sacroiliac joint fusion, left worse than right Diverticulosis, without active diverticulitis Enlarged prostate 6 mm bladder stone Mild fat containing left inguinal hernia Dictated by: Jin Siu M.D. on 02/26/2025 at 11:22 Approved by: Jin Siu M.D. on 02/26/2025 at 11:26
[2025-02-26] MEDS: propofoL 200 MG/20 ML VIAL 95 MG IV (11:43)
--- NOTE | 2025-02-26 12:01 | PC.NURSE ---
1129- procedural sedation to reduce dislocated hip, Dr White and Dr Dickerson at bedside, Dr Dickerson pushed 75mg propofol. Patient required some airway repositioning and bvm, no supplementary oxygen, patient handles procedure well. RT Carson at bedside
--- NOTE | 2025-02-26 14:20 | PT.IIE ---
Surgical History (Last Reviewed 02/26/25 @ 11:21 by Tere Dickerson DO) H/O: knee surgery History of prostate biopsy Medical History (Last Reviewed 02/26/25 @ 11:21 by Tere Dickerson DO) [place] disease of lumbar spine Benign prostatic hyperplasia with lower urinary tract symptoms Chicken pox (1953) Chronic bilateral low back pain without sciatica Chronic left hip pain Chronic thoracic back pain CKD (chronic kidney disease) stage 3, GFR 30-59 ml/min Elevated BUN Elevated PSA (2011) Excessive daytime sleepiness Fatigue Giant comedone H/O agent [place] exposure Hearing loss (1995) Hearing loss History of COVID-19 (05/2024) History of sepsis History of sepsis (08/14/24) HTN (hypertension) Hx of acute cholangitis Lumbar degenerative disc disease Lumbar radiculopathy Lumbar spinal stenosis Lumbar spondylosis Measles Mumps (1956) Normocytic anemia, not due to blood loss RBBB (right bundle branch block) Secondhand smoke exposure Shoulder pain (05/2014) Strain of muscle, fascia and tendon of lower back, initial encounter Tinnitus, bilateral Urinary stone Vertigo (1997) Physical Therapy Inpatient Evaluation/Re-Eval M1 PT/OT-IP Prior Functional Status Start: 02/26/25 14:28 Freq: Status: Discharge Protocol: Document 02/26/25 14:20 DLM (Rec: 02/26/25 14:49 DLM [id number]) Medical Review Prior Functional Status Medical History Reviewed Yes Diet/Fluid Consistency Regular Communication WFL, hard of hearing Mobility and Gait Independent without a device before hip surgery. He had advanced to a cane after his left DEAN. He was exercising on the elliptical. 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 He likes to go on his boat but had not returned to that yet. Activities of Daily Living and IADL's Independent without equipment. Prior Functional Level (Other details) he has a left hip dislocation 02/23/25 with surgical relocation, posterior dislocation. Anterior left hip DEAN 02/03/25 Social History Household Members spouse Number of Floors (Floors) One Floor Number of Stairs To Enter/Railing? one with rail Home Environment Standard Height Toilet,Walk in Shower Home Equipment Front Wheel Walker,Straight Cane,Hand Held Shower,Grab Bars In Shower Employment Status Retired M2 PT-IP Current Condition Start: 02/26/25 14:28 Freq: Status: Discharge Protocol: Document 02/26/25 14:20 DLM (Rec: 02/26/25 14:49 DL [id number]) Physical Therapy Current Condition Current Condition Evaluation Date 02/26/25 Treatment Diagnosis left hip dislocation, impaired gait Onset Date 02/23/25 M3 PT-IP Subjective Start: 02/26/25 14:28 Freq: Status: Discharge Protocol: Document 02/26/25 14:20 DLM (Rec: 02/26/25 14:49 DL [id number]) Subjective Physical Therapy Visit Type Type Initial Evaluation Visit Start Time 13:35 Visit Stop Time 14:20 Notes 45 min Number of HISTOLOGICAL ILLUSTRATOR Visits 0 Physical Therapy Visit Comments Patient Comments He doesn't want to dislocate his hip again. He was bending forward to put on his socks when his hip dislocated this time. Patient Goals go home Therapy Pain Assessment Pain When Pain Assessed During Mobility Pain Present Pain Present Denied Pain Location left hip Intensity 0 Scale Used Numeric (0 - 10) Description With Movement M4 PT-IP Mobility and Gait Start: 02/26/25 14:28 Freq: Status: Discharge Protocol: Document 02/26/25 14:20 DLM (Rec: 02/26/25 14:49 DL [id number]) PT-Bed Mobility Assessment Supine to Sit Supine to Sit Independent Sit to Supine Sit to Supine Independent Scooting Scooting to Edge of Bed Independent Scooting Up and Down in Bed Independent PT-Transfer Assessment Sit to and From Stand Sit to and from Stand Standby Assistance,Use of Upper Extremities Equipment Transfer Assistive Device Gait Belt,Front Wheeled Walker Transfers Transfer Destination Bed,Chair Transfer Technique Stand Step Pivot Transfer Ability Level of Assist Independent,Use of Upper Extremities Comments Mobility Comments training performed for sit- stand and bed mobility to use posterior hip precautions, pt educated to avoid sleeping on right side at home, good use of UE support demonstrated this visit Gait Assessment Gait Gait Assistance Required: Standby Assistance Distance (Feet) 80 Able to Maintain Weight Bearing Status Yes During Gait Assistive Devices Assistive Device Gait Belt,Front Wheeled Walker Gait Deviations General Gait Pattern Antalgic,Step-to Gait Factors Limiting Gait Function Factors Limiting Gait Function Decreased Activity Tolerance, Decreased Strength,Limited Range of Motion,Pain Comments Gait Comments intermittent catching of left foot on floor with use of knee immobilizer, he needed education to slow down his pace of gait and stay within the FWW, he describes no hip pain during gait PT-Balance Assessment Sitting Balance and Reactions Static Sitting Balance Ability Normal Dynamic Sitting Balance Ability Normal Standing Balance and Reactions Static Standing Balance Ability Good Dynamic Standing Balance Ability Good Device Used fWW M5 PT-IP Objective Assessments Start: 02/26/25 14:28 Freq: Status: Discharge Protocol: Document 02/26/25 14:20 DLM (Rec: 02/26/25 14:49 DLM [id number]) Orientation Orientation/Cognition Level of Alertness Alert Orientation Name,Age,Birthday,Month,Date, Year,Day of Week,Place, Situation Language Function Ability Hard of Hearing Safety Awareness Understands Safety Issues Memory Description No Deficits Noted Gross Range of Motion Upper Extremity ROM Assessment Within Functional Limits Lower Extremity ROM Assessment Left Impaired Impairments posterior hip precautions to prevent dislocation Strength Upper Extremity Strength Assessment Within Functional Limits Lower Extremity Strength Assessment Left Impaired Hip no maximal testing performed, able to lift LE onto bed with UE support Knee in knee immobilizer Coordination Assessment Gross Coordination Gross Coordination WNL Sensation Assessment Sensation Gross Sensation WNL Muscle Tone Muscle Tone WNL Yes M6 PT-IP Treatment Start: 02/26/25 14:28 Freq: Status: Discharge Protocol: Document 02/26/25 14:20 DLM (Rec: 02/26/25 14:49 DLM [id number]) Physical Therapy Treatment Exercises Exercises Ankle Pumps,Gluteal Sets,Quad Sets Education Education Provided Precautions,Weight Bearing Status,Post-Op Packet,Safety Equipment Issued Equipment Type and Company knee immobilizer in ED Other Treatments Other Treatment Performed Educated pt in using anterior and posterior hip precautions on left hip s/p dislocation x 2. Pt to stay on FWW at this time. He has a knee immobilizer on at this time to assist with hip precautions. His is present today and participates in education. Written post-op packet used to help with posterior hip precaution education. Education included instructions on car transfers. M7 PT-IP Assessment and Plan Start: 02/26/25 14:28 Freq: Status: Discharge Protocol: Document 02/26/25 14:20 DLM (Rec: 02/26/25 14:49 DLM [id number]) PT Summary Assessment and Plan Potential Rehabilitation Potential Good Status of Condition at Evaluation Evolving Summary Impairments ROM,Transfers,Gait,Activity Tolerance Progress Towards Goals Safe For Discharge Assessment Summary Philippe is alert and resting on stretcher in ED with his at bedside. He suffered a second left hip dislocation by bending to put on socks. His hip was relocated in ED under sedation. Pt reports no left hip pain at this time. He was educated in posterior hip precautions this visit per Dr White's orders. Pt asked to use FWW at all times to decrease his dislocation risks at this time. Extra time was taken to educate patient in his new hip precautions and how to use them during functional mobility. He has good functional strength and is able to complete his mobility with his new restrictions. He needs reminders to slow down and stay close to the fWW during gait. His is supportive and prepared to help at home. Since he has no pain at this time it is more challenging for him to use extra caution with his mobility and gait. He appears safe to discharge home when he is medically cleared. Recommend he hold out -pt PT until cleared by Dr White to resume. Frequency of Treatment Frequency Of Treatment Discharge Treatment Plan Other Recommendations and Next Treatment educate and training completed Focus this visit Precautions Posterior Hip Precautions No Hip Flexion > 90 degrees,No Hip Internal Rotation,No Hip Adduction Anterior Hip Precautions No Hip Extension,No Hip External Rotation Other Precautions new posterior and anterior hip precautions due to his hip dislocation on left after DEAN (anterior approach) Weight Bearing Status Weight Bearing Status Weight Bear as Tolerated Allowed Weight Bearing Amount (enter % left LE or #) (%) Recommendations To Nursing Amount of Assist Needed Standby Assistance Discharge Recommendations PT Discharge Recommendations Home with Assistance Other Discharge Recommendations resume out-pt PT when cleared by Dr White Equipment Needed for Home Before pt can get sock aide, live in housekeeper Discharge and shower seat at [facility] Transportation Needs at Discharge Private Vehicle - PT assist 1
--- NOTE | 2025-02-26 14:27 | CM.SWNOTE ---
ED TOBACCO WAREHOUSE AGENT Assessment Note Patient is 79 y/o male who presents to ED via EMS due to concern for left hip pain and concern for dislocation, patient has hx of dislocation and surgery on 02/23/25 and hx of hip surgery on 02/03/25. It is reported that patient was tearful upon presentation due to pain and made some SI statements. Patient's PCP is Dr. Dougherty, patient has [facility] insurance. TOBACCO WAREHOUSE AGENT enters room to meet with patient, patient presents as A/Ox4, present in room is patient's spouse Shanika. Patient gives consent for her to be present. Patient resides with spouse in [place], patient has local family including his son who lives in [facility]. Patient endorses he is independent with ADLs and drives at baseline. Patient states that he can ambulate independently but has FWW at home. TOBACCO WAREHOUSE AGENT asks about patient's SI statements, patient states he owns a gun and is is locked and secured at home. Patient states that he made a statement when he was frustrated and in pain that it would be easier if I shoot myself. Patient states that he does not intend on shooting himself, has no plans to do so, patient states I have a good life. Patient states he made these statements when he was in pain and now he is no longer in pain after his hip was put back into place in the ED. Patient states he regrets making those statements. Patient states that he is emotional about his upcoming 80th birthday as he states his mother at 77. Patient endorses plans to reach out to family, talk with family, re-engage with his jew and follow directions of PT to avoid further dislocations. Patient endorses he has been engaging in outpatient PT with [facility]. Ortho Surgeon Dr. Olivia White recommends PT eval in the ED, PT evaluates and determines it is safe to d/c to home. PT recommends canceling outpatient PT appt for Friday and getting further recommendation from Dr. White regarding proceeding further with outpt PT. TOBACCO WAREHOUSE AGENT provides patient and spouse with lists of DME resources. Patient denies any need for further resources. It is the opinion of this TOBACCO WAREHOUSE AGENT that patient is safe to d/c to home upon medical clearance. ED provider Dr. Dickerson indicates agreement and understanding. Plan: patient to d/c to home upon medical clearance. Patient to f/u with Dr. White and proceed with outpatient PT as recommended. Gissel Salazar, JIG FITTER
== END 2025-02-26 14:48 | disposition home or self-care (01) ==
PROVIDERS: Emergency Provider Emergency Medicine; PCP Family Medicine
DX: T84.021A Dislocation of internal left hip prosthesis, initial encounter (principal); Z96.642 Presence of left artificial hip joint
CPT/HCPCS: 27265; 73502; 73700; 97162; 97530; 99284; J2704

== ENCOUNTER 2025-03-06 11:31 | Emergency (ER) | payer OTHER, SELFPAY ==
[2025-03-06] VITALS (39 sets, daily range): BP systolic 113–158; BP diastolic 58–109; PULSE 56–80; RESP 12–24; TEMP 36.5; O2SAT 91–100
--- NOTE | 2025-03-06 11:41 | DI.RAD.S_ITS ---
PROCEDURE: XR HIP W PEL IF DONE LT 2V INDICATIONS: r/o L hip dislocation/felt pop TECHNIQUE: 2 views of the hip were acquired. COMPARISON: [facility], , XR HIP W PEL IF DONE LT 2V, 02/26/2025, 11:26. FINDINGS: Bones: Total left hip arthroplasty with posterior dislocation of the femoral component. No right hip fracture. Mild right hip joint space narrowing. Degenerative changes noted involving the lower lumbar spine Soft tissues: No suspicious soft tissue calcifications or masses. IMPRESSION: Right hip arthroplasty dislocation Approved by: Vadim Cardona M.D. on 03/06/2025 at 11:34
--- NOTE | 2025-03-06 12:17 | ED_ITS ---
HPI - Extremity Injury (Lower) General Chief Complaint: Extremity Injury, Lower Stated Complaint: Dislocated Hip Time Seen by Provider: 03/06/25 11:47 History of Present Illness HPI Narrative: 80-year-old male with left hip replacement surgery 02/03/2025 at [facility] by Dr. White, subsequently had prosthetic dislocation 02/23/2025 treated in the operating room by Dr. White, presented again 02/26/2025 with another left hip prosthetic dislocation, had reduction with IV propofol sedation in the emergency department with reduction performed by Dr. White then released home after postreduction CT scanning showed no prosthetic abnormalities, PT consult with left hip brace fitting, discharged with left hip brace. This morning at home put on his socks, was wearing his left hip brace while in a sitting position chair, slipped his left foot into a slipper, then felt clunking like sensation left hip similar to prior dislocation sensation. Does not recall leaning forward beyond 90? sitting position. Related Data Home Medications Medication Instructions Recorded Confirmed acetaminophen 500 mg tablet 1,000 mg PO Q6H PRN Pain 01/25/25 02/23/25 Previous Rx's Medication Instructions Recorded lisinopril 30 mg tablet 30 mg PO BID #180 tabs 03/16/24 aspirin 81 mg tablet,delayed 81 mg PO BID #90 tabs 02/03/25 release oxycodone 5 mg capsule 5 mg PO Q6H PRN pain #30 caps 02/03/25 Allergies Allergy/AdvReac Type Severity Reaction Status Date / Time No Known Drug Allergies Allergy Unknown Verified 02/23/25 13:10 [NO KNOWN DRUG ALLERGIES] Patient History Medical History History of sepsis (08/14/24) History of COVID-19 (05/2024) RBBB (right bundle branch block) Chronic left hip pain History of sepsis Urinary stone Elevated BUN Hx of acute cholangitis Secondhand smoke exposure Benign prostatic hyperplasia with lower urinary tract symptoms Lumbar radiculopathy Strain of muscle, fascia and tendon of lower back, initial encounter Lumbar degenerative disc disease Lumbar spinal stenosis Lumbar spondylosis [place] disease of lumbar spine H/O agent [place] exposure Chronic bilateral low back pain without sciatica Chronic thoracic back pain Hearing loss Excessive daytime sleepiness CKD (chronic kidney disease) stage 3, GFR 30-59 ml/min HTN (hypertension) Giant comedone Fatigue Normocytic anemia, not due to blood loss Tinnitus, bilateral Chicken pox (1953) Hearing loss (1995) Measles Mumps (1956) Shoulder pain (05/2014) Vertigo (1997) Elevated PSA (2011) Surgical History History of prostate biopsy H/O: knee surgery Family History Mother Cancer Father MVA (motor vehicle accident) Other Hyperlipidemia Hypertension Social History marital status: household members: spouse occupational status: previously employed leisure activities: exercise alcohol intake: current frequency: 3-4 times per week duration: 45-60 minutes/day Exam Narrative Exam Narrative: GENERAL: Well-developed patient, in mild distress. HEAD: Atraumatic. Normocephalic. EYES: Pupils equal round and reactive. Extraocular motions intact. No scleral icterus. No injection or drainage. ENT: Nose without bleeding, purulent drainage. Throat without erythema, tonsillar hypertrophy or exudate. Airway patent. NECK: Trachea midline. Non tender CARDIOVASCULAR: Regular rate and rhythm without murmurs, gallops, or rubs. RESPIRATORY: Clear to auscultation. Breath sounds equal bilaterally. No wheezes, rales, or rhonchi. GASTROINTESTINAL: Abdomen soft, non-tender, nondistended. EXTREMITIES: Left limb slight shortening compared to right limb, well-healed left lateral trochanteric area scar, some anterior hip tenderness. Good DP pulses and perfusion toes. No gross deformity of left mid distal thigh, knee, foreleg, ankle. BACK: Nontender without deformity or crepitance. No flank tenderness. NEURO: AOx3. Motor functions grossly nonfocal SKIN: No rash or erythema of visible areas Initial Vital Signs Initial Vital Signs: Vital Signs Pulse Rate 78 03/06/25 11:35 Pulse Oximetry 99 03/06/25 11:35 Procedures Orthopedic Joint Reduction Joint #1: Time of procedure: 13:24 Time Out Performed: Yes Side: left Joint Reduction Location: hip (Close left prosthetic hip dislocation redu ction.) Analgesia: procedural sedation Technique used: traction/counter-traction (Initial traction counter traction, then flexion at 90?, with internal and external rotation with palpable click, audible click, with extension there is no longer any limb length discrepancy, no gross deformity at the left hip.) Post-reduction neuro exam: intact Post-reduction vascular: intact Post Reduction X-Ray Obtained: Yes Post Reduction X-Ray Results: reduced Splint Applied: Yes (His left hip/thigh brace applied postprocedure.) Patient Tolerated Procedure: Well Additional Comments: Tolerated well, no airway interventions, returned to preprocedure baseline mental status. Procedural Sedation Time of procedure: 13:26 Consent signed: Yes Time out performed: Yes Indication: fracture/dislocation reduction Presedation Evaluation: Left hip recurrent prosthetic dislocation, closed reduction ASA Class: I Mallampati Airway Classification: Class I Time of Last PO Intake: 08:00 Preparation: child welfare social worker applied, pulse oximeter, capnometry used, supplemental O2 applied, suction/airway equipment at bedside and IV secured IV Propofol dose (mg): 80 ED Sedation Level: Moderate (Concious) Patient Tolerated Procedure: Well Complications: none Additional Comments: Tolerated sedation well, no airway interventions required. Returned to preprocedure mental status. Course Orders Ordered: ED Orders 03/06/25 13:19 XR hip w pel if done LT 2V Stat Discontinued Medications Hydromorphone HCl (Hydromorphone 0.5 Mg Inj) 0.5 mg IV NOW ONE Stop: 03/06/25 12:35 Last Admin: 03/06/25 12:42 Dose: 0.5 mg Documented By: JASSI Propofol (Propofol 200 Mg/20 Ml Vial) 200 mg IV NOW ONE Stop: 03/06/25 12:17 Last Admin: 03/06/25 13:17 Dose: 80 mg Documented By: JASSI Vital Signs Vital signs: Vital Signs - 8 hr 03/06/25 13:12 03/06/25 13:12 03/06/25 13:14 Pulse Rate 64 60 Respiratory Rate 12 15 Blood Pressure 158/109 H Pulse Oximetry 100 96 Oxygen Delivery Method 03/06/25 13:15 03/06/25 13:15 03/06/25 13:16 Pulse Rate 59 L 59 L Respiratory Rate 14 Blood Pressure 130/65 Pulse Oximetry 94 94 Oxygen Delivery Method Room Air 03/06/25 13:18 03/06/25 13:18 03/06/25 13:20 Pulse Rate 58 L Respiratory Rate 12 Blood Pressure 120/58 L 128/64 Pulse Oximetry 96 Oxygen Delivery Method 03/06/25 13:20 03/06/25 13:22 03/06/25 13:22 Pulse Rate 56 L 56 L Respiratory Rate 12 14 Blood Pressure 113/58 L Pulse Oximetry 98 98 Oxygen Delivery Method 03/06/25 13:25 03/06/25 13:25 03/06/25 13:27 Pulse Rate 58 L 58 L Respiratory Rate 18 19 Blood Pressure 123/58 L Pulse Oximetry 98 98 Oxygen Delivery Method 03/06/25 13:27 03/06/25 13:30 03/06/25 13:30 Pulse Rate 56 L Respiratory Rate 18 Blood Pressure 123/66 124/64 Pulse Oximetry 98 Oxygen Delivery Method Room Air 03/06/25 13:32 03/06/25 13:32 03/06/25 13:35 Pulse Rate 56 L Respiratory Rate 13 Blood Pressure 126/69 127/73 Pulse Oximetry 97 Oxygen Delivery Method 03/06/25 13:35 03/06/25 13:38 03/06/25 13:38 Pulse Rate 56 L 59 L Respiratory Rate 19 15 Blood Pressure 126/68 Pulse Oximetry 98 98 Oxygen Delivery Method 03/06/25 13:40 03/06/25 13:40 Pulse Rate 62 Respiratory Rate 16 Blood Pressure 128/68 Pulse Oximetry 98 Oxygen Delivery Method MDM - Extremity Injury (Lower) Differential Diagnosis Differential diagnosis: Likely acute internal derangement of knee MDM Narrative Medical decision making narrative: 80-year-old male with history of left hip replacement surgery due to arthritis on 02/03/2025, subsequent prosthetic dislocation 02/23/2025 treated in the operating room, another prosthetic dislocation 02/26/2025 treated with sedation and emergency room reduction, now with dislocation like symptoms this morning. X-ray confirms posterior dislocation. Chart reviewed regarding most recent evaluation 02/26/2025, Dr. White performing the reduction with IV sedation from emergency provider Dr. Dickerson. Postreduction CT scan showed no problems with the prosthetic identified. We will consult Orthopedic surgery on-call Dr. Nieves. 1300, Case discussed with Dr. White, she would like us to attempt IV sedation reduction here in the emergency department. Sedation and closed reduction procedure successful, clinical reduction, palpable and audible click, limb length then equal. Post reduction x-ray looked anatomic. Placed in brace which is available at bedside. See separate notes for reduction procedure and for sedation procedure. Recovered to preprocedure mental status. Placed in left hip/thigh brace. at bedside reported that patient was actually in fact not wearing his brace when this event happened this morning. Encouraged to wear his brace 23/06 until further orthopedic surgery follow up. Encouraged to call the office of orthopedist Dr. White tomorrow during regular hours, as this unfortunately is his 3rd dislocation, should he require future DEAN revision. DC home with . Return precautions discssued. Discharge Plan Departure Patient Disposition: Home Clinical Impression: Dislocation of internal left hip prosthesis Instructions: DI for Hip Dislocation -- Adult Activity Restrictions/Additional Instructions: History of left hip joint replacement surgery 02/03/2025 due to arthritis, subsequent dislocation on 02/23/2025 reduced by your orthopedic surgeon in the operating room, with subsequent recurrent dislocation 3 days later on 02/26/2025 reduced by your orthopedic surgeon with sedation here in the emergency department. This morning with clicking dislocation pain sensation after socks applied to your left leg leaning forward. X-ray showed dislocation of the prosthetic hip again on the left side. Case was briefly discussed with Orthopedic surgery on-call, who was a different orthopedic surgeon in the 1 who did your procedures, who requested we do sedation and attempted reduction here in the emergency department. IV sedation was performed, tolerated well, in the hip was successfully reduced. You are encouraged to wear your hip/thigh brace at all times for now. Follow up with your surgeon Dr. White, call her office tomorrow Friday during open office hours. Return to this/nearest emergency department for any change worsening symptoms or any concerns prior. You are encouraged to wear your left hip/thigh brace at all times for now, until you contact your operating surgeon Dr. White. Contact the office of Dr. White tomorrow Friday during regular open office hours. Prescriptions: No Action lisinopril 30 mg tablet 30 mg PO BID MDD 60mg Qty: 180 3RF acetaminophen 500 mg Tablet 1,000 mg PO Q6H PRN (Reason: Pain) oxycodone 5 mg capsule 5 mg PO Q6H PRN (Reason: pain) Qty: 30 0RF aspirin 81 mg tablet,delayed release (DR/EC) 81 mg PO BID Qty: 90 0RF Referrals: Olivia White MD [Physician] - Gael Dougherty DO [Primary Care Provider] - Stand Alone Forms: Patient Portal/API/Survey
[2025-03-06] MEDS: HYDROMORPHONE 0.5 MG INJ IV (12:42)
[2025-03-06] MEDS: propofoL 200 MG/20 ML VIAL IV (13:17)
--- NOTE | 2025-03-06 13:19 | DI.RAD.S_ITS ---
PROCEDURE: XR HIP W PEL IF DONE LT 2V INDICATIONS: post reduction TECHNIQUE: 2 views of the hip were acquired. COMPARISON: [facility], , XR HIP W PEL IF DONE LT 2V, 03/06/2025, 11:43. FINDINGS: Bones: Total left hip arthroplasty now in good position with anatomic articulation Soft tissues: No suspicious soft tissue calcifications or masses. IMPRESSION: Well-positioned left total hip arthroplasty without dislocation. No fracture Approved by: Vadim Cardona M.D. on 03/06/2025 at 13:35
== END 2025-03-06 13:54 | disposition home or self-care (01) ==
PROVIDERS: Emergency Provider Emergency Medicine; PCP Family Medicine
DX: X50.1XXA Overexertion from prolonged static or awkward postures, initial encounter; Y93.89 Activity, other specified; Y79.2 Prosthetic and other implants, materials and accessory orthopedic devices associated with adverse incidents; T84.021A Dislocation of internal left hip prosthesis, initial encounter; Z96.642 Presence of left artificial hip joint
CPT/HCPCS: 27265; 27266; 73502; 96374; 96375; 99152; 99284; J1171; J2704

== ENCOUNTER → 2025-03-09 09:32 | Outpatient (CLI) | payer OTHER, SELFPAY ==
[2025-03-09 10:28] LABS: Add Manual Diff / Slide Review NO; Basophils Absolute Auto 0 /uL (0-100); Basophils Percent Auto 0.5 % (0-2); Eosinophils Absolute Auto 300 /uL (0-450); Eosinophils Percent Auto 4.5 % (2-4); Hematocrit 37.7 % (41-53); Hemoglobin 12.6 g/dL (13.5-17.5); Lymphocytes Absolute Auto 2200 /uL (1100-4500); Lymphocytes Percent Auto 34.9 % (25-40); Mean Corpuscular HGB Conc 33.4 % (30-36); Mean Corpuscular Hemoglobin 30.9 PG (26-34); Mean Corpuscular Volume 92.5 fL (80-100); Monocytes Absolute Auto 400 /uL (0-900); Monocytes Percent Auto 6.6 % (3-14); Neutrophils Absolute Auto 3400 /uL (1500-7000); Neutrophils Percent Auto 53.5 % (50-75); Platelet Count 263 X10^3/uL (150-400); Red Blood Cell Count 4.08 X10^6/uL (4.5-5.9); Red Cell Distribution Width 13.4 % (11.6-14.8); White Blood Cell Count 6.3 X10^3/uL (4.5-11.0)
[2025-03-09 10:44] LABS: BUN Creatinine Ratio 21.3 (6-22); Blood Urea Nitrogen 27 mg/dL (9-20); Calcium 9.8 mg/dL (8.4-10.2); Carbon Dioxide 19 mmol/L (22-32); Chloride 108 mmol/L (98-107); Estimated Glomerular Filt Rate 58 mL/min (>60); Glucose 96 mg/dL (80-110); HEMOLYSIS < 15 (0-50); Potassium 4.4 mmol/L (3.4-5.1); Sodium 139 mmol/L (137-145)
== END ==
PROVIDERS: PCP Family Medicine; Referring Provider Orthopaedic Surgery; Visit Provider Orthopaedic Surgery
DX: Z01.812 Encounter for preprocedural laboratory examination (principal)
CPT/HCPCS: 36415; 80048; 85025

== ENCOUNTER 2025-03-18 10:49 | Inpatient (IN) | payer OTHER, SELFPAY ==
[2025-03-11 09:32] VITALS: BMI 29.8
[2025-03-18] VITALS (11 sets, daily range): BP systolic 92–168; BP diastolic 52–89; PULSE 61–79; RESP 14–18; TEMP 35.8–36.4; O2SAT 96–99; BMI 30.1
--- NOTE | 2025-03-18 | DI.RAD.S_ITS ---
PROCEDURE: XR HIP W PEL IF DONE LT 2V INDICATIONS: LT HIP REVISION TECHNIQUE: 2 views of the hip were acquired. COMPARISON: [facility], CR, XR HIP W PEL IF DONE LT 2V, 03/18/2025, 13:23. [facility], CR, XR HIP W PEL IF DONE LT 2V, 03/06/2025, 13:12. FINDINGS: Bones: No fractures or dislocations. No suspicious bony lesions. The visualized pelvic ring appears intact. Well-aligned, intact left total hip arthroplasty without hardware complication. Soft tissues: No suspicious soft tissue calcifications or masses. Subcutaneous gas, as expected. IMPRESSION: Well-aligned, intact left total hip arthroplasty without hardware complication. Dictated by: Paulino Gamino M.D. on 03/18/2025 at 16:30 Approved by: Paulino Gamino M.D. on 03/18/2025 at 16:30
--- NOTE | 2025-03-18 06:00 | DI.RAD.S_ITS ---
PROCEDURE: XR HIP W PEL IF DONE LT 2V INDICATIONS: DEAN TECHNIQUE: 2 views of the hip were acquired. COMPARISON: [facility], CR, XR HIP W PEL IF DONE LT 2V, 03/06/2025, 13:12. [facility], CR, XR HIP W PEL IF DONE LT 2V, 03/06/2025, 11:43. [facility], CR, XR PELVIS WITH LATERAL HIP LEFT, 03/09/2025, 8:25. FINDINGS AND IMPRESSION: Fluoroscopic images obtained for guidance. Please see operative note for full details. Left hip arthroplasty in expected position Dictated by: Osmani Pettit M.D. on 03/18/2025 at 15:24 Approved by: Osmani Petitt M.D. on 03/18/2025 at 15:25
[2025-03-18] MEDS: LACTATED RINGERS 1,000 ML 42 ML IV (11:38)
[2025-03-18] MEDS: CELECOXIB 200 MG CAPSULE PO (11:38)
[2025-03-18] MEDS: ACETAMINOPHEN 325 MG TABLET 975 MG PO (11:38)
--- NOTE | 2025-03-18 12:49 | PM.PREOP ---
Pre-operative Note Interval Note History & Physical reviewed/Exam performed by Physician: Yes Changes to H&P: No
[2025-03-18] MEDS: CEFAZOLIN 2 GM/100 ML PREMIX 100 ML IV ×2 (13:15→20:23)
[2025-03-18] MEDS: TRANEXAMIC ACID 1,000 MG VIAL 1000 MG INJ ×2 (13:25→15:10)
--- NOTE | 2025-03-18 13:39 | SUR.OPER ---
Supine on padded [place] table with bilateral legs secured in padded positioning boots and suspended in positioning spars, operative leg in traction per surgeon. Head on one pillow. Arm on non-operative side secured on padded armboard <90 degrees abduction. Arm on operative side padded and resting across chest then secured with tape over sheet. Padded perineal post in place per surgeon.
[2025-03-18] MEDS: BUPIVACAINE 0.25% W/ EPI 30 ML VIAL 60 ML INJ (14:01)
[2025-03-18] MEDS: BUPIVACAINE LIPOSOME 266 MG/20 ML VIAL INJ (15:00)
--- NOTE | 2025-03-18 15:42 | P.OP_ITS ---
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 Unfortunately was complicated by recurrent instability and dislocations. He has had several dislocations. He is failed conservative treatment including bracing and he was brought to the operating room for revision. The dislocations have been posterior. Non- operative management has failed and the patient has requested revision total hip replacement. The risks, benefits and alternatives to surgery were discussed with the patient prior to proceeding. Risks discussed included, but were not limited to, failure to relieve pain, leg length discrepancy, dislocation, stiffness, infection, nerve damage, deep venous thrombosis, pulmonary embolism, stroke, coma, heart attack, permanent paralysis and , as well as the potential need for eventual revision of the prosthetic. Surgeon: Olivia White Senior Marketing Data Analyst: Farzaneh Moe Anesthesia Type: General Operative Notes Findings: Generalized laxity with a large Shuck and instability with maximum flexion and internal rotation, acceptable positioning of the components, improved stability post revision Closure Type: primary Specimen(s): none sent Prosthetic devices, grafts, tissues, transplants, or devices: White and nephew size 40 femoral head, 40 x 58 +4 lateralized liner with a 20 degree lip, +8 femoral head cobalt chrome Estimated Blood Loss (mL): 150 Blood products transfused: none Procedure in detail: The patient was brought to the operating room. Patient was carefully positioned in the supine position. Time-out was performed and antibiotics were given. Anesthesia was induced. He was positioned in the on the table in order to allow hyperextension of the hip. I did an initial evaluation of his stability. He had a globally lax hip and with longitudinal traction his hip could be distracted up to about a cm. I flexed the hip up to 120? and with adduction and internal rotation I could dislocated posteriorly. It was felt to have an acceptable stability but there was no clear evidence of impingement anteriorly. The left lower extremity was prepped and draped in a standard sterile fashion. An anterior left hip incision was made 1 fingerbreadth lateral to the anterior superior iliac spine and extended distally towards the greater trochanter. The patient's previous skin incision was used and the healed incision was eclipsed. Dissection was carried out through skin and subcutaneous tissues. Superficial hemostasis was achieved. The fascia over the tensor fascia dinesh was defined and incised with a knife. There was pretty good healing of the fascia. Two Allis clamps were used to grasp the fascia. Tensor fascia dinesh was retracted laterally. A gelpi retractor was placed. Dissection was carried out down along the neck. Fluid was sent for Gram stain culture and sensitivity. I also sent deep cultures and PCR. A PA was used during the procedure and was essential for intraoperative retraction and safe implantation of the components. There was good visualization of the femoral neck. A Cobra was placed superior to the neck and head. A 2nd retractor was placed along the inferior aspect of the neck. A tag stitch was placed both in the superior and inferior limb of the capsular insertion. The hip was dislocated. The head was removed. I checked the position of the femoral component it did not appear to have retroversion. The position of the acetabulum was carefully checked. It did appear to have adequate anteversion and the anterior aspect of the acetabulum was under the bony rim. The polyethylene was removed without difficulty. I took deep cultures for cultures and PCR under the polyethylene. A trial acetabular liner was placed. It was opted to use a +4 lip liner as with a 40 head the maximum we could lengthen him with the 40 heads was an additional +4. I placed the lip inferiorly as the patient had previously had problems with posterior instability. Trial reduction was then done with a +8 femoral head. There was no tendency towards dislocation with maximum extension hyperextension and external rotation of 60?. There was no specific posterior impingement. I actually disconnected the foot from the bed so that I could hyperflex the hip. We also did a trial of traction and there was clearly substantial increased stability with the +4 liner and adding +4 to the femoral head neck length. It did appear stable in high flexion. The hip was redislocated. The trial components were removed. Final +4 lipped poly was placed without difficulty. Marcaine and Exparel were injected.. The head was placed without difficulty. The x-ray showed acceptable overall position, length, and no evidence of the femoral fracture. Wound was meticulously irrigated with normal saline. The hip was reduced and additional Exparel and Marcaine were injected. The capsule was closed with interrupted nonabsorbable sutures. The fascia of the tensor was closed with interrupted and running Vicryl. No drain was placed. Any tensor fascia dinesh muscle that appeared to be contused or injured which was a minimal amount was carefully resected. Capsule around the tensor was injected with Exparel and Marcaine. The skin was closed with barbed stitches for the subcutaneous tissue and skin. We also used surgical glue. The wound was dressed sterilely. Brief Betadine soak was also used and was meticulously irrigated with normal saline. Patient was transferred to recovery room in satisfactory condition. Complications: none Post-operative Condition: stable Disposition: Acute Care Plan for aftercare: The patient will be maintained on a standard total hip replacement protocol with weight bearing as tolerated and posterior and anterior hip precautions. Avoid flexion greater than 90, no maximum extension and external rotation, weight- bearing as tolerated. The patient will receive Aspirin and sequential compression devices for DVT prophylaxis. The patient will be discharged home when safe for the home environment.
[2025-03-18] MEDS: LACTATED RINGERS 1,000 ML 100 ML IV (16:06)
--- NOTE | 2025-03-18 16:54 | PT-IP ANOTE ---
PT eval order received. EMR reviewed. Checked on pt and stated that he does not think he is ready and still is numb on his LE. post-op folders provided to pt. will f/u tomorrow.
[2025-03-18] MEDS: ASPIRIN EC 81 MG TABLET PO (20:23)
[2025-03-18] MEDS: lisinopriL 10 MG TABLET 30 MG PO (20:23)
[2025-03-18] MEDS: DOCUSATE 100 MG CAPSULE PO (20:23)
[2025-03-18] MEDS: ACETAMINOPHEN 325 MG TABLET 650 MG PO (23:28)
--- NOTE | 2025-03-18 23:32 | PC.NURSE ---
Patient bladder scanned and noted to be retaining >550 ml on bladder scan. Prior RN unable to insert 16 Fr straight catheter. This RN inserted 16 Fr coude tip catheter, removed 800 mL clear yellow urine with a few small blood clots due to difficult first attempt of insertion by prior RN. Patient tolerated procedure well, denied any pain or pressure in abdomen, reported feeling much better. Due to void at 07:30 on 03/19/25.
[2025-03-19 02:00] VITALS: BP 109/65; PULSE 68; RESP 16; TEMP 36.3; O2SAT 97
[2025-03-19 05:16] LABS: Hematocrit 33.6 % (41-53); Hemoglobin 11.6 g/dL (13.5-17.5)
[2025-03-19] MEDS: CEFAZOLIN 2 GM/100 ML PREMIX 100 ML IV (05:42)
[2025-03-19 08:31] VITALS: BP 148/78; PULSE 72; RESP 16; TEMP 36.6; O2SAT 100
--- NOTE | 2025-03-19 08:31 | CM.DANOTE ---
Initial DCP Assessment Visit Note Reviewed EMR and team rounds for status updates. Met with pt at bedside to introduce self and role, pt was found to be alert/oriented, sitting upright in the recliner eating breakfast. He shared that his pain is well controlled, and that he's already been up walking around the herring. Pt lives modified independently with his spouse in their own home here in [place]. His will also plan to transport him home, likely after cg training with PT today. Pt declines any CM d/c assistance or resource needs at this time, has a plan for OP PT, and has a scheduled f/u with Ortho for post-op wound check. Payor: [facility] Adv Attending: Dr. Olivia White Pt is a 80 year-old M post-op day 1 from a L-total hip revision surgery. He had a previous L-total hip arthroplasty on 02/03/25, which has since become unstable. He's had several closed reductions in the ED, has used a hip abduction brace and knee mobilizer, and has tried PT with no lasting benefit or relief. Plan was made to go back to surgery for the L-hip revision. Pt states that he has all of the necessary DME at home for postoperative recovery needs, as well as strong family support. No further CM needs are identified at this time. Discharge Planning/Care Management Advanced directive, confirm from FAMILY Start: 03/18/25 16:15 Freq: Q24H Status: Active Protocol: Document 03/18/25 16:15 JJ (Rec: 03/18/25 17:19 JJ [id number]) Advance Directive, confirm on record Time 17:19 Person contacted pt Copy received No CM Discharge Assessment Start: 03/19/25 08:30 Freq: Status: Active Protocol: Document 03/19/25 08:30 DPL (Rec: 03/19/25 08:31 DPL [id number]) Discharge Planning Assessment Assigned Shipmaster ALEXANDRO Regan Advance Directives? Yes Advance Directives on File No History Provided By Patient,Medical Record Has Patient been admitted in last 30 No days? Prior Living Arrangements House Household Members spouse Type of transporation used prior to Drives own vehicle admit Independent with ADL's No: modified independent with a walker Is patient alert and oriented? Yes Needs Assistance With Home Chores / Shopping Caregiver for Another No Community Services used prior to Physical Therapy admission: DME Already Rented / Owned Bath Bench,Elevated Toilet Seat,FWW / Walker Patient/Family Preference OP PT Therapy Barriers to Discharge No Referrals Initiated None needed Whiteboard Updated in Patient Room with Yes name and ext. # of Shipmaster Review Status In Process Please Provide Date Initial DC 03/19/25 Assessment Was Performed Pre-Anesthesia Assessment Start: 03/11/25 09:32 Freq: Status: Active Protocol: Document 03/11/25 09:32 LB (Rec: 03/11/25 10:10 LB [id number]) Pre-Anesthesia Assessment PAC Comment 03/11/25 Phone assessment. Pt to check with Dr White when to hold aspirin. Preferred Name Philippe Patient Information Reviewed Via Phone Assessment Assessment Completed With Patient,Spouse Comment Shanika - Diagnostic Results BMP/CMP,CBC,EKG Comment 03/09/25 at . EKG at . Primary Care Provider Gael Dougherty Seen Specialist in Last 12 Months Yes Specialist Seen Emergency,Orthopedist Primary Language Nauruan Preferred Language Nauruan Binding Cutter Required No Height 177.8 cm Weight 94.347 kg Body Mass Index (BMI) 29.8 Hearing Ability Hearing Impaired,Use of Hearing Aid Visual Assist Glasses Dentition Type Teeth, Natural Present Barriers to Learning Auditory Other Aids No Hx Anesthesia Reactions No Hx Family Anesthesia Reaction No Hx Malignant Hyperthermia No Hx Blood Transfusions No Anesthesia Review Requested No Diamond Sizer No alcohol intake current alcohol intake frequency a few times a month Smoking Status Former smoker how long ago did patient quit smoking Quit 1975. Substance Use Type [#R] does not use Musculoskeletal Symptoms Back Pain,Difficulty Walking History of Falling (Recent or History of No ) Patient is completely paralyzed or No completely immobile Prosthesis or Orthotic Device Cane,Front Wheel Walker Mental Status Oriented to own ability Comment Will bring walker. Is patient on oxygen? No Does patient have HANSON/SOB No Hx Sleep Apnea No Currently Taking a Beta Huber No Can You Climb a Flight of Stairs Without Yes SOB Hx Chest Pain No Hx SOB No Hx Syncope or Dizziness No Anti-Coagulant Therapy Yes: Aspirin 81mg daily. Cardiac Testing No Hx Pacemaker/ICD No Urinary Catheter Present No Hx Urinary Self Catheterization No Diabetes No HgbA1C 5.8 Date 12/29/24 Hx Drug Resistant Organism No Presence of External or Internal Medical Yes: Left hip. Devices Received a COVID vaccine? Yes Comment Denies covid last 8 weeks. Marital Status Lives With spouse Current Living Arrangements House Number of Floors (Floors) One Floor Number of Stairs To Enter/Railing? 1 step. Support System Spouse Does the Patient Have Assistance After Yes Surgery Patient Discharge Plan Description Return Home Feels Safe in Current Environment Yes Do you have thoughts of harming yourself None or others? Do You Have Any Spiritual Beliefs That No May Affect Your HC Choices? Do You Have Any Cultural Practices That No May Affect Your HC Choices? Emergency Contact Name Shanika Brice - Emergency Contact Advance Directives? Yes Power of Wood Machinist Yes Power of Wood Machinist Name Shanika Brice - Power of Wood Machinist PAC Instructions Assistance for 24 hours post- op,Durable medical equipment, Medications to take/avoid, Nasal antibiotic,No ETOH/ petroleum product on skin DOS, NPO,Post-op transportation,Pre -surgical wash,Sensory aids, Sturdy shoes/comfortable clothes,Do not bring valuables and remove jewelry
[2025-03-19] MEDS: lisinopriL 10 MG TABLET 30 MG PO (09:21)
[2025-03-19] MEDS: ASPIRIN EC 81 MG TABLET PO (09:22)
[2025-03-19] MEDS: TAMSULOSIN 0.4 MG CAPSULE PO (09:22)
[2025-03-19] MEDS: DOCUSATE 100 MG CAPSULE PO (09:22)
[2025-03-19 09:25] VITALS: O2SAT 96
--- NOTE | 2025-03-19 09:43 | PT.IIE ---
Current Diagnoses Unspecified dislocation of left hip, initial encounter (03/18/25) Presence of left artificial hip joint (03/18/25) Surgery Performed Operation Date: 03/18/25 12:15 Actual Procedures p Revision, total arthroplasty, hip, acetabular component(Left) - Olivia White MD Surgical History (Last Updated 03/10/25 @ 07:46 by Sarah Alves, RN) H/O: knee surgery History of prostate biopsy S/P total left hip arthroplasty (02/03/25) Medical History (Last Updated 03/11/25 @ 10:11 by Sarah Alves, RN) Baastrup disease of lumbar spine Benign prostatic hyperplasia with lower urinary tract symptoms Chicken pox (1953) Chronic bilateral low back pain without sciatica Chronic left hip pain Chronic thoracic back pain CKD (chronic kidney disease) stage 3, GFR 30-59 ml/min Elevated BUN Elevated PSA (2011) Excessive daytime sleepiness Fatigue Giant comedone H/O agent [place] exposure Hearing loss (1995) Hearing loss History of COVID-19 (05/2024) History of sepsis History of sepsis (08/14/24) HTN (hypertension) Hx of acute cholangitis Hx of reduction of closed dislocation (02/26/25) Lumbar degenerative disc disease Lumbar radiculopathy Lumbar spinal stenosis Lumbar spondylosis Measles Mumps (1956) Normocytic anemia, not due to blood loss RBBB (right bundle branch block) Secondhand smoke exposure Shoulder pain (05/2014) Strain of muscle, fascia and tendon of lower back, initial encounter Tinnitus, bilateral Urinary stone Vertigo (1997) Physical Therapy Inpatient Evaluation/Re-Eval M1 PT/OT-IP Prior Functional Status Start: 03/19/25 09:28 Freq: NEEDED Status: Active Protocol: Document 03/19/25 09:29 AMB (Rec: 03/19/25 09:43 AMB [id number]) Medical Review Prior Functional Status Medical History Reviewed Yes Communication [place], otherwise appears WNL Mobility and Gait Independent in the community Social History Household Members spouse Living Arrangements House Number of Stairs To Enter/Railing? 1 Home Environment Standard Height Toilet,Walk in Shower Home Equipment Front Wheel Walker,Grab Bars Near Toilet,Grab Bars In Shower Employment Status Retired M2 PT-IP Current Condition Start: 03/19/25 09:28 Freq: NEEDED Status: Active Protocol: Document 03/19/25 09:29 AMB (Rec: 03/19/25 09:43 AMB [id number]) Physical Therapy Current Condition Current Condition Evaluation Date 03/19/25 Treatment Diagnosis L DEAN revision Onset Date 03/18/25 M3 PT-IP Subjective Start: 03/19/25 09:28 Freq: NEEDED Status: Active Protocol: Document 03/19/25 09:29 AMB (Rec: 03/19/25 09:43 AMB [id number]) Subjective Physical Therapy Visit Type Type Initial Evaluation Visit Start Time 08:40 Visit Stop Time 09:20 Physical Therapy Visit Comments Patient Comments Pt is happy to get up, seated in chair, he has already been walking with nursing. He is hoping to be able to void his bladder as he had to be cathed this morning and that is holding up his discharge Therapy Pain Assessment Pain When Pain Assessed At Rest Pain Present Pain Present Denied Pain M4 PT-IP Mobility and Gait Start: 03/19/25 09:28 Freq: NEEDED Status: Active Protocol: Document 03/19/25 09:29 AMB (Rec: 03/19/25 09:43 AMB [id number]) PT-Transfer Assessment Sit to and From Stand Sit to and from Stand Standby Assistance,Use of Upper Extremities Equipment Transfer Assistive Device Gait Belt,Front Wheeled Walker Transfers Transfer Destination Chair Transfer Technique Stand Step Pivot Transfer Ability Level of Assist Standby Assistance,Use of Upper Extremities Comments Mobility Comments Philippe needed verbal cues to maintain hip precautions (not flexing hip greater than 90 degrees during sit to stand transfers). But otherwise was able to move from sit to stand with good stability. Gait Assessment Gait Gait Assistance Required: Standby Assistance Distance (Feet) 200 Assistive Devices Assistive Device Front Wheeled Walker Gait Deviations General Gait Pattern Antalgic,Decreased Stride Length Factors Limiting Gait Function Factors Limiting Gait Function Pain Comments Gait Comments Philippe ambulated from his room to the PT stairs with FWW and SBA with good stability and safety awareness. Stair Climbing Assessment Evaluation Level of Assist On Stairs Standby Assistance,1 Person Assistance Devices Stair Climbing Assistive Devices Right Railing Technique/Endurance Stair Climbing Direction Ascend and Descend Stair Climbing Technique Step to Step Number of Steps Climbed 4 Query Text: Stair Climbing Set # Repetitions (reps) 1 Comments Stair Climbing Comments Education provided on appropriate sequencing, but once educated was able to perform with good safety and stability. PT-Balance Assessment Standing Balance and Reactions Static Standing Balance Ability Good Dynamic Standing Balance Ability Fair M5 PT-IP Objective Assessments Start: 03/19/25 09:28 Freq: NEEDED Status: Active Protocol: Document 03/19/25 09:29 AMB (Rec: 03/19/25 09:43 AMB [id number]) Orientation Orientation/Cognition Level of Alertness Alert Strength Lower Extremity Strength Assessment Left Impaired M6 PT-IP Treatment Start: 03/19/25 09:28 Freq: NEEDED Status: Active Protocol: Document 03/19/25 09:29 AMB (Rec: 03/19/25 09:43 AMB [id number]) Physical Therapy Treatment Education Education Provided Precautions,Weight Bearing Status,Post-Op Packet,Safety M7 PT-IP Assessment and Plan Start: 03/19/25 09:28 Freq: NEEDED Status: Active Protocol: Document 03/19/25 09:29 AMB (Rec: 03/19/25 09:43 AMB [id number]) PT Summary Assessment and Plan Potential Rehabilitation Potential Good Status of Condition at Evaluation Stable Summary Impairments Strength,Balance,Transfers, Gait,Activity Tolerance Assessment Summary Philippe had a L total hip revision and per op notes is WBAT with both anterior and posterior precautions (no hip flexion greater than 90, no end range extension, no external rotation). He had 3 prior L hip dislocations prior to the revision surgery. He was able to perform all transfers, gait and stairs with SBA with extra education in how to safely comply with his hip precautions. Also discussed car transfers, toilet transfers, and timeline for safe return to driving and boating. His discharge may be delayed because he has not yet been able to void urine, but from a mobility stand point he should be able to return home when medically stable with his . Goals Transfer Goal Independent Gait Goal Independent Gait Distance 250 Days to Meet Goals 5 Frequency of Treatment Frequency Of Treatment Twice a Day Treatment Plan Physical Therapy Treatment Plan Bed Mobility Training,Transfer Training,Gait Training, Therapeutic Exercise,Balance Retraining,Post Op Education Precautions Posterior Hip Precautions No Hip Flexion > 90 degrees,No Hip Internal Rotation,No Hip Adduction Anterior Hip Precautions No Hip Extension,No Hip External Rotation Weight Bearing Status Weight Bearing Status Weight Bear as Tolerated Recommendations To Nursing Amount of Assist Needed Standby Assistance Discharge Recommendations PT Discharge Recommendations Home Transportation Needs at Discharge Private Vehicle - PT assist 1
--- NOTE | 2025-03-19 10:06 | P.DS_ITS ---
History of Present Illness History of Present Illness Date Patient Seen: 03/19/25 Time Patient Seen: 10:06 Chief complaint: L DEAN revision Narrative: The patient had a left total hip arthroplasty. Unfortunately was complicated by recurrent instability and dislocations. He has had several dislocations. He is failed conservative treatment including bracing and he was brought to the operating room for revision. The dislocations have been posterior. Non- operative management has failed and the patient has requested revision total hip replacement. The risks, benefits and alternatives to surgery were discussed with the patient prior to proceeding. Risks discussed included, but were not limited to, failure to relieve pain, leg length discrepancy, dislocation, stiffness, infection, nerve damage, deep venous thrombosis, pulmonary embolism, stroke, coma, heart attack, permanent paralysis and , as well as the potential need for eventual revision of the prosthetic. Discharge Providers Provider Date of admission: 03/18/25 10:49 Discharge Date: 03/19/25 Primary care physician: Gael Dougherty DO Consults: 03/18/25 06:00 Consult to Anesthesiology Routine Comment: Consulting Provider: Anesthesiologist Reason for consultation: Regional block for post operative pain control Has provider been notified: No 03/18/25 15:50 Consult to Discharge Planning Routine Comment: Consult to Occupational Therapy Evaluate & Treat Comment: Physician Instructions: Evaluate and treat Consult to Physical Therapy Evaluate & Treat Comment: Physician Instructions: post op DEAN protocol Discharge provider: Johnny Page PA-C Summary Hospital Course Discharge Diagnosis: Left hip instability after a left total hip arthroplasty anterior approach Hospital Course: Procedure: Left total hip revision with revision of acetabular liner and head Same procedure as scheduled: Yes Surgeon: Olivia White Property Controller: Farzaneh Moe Anesthesia Type: General Operative Notes Findings: Generalized laxity with a large Shuck and instability with maximum flexion and internal rotation, acceptable positioning of the components, improved stability post revision Closure Type: primary Specimen(s): none sent Prosthetic devices, grafts, tissues, transplants, or devices: White and nephew size 40 femoral head, 40 x 58 +4 lateralized liner with a 20 degree lip, +8 femoral head cobalt chrome Estimated Blood Loss (mL): 150 Blood products transfused: none Status at Discharge Cognitive/behavioral status at discharge: oriented Functional status at discharge: uses cane/walker Overall status at discharge: patient is back to baseline Time Spent with Patient Time spent: Less than 30 minutes Exam Vital Signs (past 8 hours): - 03/19/25 08:31 03/19/25 09:25 Temperature 97.8 F Pulse Rate 72 Respiratory Rate 16 Blood Pressure 148/78 H Pulse Oximetry 100 96 Oxygen Delivery Method Room Air Oxygen Flow Rate 0 Oxygen Delivery Method Room Air Oxygen Flow Rate 0 Narrative Exam Narrative: Patient found sitting comfortably in bed. Patient's pain is controlled with oral medication. ?Pain is localized to surgical site. ?Patient declines any new numbness or tingling at the surgical extremity. ?Patient denies any shortness of breath, dizziness, light-headedness, nausea, vomiting, fever or chills. 5/5 strength in hip flexors, quadriceps, hamstrings, DF, PF, EHL bilaterally. Sensation to light touch intact throughout BLE. Calves soft, compressible, nontender. Dressing placed intraoperatively CDI. Patient was unable to void last night. A straight catheter was performed and was able to alleviate a 1000 cc of urine. Resp Effort & Inspection: normal respiratory effort and able to speak in complete sentences Objective Labs 03/19/25 04:47 Labs: Laboratory Results - last 24 hr 03/18/25 03/19/25 17:55 04:47 Hgb 11.6 L Hct 33.6 L Blood Type AB Positive Antibody Screen Negative [facility] Medical History (Updated 03/13/25 @ 00:01 by ) Hx of reduction of closed dislocation (02/26/25) History of sepsis (08/14/24) History of COVID-19 (05/2024) RBBB (right bundle branch block) Chronic left hip pain History of sepsis Urinary stone Elevated BUN Hx of acute cholangitis Secondhand smoke exposure Benign prostatic hyperplasia with lower urinary tract symptoms Lumbar radiculopathy Strain of muscle, fascia and tendon of lower back, initial encounter Lumbar degenerative disc disease Lumbar spinal stenosis Lumbar spondylosis Baastrup disease of lumbar spine H/O agent [place] exposure Chronic bilateral low back pain without sciatica Chronic thoracic back pain Hearing loss Excessive daytime sleepiness CKD (chronic kidney disease) stage 3, GFR 30-59 ml/min HTN (hypertension) Giant comedone Fatigue Normocytic anemia, not due to blood loss Tinnitus, bilateral Chicken pox (1953) Hearing loss (1995) Measles Mumps (1956) Shoulder pain (05/2014) Vertigo (1997) Elevated PSA (2011) Surgical History (Updated 03/10/25 @ 07:46 by Sarah Alves RN) S/P total left hip arthroplasty (02/03/25) History of prostate biopsy H/O: knee surgery Family History Mother Cancer Father MVA (motor vehicle accident) Other Hyperlipidemia Hypertension Social History marital status: household members: spouse occupational status: previously employed leisure activities: exercise Smoking Status: Former smoker alcohol intake: current frequency: 3-4 times per week duration: 45-60 minutes/day Discharge Assessment & Plan Assessment and Plan Assessment: Status post Left total hip revision with revision of acetabular liner and head Plan of Treatment: Flomax 0.4mg ordered, start today. Prescribed to retail pharmacy to continue up to 2 weeks. Discharge to home pending PT approval and able to void. Anterior and Posterior Hip Pre-cautions. Avoid flexion greater than 90, no maximum extension and external rotation. Ambulate and weight bear as tolerated with assistive devices. ? Aspirin 81 mg twice a day for 6 weeks for DVT prevention. ? Baseline pain relief with acetaminophen 500mg every 4 hours as needed and ibuprofen 400 mg every 4 hours as needed. ?Patient has been prescribed oxycodone 5 mg every 4 ?hours as needed for breakthrough pain. ? Initiate physical therapy in the next 5-10 days. ? Keep dressing clean and dry. Keep dressing on until first office visit. If dressing becomes dirty or disrupted, replace with appropriate sized dressing. Follow up in clinic in 2 weeks for wound check. Contact clinic if there are any questions or concerns. Discharge Plan Discharge Plan Patient Disposition: Home Provider Discharge Comment: DC pending PT approval and able to void on own Discharge orders & Medications Prescriptions: New tamsulosin [Flomax] 0.4 mg Capsule 0.4 mg PO DAILY Qty: 14 0RF Continued lisinopril 30 mg tablet 30 mg PO BID MDD 60mg Qty: 180 3RF acetaminophen 500 mg Tablet 1,000 mg PO Q6H PRN (Reason: Pain) oxycodone 5 mg capsule 5 mg PO Q6H PRN (Reason: pain) Qty: 30 0RF aspirin 81 mg tablet,delayed release (DR/EC) 81 mg PO BID Qty: 90 0RF Follow up/Referrals: Gael Dougherty DO [Primary Care Provider] - Diet/Activity/Treatments Diet: Diet as Tolerated Activity: Ambulate frequently with assistive devices. Cold/Heat Therapy: Ice frequently for up to 20 minutes every hour as needed. Skin/Wound/Dressing Care Report to your healthcare provider any signs of infection, such as:: chills, fever, night sweats, unusual drainage and unusual redness Dressing: Keep dressing clean and dry. Change if it becomes dirty or disrupted. Visit Report/Discharge Packet Instructions: DI for Hip Replacement Stand Alone Forms: Patient Portal/API, Stroke Signs & Symptoms, Surgery Discharge Discharge Data Primary Care Provider: Gael Dougherty Quality VTE Deep Vein Thrombosis/Pulmonary Embolism Present on Admission: No
--- NOTE | 2025-03-19 10:13 | PC.NURSE ---
Addendum entered by Nguyen Nance R.N. 03/19/25 14:12: Pt able to void after lunch Orders for D/C received SL D/C intact Home instructions given w/apparent understanding Pt escorted by staff via W/C to waiting vehicle. D/C in stable post op status Original Note: Pt cath removed at 0730 for 1000cc clear yellow urine. AMbulated in hallway w/staff x 3 w/o incidence. Began flomax. awaiting pt to be able to void prior to discharge. Pt sitting in chair Call light w/in reach. pt calls appropriately for needs. Continue w/plan of care.
== END 2025-03-19 14:25 | disposition home or self-care (01) | DRG 468 ==
PROVIDERS: Admitting Provider Orthopaedic Surgery; PCP Family Medicine; Referring Provider Family Medicine; Visit Provider Orthopaedic Surgery
PROC: 0SRB0JA Replacement of Left Hip Joint with Synthetic Substitute, Uncemented, Open Approach (ICD-10-PCS; principal; 2025-03-18 12:15)
DX: T84.021A Dislocation of internal left hip prosthesis, initial encounter (principal); I10 Essential (primary) hypertension; Y79.2 Prosthetic and other implants, materials and accessory orthopedic devices associated with adverse incidents; Z87.891 Personal history of nicotine dependence
CPT/HCPCS: 36415; 73502; 76000; 85014; 85018; 86850; 86900; 86901; 87070; 87075; 87205; 87801; 97116; 97161; C1776; J0666; J0690; J1100; J2405; J2704; J3010

== ENCOUNTER → 2025-03-29 09:11 | Outpatient (CLI) | payer OTHER, SELFPAY ==
[2025-03-18 16:08] VITALS: BMI 30.1
[2025-03-29 10:28] LABS: Appearance Urine UA CLEAR; Bilirubin Urine UA NEGATIVE (NEGATIVE); Color Urine UA YELLOW; Glucose Urine UA NEGATIVE (Negative); Ketones Urine UA NEGATIVE (NEGATIVE); Leukocyte Esterase Urine UA NEGATIVE (NEGATIVE); Nitrite Urine UA NEGATIVE (Negative); Occult Blood Urine UA TRACE-INTACT (Negative); Protein Urine UA NEGATIVE (Negative); Specific Gravity Urine UA 1.025 (1.000-1.035); Urobilinogen Urine UA 0.2 E.U./dL (0.2); pH Urine UA 5.5 (4.5-8.0)
[2025-03-29 11:14] LABS: BUN Creatinine Ratio 22.5 (6-22); Blood Urea Nitrogen 29 mg/dL (9-20); Calcium 9.4 mg/dL (8.4-10.2); Carbon Dioxide 20 mmol/L (22-32); Chloride 109 mmol/L (98-107); Estimated Glomerular Filt Rate 57 mL/min (>60); Glucose 95 mg/dL (70-99); HEMOLYSIS < 15 (0-50); Potassium 4.8 mmol/L (3.4-5.1); Sodium 139 mmol/L (137-145)
[2025-03-29 11:31] LABS: RBC Urine 0-1/HPF (0-5/HPF); Urine Volume 10mL (spun)
[2025-03-29 11:32] LABS: Bacteria Urine None Seen; Culture Indicated Urine Cult Not Indicated; Squamous Epithelial Cell Urine 0-1 /HPF (0-5/HPF); WBC Urine None Seen (0-5/HPF)
== END ==
PROVIDERS: PCP Family Medicine; Referring Provider Physician Assistant; Visit Provider Physician Assistant
DX: N20.9 Urinary calculus, unspecified (principal)
CPT/HCPCS: 36415; 80048; 81001

== ENCOUNTER → 2025-03-31 08:10 | Outpatient (CLI) | payer OTHER, SELFPAY ==
[2025-03-18 16:08] VITALS: BMI 30.1
--- NOTE | 2025-03-31 08:12 | DI.RAD.S_ITS ---
PROCEDURE: XR KUB INDICATIONS: Follow-up bladder calculus TECHNIQUE: One view of the abdomen acquired. COMPARISON: [facility], CR, XR HIP W PEL IF DONE LT 2V, 03/18/2025, 15:17. FINDINGS: Surgical changes and devices: Left hip arthroplasty. Bowel: Bowel gas pattern is normal. Soft tissues: No suspicious abdominal calcifications. Visualized solid organ contours appear normal in size. Bones: No suspicious bony lesions. IMPRESSION: No renal or bladder calculi are identified Dictated by: Chilo Collins M.D. on 03/31/2025 at 14:06 Approved by: Chilo Collins M.D. on 03/31/2025 at 14:10
== END ==
PROVIDERS: PCP Family Medicine; Referring Provider Urology; Visit Provider Urology
DX: Z87.442 Personal history of urinary calculi (principal); Z09 Encounter for follow-up examination after completed treatment for conditions other than malignant neoplasm
CPT/HCPCS: 74018

== ENCOUNTER → 2025-04-05 07:16 | Outpatient (CLI) | payer OTHER, SELFPAY ==
[2025-03-18 16:08] VITALS: BMI 30.1
--- NOTE | 2025-04-05 07:18 | DI.US.S_ITS ---
PROCEDURE: US RENAL COMPLETE INDICATIONS: Hx of stone distal R ureter TECHNIQUE: Real-time scanning was performed of the kidneys and bladder, with image documentation. COMPARISON: None. FINDINGS: Kidneys: Right kidney measures 12 centimeters. 2.9 x 2.7 centimeter right upper pole simple appearing cyst is present. No hydronephrosis. Left kidney measures 10 centimeters. Superior pole 2.3 x 2.5 centimeter simple appearing cyst is seen. No hydronephrosis. No discrete stones. Bladder: 7 millimeter stone is seen near the left UVJ. Ureteral jets not seen at the time of exam. Postvoid residual is 24 cc. Miscellaneous: No free pelvic fluid. IMPRESSION: No hydronephrosis bilaterally. 7 millimeter stone is seen either within the urinary bladder or at the left UVJ. Postvoid residual of 24 cc. Dictated by: Osmani Pettit M.D. on 04/05/2025 at 11:24 Approved by: Osmani Pettit M.D. on 04/05/2025 at 11:26
== END ==
LOC: US 07:17
PROVIDERS: PCP Family Medicine; Referring Provider Physician Assistant; Visit Provider Physician Assistant
DX: N20.9 Urinary calculus, unspecified (principal); N28.1 Cyst of kidney, acquired
CPT/HCPCS: 76770

== ENCOUNTER → 2025-06-09 16:59 | Outpatient (CLI) | payer OTHER, SELFPAY ==
[2025-03-18 16:08] VITALS: BMI 30.1
== END ==
PROVIDERS: PCP Family Medicine; Visit Provider Urology
DX: N40.1 Benign prostatic hyperplasia with lower urinary tract symptoms (principal); R39.9 Unspecified symptoms and signs involving the genitourinary system; N21.0 Calculus in bladder; R97.20 Elevated prostate specific antigen [PSA]
CPT/HCPCS: 87077; 87086; 87186; 99214

== ENCOUNTER 2025-06-21 10:51 | Day surgery (SDC) | payer OTHER, SELFPAY ==
[2025-03-18 16:08] VITALS: BMI 30.1
[2025-06-15 13:30] VITALS: BMI 29.4
[2025-06-21] VITALS (13 sets, daily range): BP systolic 80–143; BP diastolic 45–78; PULSE 50–68; RESP 12–18; TEMP 36.1–36.4; O2SAT 94–100; BMI 30.1
[2025-06-21] MEDS: LACTATED RINGERS 1,000 ML 21 ML IV (11:32)
--- NOTE | 2025-06-21 12:45 | PM.PREOP ---
Pre-operative Note COVID-19 COVID-19 status: Not tested Interval Note History & Physical reviewed/Exam performed by Physician: Yes Changes to H&P: No
[2025-06-21] MEDS: levoFLOXacin 500 MG/100 ML PIGGYBACK 100 MG IV (13:25)
--- NOTE | 2025-06-21 13:42 | SUR.OPER ---
Lithotomy on padded OR bed, head on pillow, arms secured on padded arm boards at <90 degrees abduction. Legs secured in padded yellow fins stirrups.
--- NOTE | 2025-06-21 14:29 | PM.OP.1 ---
Operative Date/Time/Diagnoses Date of procedure: 06/21/25 Time of procedure: 14:00 Pre-op diagnosis: Bladder calculus Post-op diagnosis: same Procedure & Clinicians Procedure: Cystolithalopaxy Same procedure(s) as scheduled: Yes Indications: 80 y/o M noted to have a ~2cm bladder calculus on imaging in Oct that was confirmed with Dr. Reynolds via cystoscopy in March of 2025. Discussed treatment options to include observation (not recommended secondary to the size of the calculus and unlikelihood to spontaneously pass) vs a cystolithalopaxy. Discussed risks of the procedure to include but not limited to pain, bleeding, infection, injury to urethra/prostate/bladder/ureteral orifice, need for a ureteral stent, prolonged catheterization, and possible open repair of ureteral and/or bladder injury. Surgeon: Jeremiah Carreno Click Yes if Unassisted: Yes Anesthesia Type: General Operative Notes Findings: Moderate sized bladder calculus (~2cm) Closure Type: not applicable Specimen(s): other (bladder stone) Applied: none Estimated Blood Loss (mL): 1 Blood products transfused: none Procedure in detail: Patient was identified in the preoperative holding area and consent confirmed. He was then brought to the operating room where general anesthesia was induced. He was then placed in the low lithotomy position. He was then prepped and draped in the usual sterile fashion. A surgical timeout was conducted and all were in agreement. Access to the bladder was obtained via a 21Fr cystoscope. Complete cystoscopy was then performed using a 30 and 70 degree lens. Bilateral ureteral orifice were easily visualized and noted to be orthotopic in nature. He had grade 2 trabeculations throughout his bladder, no concerning masses or lesions were appreciated. A moderate sized bladder calculus was noted at the dependent portion of his bladder. This was manually evacuated through the cystoscope. Hemostasis was evaluated and noted to be excellent at case end. The cystoscope was then removed. Anesthesia was reversed, he was extubated in the OR and transferred to the PACU in stable condition for recovery. Complications: none Post-operative Condition: stable Disposition: PACU Plan for aftercare: Discharge home from PACU. Will return to clinic for postop appointment in 3 months.
[2025-06-21] MEDS: LACTATED RINGERS 1,000 ML 42 ML IV (15:17)
== END 2025-06-21 15:43 | disposition home or self-care (01) ==
PROVIDERS: PCP Family Medicine; Referring Provider Family Medicine; Visit Provider Urology
PROC: 0TCB8ZZ Extirpation of Matter from Bladder, Via Natural or Artificial Opening Endoscopic (ICD-10-PCS; CPT 52317; principal; 2025-06-21 12:15)
DX: N21.0 Calculus in bladder (principal); R97.20 Elevated prostate specific antigen [PSA]; R35.0 Frequency of micturition; R35.1 Nocturia; R33.9 Retention of urine, unspecified
CPT/HCPCS: 52317; 82365; J1100; J1956; J2405; J2704; J3010; J3490

== ENCOUNTER → 2025-09-19 07:52 | Outpatient (CLI) | payer OTHER, SELFPAY ==
[2025-03-18 16:08] VITALS: BMI 30.1
[2025-09-21 06:36] LABS: PSA, Total 8.2 ng/mL (0.0-4.0)
== END ==
PROVIDERS: PCP Family Medicine; Referring Provider Family Medicine; Visit Provider Urology
DX: R97.20 Elevated prostate specific antigen [PSA] (principal)
CPT/HCPCS: 36415; 84153; 84154